=== PATIENT | male | born 1940 ===

== ENCOUNTER 2016-09-25 13:36 | Inpatient (IN) | payer MEDICARE ==
[2016-09-25 14:03] LABS: BASO % 0.8 % (0.0-2.0); EOS # 0.3 K/uL (0.0-0.7); EOS % 4.7 % (0.0-4.0); HEMATOCRIT 40.3 % (35.0-51.0); LYMPH # 0.9 K/uL (1.0-4.3); LYMPH % 17.5 % (20.0-40.0); MEAN CELL VOLUME 87.9 fl (80.0-94.0); MEAN CORPUSCULAR HEMOGLOBIN 29.4 pg (27.0-31.0); MEAN CORPUSCULAR HGB CONC 33.4 g/dL (33.0-37.0); MEAN PLATELET VOLUME 8.2 fl (7.2-11.7); MONO # 0.6 K/uL (0.0-0.8); MONO % 11.1 % (0.0-10.0); NEUT # 3.5 K/uL (1.8-7.0); NEUT % 65.9 % (50.0-75.0); NRBC % 0.1 % (0.0-0.0); RED CELL DISTRIBUTION WIDTH 14.3 % (11.5-14.5); WHITE BLOOD COUNT 5.4 K/uL (4.8-10.8)
[2016-09-25 14:17] LABS: ALB/GLOB RATIO 1.3 (1.0-2.1); ALKALINE PHOSPHATASE 84 U/L (38-126); ALT/SGPT 29 U/L (21-72); AST/SGOT 22 U/L (17-59); BILIRUBIN,TOTAL 0.5 mg/dl (0.2-1.3); BLOOD UREA NITROGEN 19 mg/dl (9-20); CALCIUM 9.3 mg/dL (8.4-10.2); CARBON DIOXIDE 24 mmol/L (22-30); CHLORIDE 107 mmol/L (98-107); CHOLESTEROL 243 mg/dL (0-199); GFR AFRICAN-AMERICAN > 60; GLUCOSE,RANDOM 91 mg/dL (75-110); POTASSIUM 4.5 MMOL/L (3.6-5.0); SODIUM 143 mmol/l (132-148); TOTAL PROTEIN 7.1 G/DL (6.3-8.2)
[2016-09-25 14:18] LABS: PARTIAL THROMBOPLASTIN TIME 23.1 SECONDS (23.3-32.5)
--- NOTE | 2016-09-25 14:28 | CT ---
PROCEDURE: CT HEAD WITHOUT CONTRAST. HISTORY: code stroke COMPARISON: None available. TECHNIQUE: Axial computed tomography images were obtained through the head/brain without intravenous contrast. Radiation dose: Total exam DLP = 847.77 MGy-cm. FINDINGS: HEMORRHAGE: No intracranial hemorrhage. BRAIN: Diffuse atrophy with prominence of the ventricles and sulci noted. No mass effect or edema. Hypodense region involving the right putamen and right anterior limb internal capsule consistent with encephalomalacia. Please note that MRI with diffusion imaging is more sensitive in the detection of acute ischemic event. VENTRICLES: Ex vacuo dilatation of the right frontal horn lateral ventricle. No hydrocephalus. CALVARIUM: Unremarkable. PARANASAL SINUSES: Unremarkable as visualized. No significant inflammatory changes. MASTOID AIR CELLS: Unremarkable as visualized. No inflammatory changes. OTHER FINDINGS: None. IMPRESSION: Evidence of encephalomalacia involving the right putamen and right anterior limb internal capsule. Generalized atrophy. Findings discussed with Dr. Basestt on 09/25/16 at 2:20 p.m..
--- NOTE | 2016-09-25 14:36 | RAD ---
HISTORY: tia COMPARISON: Chest x-ray performed 06/16/15 TECHNIQUE: Chest, one view. FINDINGS: Examination limited by habitus and hypoinflation. LUNGS: No focal consolidation. Please note that chest x-ray has limited sensitivity for the detection of pulmonary masses. PLEURA: No significant pleural effusion identified. No definite pneumothorax . CARDIOVASCULAR: Cardiomegaly. Atherosclerotic calcifications of an ectatic aorta. OSSEOUS STRUCTURES: Degenerative changes of the spine and shoulders. VISUALIZED UPPER ABDOMEN: Unremarkable. OTHER FINDINGS: None. IMPRESSION: Cardiomegaly. Atherosclerotic calcifications of an ectatic aorta.
--- NOTE | 2016-09-25 14:40 | ED PDOC ---
HPI:STROKE - Historian Historian: Patient, Spouse (according to , patient had noticed numbness around the mouth that started while he was shoveling snow with ) - Chief Complaint Chief Complaint: Numbness, Slurred speech - Onset Date: 09/25/16 Time: 12:30 - Timing Timing: Resolved - Context Context: Exercising NIHSS Stroke Scale - Date/Time Evaluation Performed Date Performed: 09/25/16 Time Performed: 13:45 When Was NIHSS Performed: Baseline - How Severe is the Stroke Level of Consciousness: 0=Alert LOC to Questions: 0=Both comments correct LOC to commands: 0=Obeys both correctly Best Gaze: 0=Normal Visual: 0=No visual loss Facial: 0=Normal Motor Arm - Left: 0=No drift Motor Arm - Right: 0=No drift Motor Leg - Left: 0=No drift Motor Leg - Right: 0=No drift Limb Ataxia: 0=Absent Sensory: 0=Normal Best Language: 0=No aphasia Dysarthia: 0=Normal articulation Extinction & Inattention (Neglect): 0=Normal, no object Score: 0 rTPA Inclusion/Exclusion - Refusal of Treatment Patient Refused Treatment: No - Inclusion Criteria for Altepase Patient is 18 years or Older: Yes The Clinical Diagnosis of Ischemic Stroke That is Causing a Potentially Disabling Neurological Deficit: Yes Time of Onset is Well Established to be Less Than 270 Minute Before Treatment Would Begin: Yes Risk/Benefit Discussed With Patient/Family Member Present: Yes - Exclusion Criteria for Altepase Uncontrolled Hypertension at Time of Treatment (Systolic BP above 185 or Diastolic BP above 110 mmHg): No Active Internal Bleeding: No Known Bleeding Diathesis Including but Not Limited to: Platelets Below 100,000/ mm,PTT Above 40 sec After Heparin Use, Current Use of Oral Anitcoagulant With INR Greater Than 1.7 or PT Greater Than 15 secs: No Evidence of an Intracranial Hemorrhage: No Evidence of Major Acute Infarct With Signs Greater Than 1/3 MCA Territory: No Suspicion of Subarachnoid Hemorrhage on Pretreatment Evaluation Even if CT Head Negative For Hemorrhage: No - Warning to TPA With Conditions Following Conditions Weighed Against Anticipated Benefit: No Condition: Stroke Serevity Too Mild Past Medical History Reviewed: Historical Data, Nursing Documentation, Vital Signs Vital Signs: Last Vital Signs Temp 98.8 F 09/25/16 13:43 Pulse 64 09/25/16 14:26 Resp 16 09/25/16 14:26 BP 148/98 H 09/25/16 14:26 Pulse Ox 97 09/25/16 14:26 - Medical History PMH: HTN Denies: Chronic Kidney Disease - Family History Family History: States: No Known Family Hx - Home Medications Home Medications: Ambulatory Orders Medication Instructions Recorded Carvedilol [Coreg] 6.25 mg PO HS 06/16/15 Dorzolamide 2%/Timolol 0.5% 1 drop EACHEYE BID 09/25/16 [Cosopt 2%-0.5% Opht] Multivitamin [Multi-Vitamin Daily] 1 tab PO DAILY 09/25/16 Valsartan [Diovan] 160 mg PO BID 09/25/16 - Allergies Allergies/Adverse Reactions: Allergies Allergy/AdvReac Type Severity Reaction Status Date / Time Penicillins Allergy RASH Verified 09/25/16 13:43 Review of Systems ROS Statement: Except As Marked, All Systems Reviewed And Found Negative Neurological: Positive for: Numbness (perioral, resolved), Change in Speech ( transiently and now resolved). Negative for: Headache Physical Exam - Reviewed Nursing Documentation Reviewed: Yes Vital Signs Reviewed: Yes - Physical Exam Appears: Positive for: Well, Non-toxic, No Acute Distress Head Exam: Positive for: ATRAUMATIC, NORMAL INSPECTION, NORMOCEPHALIC Skin: Positive for: Normal Color, Warm, DRY Eye Exam: Positive for: EOMI, Normal appearance, PERRL ENT: Positive for: Normal ENT Inspection Neck: Positive for: Normal, Painless ROM Cardiovascular/Chest: Positive for: Regular Rate, Rhythm Respiratory: Positive for: CNT, Normal Breath Sounds Gastrointestinal/Abdominal: Positive for: Normal Exam, Bowel Sounds, Soft Back: Positive for: Normal Inspection Extremity: Positive for: Normal ROM Neurologic/Psych: Positive for: Alert, Oriented - Laboratory Results Result Diagrams: 09/25/16 13:59 09/25/16 13:59 - ECG O2 Sat by Pulse Oximetry: 97 - Critical Care Total Time (In Min): 30 Medical Decision Making Medical Decision Making: case d/w Dr. Parker who accepted patient and asked for neuro consult. Case d/w Dr. Thomas. Advised ASA and statins. Disposition - Clinical Impression Clinical Impression: TIA (transient ischemic attack) - Patient ED Disposition Is Patient to be Admitted: Yes Doctor Will See Patient In The: Hospital - Disposition Disposition: Transfer of Care Disposition Time: 14:42 Condition: FAIR - Pt Status Changed To: Hospital Disposition Of: Observation - POA Present On Arrival: None
[2016-09-25] MEDS ORDERED: Enoxaparin 60 mg Syringe SC SCH (16:30)
[2016-09-25] MEDS ORDERED: Patient's Own Med (Dorzolamide 2%/Timolol 0.5% [Cosopt 2%-0.5% Opht] 1 DROP) EACHEYE SCH (17:00)
[2016-09-25 17:42] LABS: THYROID STIMULATING HORMONE 3.61 mIU/ML (0.46-4.68)
[2016-09-25] MEDS: Dorzolamide 2% Ophth Soln OU SCH (19:04)
[2016-09-25] MEDS: Enoxaparin 100 mg Syringe SC SCH (21:02)
[2016-09-26 06:11] LABS: HOMOCYSTEINE 9.1 umol/L (<11.4)
[2016-09-26 07:03] LABS: HEMATOCRIT 38.5 % (35.0-51.0); MEAN CELL VOLUME 88.1 fl (80.0-94.0); MEAN CORPUSCULAR HEMOGLOBIN 29.4 pg (27.0-31.0); MEAN CORPUSCULAR HGB CONC 33.4 g/dL (33.0-37.0); RED CELL DISTRIBUTION WIDTH 14.4 % (11.5-14.5); WHITE BLOOD COUNT 4.3 K/uL (4.8-10.8)
[2016-09-26 07:23] LABS: BLOOD UREA NITROGEN 16 mg/dl (9-20); GFR AFRICAN-AMERICAN > 60; GLUCOSE,RANDOM 95 mg/dL (75-110)
[2016-09-26 07:27] LABS: CHLORIDE 107 mmol/L (98-107); SODIUM 141 mmol/l (132-148)
[2016-09-26 07:30] LABS: CARBON DIOXIDE 23 mmol/L (22-30)
--- NOTE | 2016-09-26 07:58 | CP.PCM.CON ---
History of Present Illness - History of Present Illness History of Present Illness: 76 y/o male admitted w/ slurred speech ?CVA Left facial droop/ Right upper ext weakness PMH: HTN Hyperlipidemia Troponin: neg EKG: NSR w/ 1 PVC Past Patient History - Past Medical History & Family History Past Medical History?: Yes - Past Social History Smoking Status: Former Smoker - CARDIAC Hx Cardiac Disorders: Yes (HTN) Hx Hypercholesterolemia: Yes Hx Hypertension: Yes - PULMONARY Hx Respiratory Disorders: No - NEUROLOGICAL Hx Neurological Disorder: No - HEENT Hx HEENT Problems: No - RENAL Hx Chronic Kidney Disease: No - ENDOCRINE/METABOLIC Hx Endocrine Disorders: No - HEMATOLOGICAL/ONCOLOGICAL Hx Blood Disorders: No Hx AIDS: No Hx Human Immunodeficiency Virus (HIV): No - INTEGUMENTARY Hx Dermatological Problems: No - MUSCULOSKELETAL/RHEUMATOLOGICAL Hx Musculoskeletal Disorders: No Hx Falls: No - GASTROINTESTINAL Hx Gastrointestinal Disorders: No - GENITOURINARY/GYNECOLOGICAL Hx Genitourinary Disorders: No Hx Prostate Cancer: Yes - PSYCHIATRIC Hx Psychophysiologic Disorder: No Hx Substance Use: No - SURGICAL HISTORY Hx Surgeries: Yes Hx Herniorrhaphy: Yes (hernia repair) Other/Comment: colonscopy - ANESTHESIA Hx Anesthesia: Yes Hx Anesthesia Reactions: No Hx Malignant Hyperthermia: No Has any member of the family had a problem w/ anesthesia?: No Meds Allergies/Adverse Reactions: Allergies Allergy/AdvReac Type Severity Reaction Status Date / Time Penicillins Allergy RASH Verified 09/25/16 13:43 - Medications Medications: Current Medications Aspirin (Ecotrin) 325 mg PO DAILY [facility] Carvedilol (Coreg) 6.25 mg PO HS [facility] Last Admin: 09/25/16 21:02 Dose: 6.25 mg Clopidogrel Bisulfate (Plavix) 75 mg PO DAILY [facility] Dorzolamide HCl (Trusopt) 1 drop OU BID [facility] Last Admin: 09/25/16 19:04 Dose: 1 unit Enoxaparin Sodium (Lovenox) 90 mg SC Q12 [facility] PRN Reason: Protocol Last Admin: 09/25/16 21:02 Dose: 90 mg Timolol Maleate (Timoptic 0.5% Ophth Soln) 1 drop OU BID [facility] Last Admin: 09/25/16 19:05 Dose: 1 unit Valsartan (Diovan) 120 mg PO DAILY [facility] Results - Vital Signs Recent Vital Signs: Last Vital Signs Temp 98.1 F 09/26/16 05:00 Pulse 53 L 09/26/16 05:00 Resp 18 09/26/16 05:00 BP 146/65 09/26/16 05:00 Pulse Ox 96 09/26/16 05:00 - Labs Result Diagrams: 09/26/16 06:25 09/26/16 06:25 Labs: Laboratory Results - last 24 hr 09/25/16 09/25/16 09/26/16 16:57 20:41 06:25 WBC 4.3 L RBC 4.37 L Hgb 12.9 Hct 38.5 MCV 88.1 MCH 29.4 MCHC 33.4 RDW 14.4 Plt Count 185 ESR 14 Vitamin B12 332 Homocysteine 9.1 TSH 3rd Generation 3.61 Assessment & Plan (1) TIA (transient ischemic attack) Status: Acute (2) Essential (primary) hypertension Assessment and Plan: cardiac márquez pt appears stable Status: Acute
[2016-09-26 08:09] LABS: POTASSIUM 3.9 MMOL/L (3.6-5.0)
--- NOTE | 2016-09-26 08:26 | HP ---
The patient is a 76-year-old male who was admitted via the Emergency Room because of weakness of the left side of the face and slurred speech while he was shoveling snow on the day of admission. He edi radha around the house for several hours. He showed up in the Emergency Room after the urged him to come. He was evaluated in the Emergency Room and admitted for code stroke to rule out transient i schemic attack. He was seen by the Emergency Room physician, and again by the neurologist; thought t o have a transient ischemic attack, but while in the Emergency Room being evaluated by me, his speech became slurred again. He had no weakness of the rest of the extremities, did not lose consciousness , but then was admitted for workup to rule out a stroke in evolution. He has a past medical history of hyperlipidemia, glaucoma, and hypertension. FAMILY HISTORY: Remarkable for a sister that had a stroke, and a brother that had coronary artery di sease. SOCIALLY: He does not smoke or drink, and lives at home with . REVIEW OF SYSTEMS: Essentially unremarkable. PHYSICAL EXAMINATION: The patient is alert, oriented, appears to be in no apparent distress at present except for having sl urred speech. VITAL SIGNS: Blood pressure 149/98, pulse of 64, respiratory rate 16. He is afebrile. O2 sat 97% o n room air. SKIN: Shows fair turgor. Pupils equal and reactive to light and accommodation. Mouth shows fair hygiene. JVP flat. LUNGS: Clear. HEART: Regular. No murmurs or gallop. No carotid bruit appreciated. HEART: Regular rhythm. ABDOMEN: Soft, nontender, no organomegaly. EXTREMITIES: Show no edema or cyanosis. CENTRAL NERVOUS SYSTEM EXAMINATION: Remarkable for slurred speech. No facial asymmetry noted. No o ther gross neurologic deficits. The patient is able to ambulate. Moves all extremities with no defi cits. LABORATORY DATA: Remarkable for EKG that shows sinus rhythm with PVCs. WBC 5.4, hemoglobin 13.5, platelet count 197,000. PT 10.5, INR 1.0. Sodium 143, potassium 4.5, BUN of 19, creatinine 1.1. Cholesterol 243, triglycerides 22, LDL 147, HDL 32. CHEST X-RAY: No acute cardiopulmonary pathology noted except for cardiomegaly and atherosclerotic ca lcification of an ectatic aorta. CT scan of the brain shows evidence of encephalomalacia involving the right and right anterior limb internal capsule with generalized atrophy. IMPRESSION: Transient ischemic attack. One has to rule out stroke in evolution. Hypertension poorl y controlled, hyperlipidemia, history of glaucoma. PLAN: Administer aspirin, Lovenox subQ q. 12 corrected for weight. Cardiac and neurology evaluation. Aspirin will be given daily. Neuro checks. The patient to go to telemetry. Further workup alread y ordered, including complete neurologic and cardiac workup. MRI of the brain is ordered to rule out further intracranial pathology including a CVA. The patient is presently stable. Case was discussed at length with patient and the family at bedside in the Emergency Room. He will b e transferred to the telemetry unit for close monitoring. Tres Parker MD cc: [id number] TT: 09/25/2016 18:20:51 jn
--- NOTE | 2016-09-26 08:54 | CP.PCM.PN ---
Subjective - Date & Time of Evaluation Date of Evaluation: 09/26/16 Time of Evaluation: 08:58 - Subjective Subjective: SPEECH IS MORE SLURRED TODAY NEW R ARM WEAKNESS AND L FACIAL DROOP NO DIFFICULTY WITH SWALLOWING AND IS ABLE TO MOVE ALL EXTREMITIES AGAINST GRAVITY Objective - Vital Signs/Intake and Output Vital Signs (last 24 hours): Temp Pulse Resp BP Pulse Ox 98 F 53 L 18 133/84 96 09/26/16 08:05 09/26/16 08:05 09/26/16 08:05 09/26/16 08:05 09/26/16 08:05 Intake and Output: 09/26/16 09/26/16 06:59 18:59 Output Total 600 Balance -600 - Medications Medications: Current Medications Aspirin (Ecotrin) 325 mg PO DAILY [facility] Carvedilol (Coreg) 6.25 mg PO HS [facility] Last Admin: 09/25/16 21:02 Dose: 6.25 mg Clopidogrel Bisulfate (Plavix) 75 mg PO DAILY [facility] Dorzolamide HCl (Trusopt) 1 drop OU BID [facility] Last Admin: 09/25/16 19:04 Dose: 1 unit Enoxaparin Sodium (Lovenox) 90 mg SC Q12 [facility] PRN Reason: Protocol Last Admin: 09/25/16 21:02 Dose: 90 mg Timolol Maleate (Timoptic 0.5% Oph Soln) 1 drop OU BID [facility] Last Admin: 09/25/16 19:05 Dose: 1 unit Valsartan (Diovan) 120 mg PO DAILY [facility] - Labs Labs: 09/26/16 06:25 09/26/16 06:25 PT 10.5 SECONDS (9.6-11.2) 09/25/16 13:59 INR 1.01 (0.92-1.08) 09/25/16 13:59 APTT 23.1 SECONDS (23.3-32.5) L 09/25/16 13:59 - Constitutional Appears: Well - Head Exam Head Exam: ATRAUMATIC, NORMAL INSPECTION, NORMOCEPHALIC - Eye Exam Eye Exam: EOMI, Normal appearance, PERRL Pupil Exam: NORMAL ACCOMODATION, PERRL - ENT Exam ENT Exam: Mucous Membranes Moist, Normal Exam - Neck Exam Neck Exam: Full ROM, Normal Inspection. absent: Lymphadenopathy - Respiratory Exam Respiratory Exam: Clear to Ausculation Bilateral, NORMAL BREATHING PATTERN - Cardiovascular Exam Cardiovascular Exam: REGULAR RHYTHM, +S1, +S2. absent: Murmur - GI/Abdominal Exam GI & Abdominal Exam: Soft, Normal Bowel Sounds. absent: Tenderness - Rectal Exam Rectal Exam: NORMAL INSPECTION - Extremities Exam Extremities Exam: Full ROM, Normal Capillary Refill, Normal Inspection. absent : Joint Swelling, Pedal Edema Additional comments: WEAKNESS R ARM - Back Exam Back Exam: NORMAL INSPECTION - Neurological Exam Neurological Exam: Alert, Awake, CN II-XII Intact, Oriented x3 Neuro motor strength exam: Left Upper Extremity: 4, Right Upper Extremity: 3, Left Lower Extremity: 4, Right Lower Extremity: 4 Additional comments: L FACIAL DROOP SLURRED SPEECH - Psychiatric Exam Psychiatric exam: Normal Affect, Normal Mood - Skin Skin Exam: Dry, Intact, Normal Color, Warm Assessment and Plan - Assessment and Plan (Free Text) Assessment: ACUTE CEREBROVASCULAR ACCIDENT HYPERTENSION BETTER CONTROLLED HYPERLIPIDEMIA GLAUCOMA Plan: CONTINUE ANTICOAGULATION RX/OT/PT/SPEECH RX REHAB EVAL WILL DISCUS CASE WITH FAMILY AWAIT RESULT OF CAROTID DOPPLER AND BRAIN MRI/ECHO
[2016-09-26] MEDS: Aspirin 325 mg EC Tablets PO SCH (08:56)
[2016-09-26] MEDS: Enoxaparin 100 mg Syringe SC SCH ×2 (08:57→21:00)
--- NOTE | 2016-09-26 09:13 | MRI ---
PROCEDURE: MRI BRAIN WITHOUT CONTRAST HISTORY: Left cortical stroke COMPARISON: Noncontrast head CT from 09/25/2016 TECHNIQUE: Multiplanar, multisequence MR images of the brain were obtained without intravenous contrast enhancement. FINDINGS: HEMORRHAGE: None DWI: There is focal restricted diffusion in the left inferior paramedian alexandra with mild surrounding vasogenic edema. BRAIN PARENCHYMA: There is an large cystic encephalomalacia/ gliosis in the right basal ganglia and mild ex vacuo dilatation of the right lateral ventricle. There are mild chronic microangiopathic changes. There is no mass, mass effect or abnormal extra-axial fluid collection. VENTRICLES: There is mild age-related global parenchymal volume loss and proportionate enlargement of the ventricles and cortical sulci. CRANIUM: There is normal bone marrow signal pattern. ORBITS: Within normal limits. PARANASAL SINUSES/MASTOIDS: There is a large retention cyst/ polyp in the right maxillary sinus and mild mucosal thickening in the paranasal sinuses. The mastoid air cells are predominantly clear. VASCULAR SYSTEM: There are normal signal voids in the larger intracranial arteries. OTHER FINDINGS: None. IMPRESSION: 1. Acute left inferior paramedian alexandra infarction. Minimal surrounding vasogenic edema. 2. Cystic encephalomalacia/gliosis in the right basal ganglia. 3. Mild chronic microangiopathic changes and mild age-related global parenchymal volume loss. Important findings were discussed with Dr. Tres Parker on 09/26/2016 at 9 a.m.
--- NOTE | 2016-09-26 10:04 | US ---
PROCEDURE: Duplex ultrasound of the carotid and vertebral arteries. HISTORY: stenosis COMPARISON: None available. TECHNIQUE: Grayscale and duplex Doppler evaluation of the cervical carotid and vertebral arteries were performed. The common carotid, carotid bifurcations and cervical ICA and proximal ECA were evaluated. The vertebral arteries were evaluated for gross patency and direction. FINDINGS: There are calcified atherosclerotic plaques in the carotid bulbs, proximal internal carotid arteries and external carotid arteries. RIGHT CAROTID ARTERIES: Common Carotid Artery: Normal. Maximal flow velocity of 127.9 cm/s. Carotid Bifurcation: Normal. Internal Carotid Artery:Normal. Maximal flow velocity of 169.7 cm/s. External Carotid Artery (proximal branches): Elevated peak systolic velocity. Maximal flow velocity of 164.1 cm/s. ICA/CCA Ratio: 1.3 LEFT CAROTID ARTERIES: Common Carotid Artery: Normal. Maximal flow velocity of 131.0 cm/s. Carotid Bifurcation: Normal. Internal Carotid Artery:Normal. Maximal flow velocity of 185.8 cm/s. External Carotid Artery (proximal branches): Elevated peak systolic velocity. Maximal flow velocity of 281.3 cm/s. ICA/CCA Ratio: 1.4 VERTEBRAL ARTERIES: Right Vertebral Artery: Patent. Antegrade flow. Left Vertebral Artery: Patent. Antegrade flow. OTHER FINDINGS: None. IMPRESSION: 1. Elevated peak systolic velocity in both proximal internal carotid arteries corresponding to between 50 and 70% stenosis. No hemodynamically significant stenosis. 2. Patent vertebral arteries with antegrade flow. 2.
[2016-09-26] MEDS: Dorzolamide 2% Ophth Soln OU SCH ×2 (13:34→16:53)
[2016-09-26 17:46] LABS: FOLATE 13.2 ng/mL
--- NOTE | 2016-09-26 18:27 | MRI ---
PROCEDURE: Magnetic Resonance Angiography Brain HISTORY: TIA COMPARISON: None available. TECHNIQUE: 3D time of flight MR angiography of the intracranial arteries was performed. Rotating maximum intensity projection images were generated. FINDINGS: INTERNAL CEREBRAL ARTERIES: Unremarkable. The skull base, petrous, cavernous and supraclinoid segments are bilaterally widely patient. ANTERIOR CEREBRAL ARTERIES: Unremarkable. A1 and A2 segments are widely patent. Smaller distal branches unremarkable, as visualized. MIDDLE CEREBRAL ARTERIES: Unremarkable. M1 and M2 segments are widely patent. Perisylvian branches grossly symmetric. POSTERIOR CIRCULATION: Basilar Artery: Mild atherosclerotic changes are seen with mild stenosis in the proximal basilar Distal Vertebral Arteries: Unremarkable. Posterior Cerebral Arteries: Unremarkable. Posterior Inferior Cerebellar Arteries: Unremarkable. ANEURYSM/ VASCULAR MALFORMATIONS: None. OTHER FINDINGS: None. 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 The study is otherwise unremarkable
--- NOTE | 2016-09-26 18:33 | MRI ---
PROCEDURE: MR Angiography of the neck without contrast HISTORY: TIA COMPARISON: Doppler ultrasound from 09/25/2016 which described 50-70 percent stenosis of both internal carotid arteries TECHNIQUE: 3D [id number] angiography of the neck was performed. Rotating maximum intensity projection images of the cervical carotid and vertebral arteries were generated. The origins of the common carotid arteries were not visualized, which is a limitation inherent to the non-contrast time of flight technique. FINDINGS: RIGHT CAROTID ARTERIES: Common Carotid Artery: Normal. Carotid Bifurcation: There is a mild stenosis at the origin of the right internal carotid measuring approximately 50 percent. Internal Carotid Artery:As above External Carotid Artery (proximal branches): Normal. LEFT CAROTID ARTERIES: Common Carotid Artery: Normal. Carotid Bifurcation: There is mild atherosclerotic irregularity of the proximal internal carotid with no measurable stenosis Internal Carotid Artery:As above External Carotid Artery (proximal branches): Normal. VERTEBRAL ARTERIES: Right Vertebral Artery: Normal. Left Vertebral Artery: Larger than right OTHER FINDINGS: None. IMPRESSION: No significant stenosis
--- NOTE | 2016-09-26 18:59 | CARD ---
APPROVED REPORT EKG Measurement Heart [id number] <Conclusion> Sinus rhythm with sinus arrhythmia with premature ventricular complexes or fusion complexes Otherwise normal ECG
--- NOTE | 2016-09-26 20:30 | PN ---
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 VITAL SIGNS: Blood pressure 160/72, mean arterial pressure of 101, respiratory rate 18, temperature 98.1, pulse rate 59 regular. The patient is more awake, alert, oriented to person, place, and time. CRANIAL NERVE EXAMINATION: R ight nasolabial fold flattening, and right upper extremity drift on outstretched hand. Right leg als o weaker. Deep tendon reflexes mildly hyperreflexic on the right side, right plantars are upgoing. SENSORY EXAMINATION: Shows mild sensorimotor neuropathy. RECOMMENDATIONS: The patient to continue dual antiplatelets. Rest of the medication to be continued . Maintain the mean arterial pressure around 100. Physical therapy, and he is a good candidate for rehabilitation. The rest of the workup, echocardiog shree should be followed. Manny Thomas MD cc: [id number] TT: 09/26/2016 20:29:17 Confirmation # [id number] Dictation # [id number] aliyah
--- NOTE | 2016-09-27 08:12 | CON ---
DATE: 09/25/2016 REASON FOR THE CONSULTATION: Speech impairment, possible stroke. The patient was presenting to the [facility] following cleaning the snow. He has perioral numbness with impaired speech, which is witnessed by his , as well as himself. The patient was brought in to hospital for further evaluation. HISTORY OF PRESENTING ILLNESS: The patient is a 76-year-old right-handed male, usual state of health. This morning he got out to clean the ice. Following cleaning the ice he came to inside the house, stating his that he has mouth numbness associating with speech impairment. While he was speaking could not able to understand; does make her to understand. These same symptoms not associating with any headache, visual or bulbar dysfunction. He denies any focal weakness. PAST MEDICAL HISTORY: Hypertension, transient ischemic attack in the past. ALLERGIES: PENICILLIN. REVIEW OF SYSTEMS: As per H and P. PERSONAL HISTORY: Denies smoking or alcohol use. VITAL SIGNS: Blood pressure 159/78, mean arterial pressure of 105, respiratory rate is 16, temperature afebrile. NECK: Supple. No carotid bruit. HEART SOUNDS: NSR. CHEST: Fair air entry. EXTREMITIES: No edema in legs. NEUROLOGIC EXAMINATION: The patient is examined in the presence of his and his son. He could able to name the object, good naming, repetition is also good. He comprehended. However, his articulation is somewhat different, especially the lingual output is not that great to compare with lip as well as the pharyngeal voice. CRANIAL NERVE EXAMINATION: Visual field intact. Pupil reactive to light, extraocular movements normal, no nystagmus. No facial sensory deficit. Mild facial asymmetry manifesting as a flattening of the right nasolabial fold, however, his son denies that this is his normal as he has been before. Good gag. MOTOR EXAMINATION: Outstretched hand with eyes closed, no drift noted. Power is symmetric on either side. DEEP TENDON REFLEXES: Biceps, brachioradialis, triceps 1+. Both knees are absent, both ankles are absent. Plantars are downgoing. SENSORY EXAMINATION: Grossly intact. No cortical sensory loss. GAIT: He could able to march in one place. Rhomberg sign negative. CONCLUSION: Upon reviewing his history and neurological examination, the patient presenting with possible left cerebral dysfunction manifesting with oral numbness and dysarthria. This could be subcortical versus large vessel ischemic process. However, the symptoms are resolving at present to compare with initial onset of the symptom. 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 WORKUP: CT of the head: No acute pathologies noted. BLOOD WORKUP: WBC 5.4, hemoglobin 13.5, hematocrit 40.3,. PT was 10.4, INR 1.01, PTT 23.1. Sodium 143, potassium 4.5, chloride 107, bicarbonate 24, BUN 19. GFR more than 60. Glucose 91, calcium 9.3. Triglyceride 222, cholesterol 243, LDL 147. RECOMMENDATIONS: 1. Aspirin is added for stroke prophylaxis. 2. Angiotensin receptor blockers with statin should be given. 3. Carotid Doppler/echo/EEG/MRI of the brain also recommended for the stroke. 4. The patient should be kept neuro check evaluation. If anything progressed management will be changed. The patient's condition being extensively discussed with him, as well as his family members. They are aware of the clinical presentation. At this point, the patient can be continuing aspirin with angiotensin receptor blockers and statin. Manny Thomas MD cc: [id number] TT: 09/25/2016 17:49:02 Confirmation # [id number] Dictation # [id number] MTDD
[2016-09-27] MEDS: Enoxaparin 100 mg Syringe SC SCH ×2 (08:45→21:09)
[2016-09-27] MEDS: Dorzolamide 2% Ophth Soln OU SCH ×2 (08:46→16:42)
[2016-09-27] MEDS: Aspirin 325 mg EC Tablets PO SCH (09:00)
--- NOTE | 2016-09-27 11:29 | CARD ---
APPROVED REPORT EXAM: Two-dimensional and M-mode echocardiogram with Doppler and color Doppler. INDICATION CVA/TIA CARDIO EMBOLIC STROKE 2D DIMENSIONS IVSd1.54 (0.7-1.1cm)LVDd4.38 (3.9-5.9cm) PWd1.16 (0.7-1.1cm)IVSs1.80 (0.8-1.2cm) LVDs2.60 (2.5-4.0cm)FS (%) 40.6 % PWs1.67 (0.8-1.2cm) M-Mode DIMENSIONS Left Atrium (MM)3.71 (2.5-4.0cm)IVSd1.29 (0.7-1.1cm) Aortic Root3.32 (2.2-3.7cm)LVDd5.21 (4.0-5.6cm) Aortic Cusp Exc.1.56 (1.5-2.0cm)PWd0.97 (0.7-1.1cm) IVSs1.71 cmFS (%) 51 % LVDs2.56 (2.0-3.8cm)PWs1.71 cm Mitral Valve MV E Jxhdwwsa85.0cm/sMV DECEL [id number] A Ttvpjlvv18.5cm/s MV YIE79umR/A ratio1.1MVA (PHT)3.70cm2 TDI E/Lateral E'0.0E/Medial E'0.0 LEFT VENTRICLE The left ventricle is normal size. There is mild concentric left ventricular hypertrophy. The left ventricular function is normal. The left ventricular ejection fraction is 60% There is normal LV segmental wall motion. The left ventricular diastolic function is normal. No left ventricle thrombus noted on this study. There is no ventricular septal defect visualized. There is no left ventricular aneurysm. There is no mass noted in the left ventricle. RIGHT VENTRICLE The right ventricle is normal size. There is normal right ventricular wall thickness. The right ventricular systolic function is normal. ATRIA The left atrium size is normal. The right atrium size is normal. The interatrial septum is intact with no evidence for an atrial septal defect. AORTIC VALVE The aortic valve is normal in structure and function. There is trace aortic regurgitation. There is no aortic valvular stenosis. There is no aortic valvular vegetation. MITRAL VALVE The mitral valve is normal in structure and function. There is no evidence of mitral valve prolapse. There is no mitral valve stenosis. Mitral regurgitation is trace. TRICUSPID VALVE The tricuspid valve is normal in structure and function. There is no tricuspid valve regurgitation noted. There is no tricuspid valve prolapse or vegetation. There is no tricuspid valve stenosis. PULMONIC VALVE The pulmonary valve is normal in structure and function. There is no pulmonic valvular regurgitation. There is no pulmonic valvular stenosis. GREAT VESSELS The aortic root is normal in size. The ascending aorta is normal in size. The IVC is normal in size and collapses >50% with inspiration. PERICARDIAL EFFUSION The pericardium appears normal. There is no pleural effusion. <Conclusion> Normal LV systolic function Trace Mitral and Aortic Regurgitation
[2016-09-27] MEDS ORDERED: Sodium Chloride 0.9% 1,000 ML IV SCH ×2 (11:30→12:30)
--- NOTE | 2016-09-27 11:46 | PCM.RRTMUL ---
PRESSURE STEAMER TENDER Nurse Assessment - Situation PRESSURE STEAMER TENDER Responder Arrival Time:: 11:54 - Vital Signs Blood Pressure:: 138/73 Pulse Rate:: 80 Respiratory Rate:: 18 Temperature:: 97.6 F Responder Note - Time PRESSURE STEAMER TENDER was called Time PRESSURE STEAMER TENDER was called:: 11:52 - Location Location: [facility] - PRESSURE STEAMER TENDER Team PRESSURE STEAMER TENDER Leader:: Ernst Stevens Resident:: Dominga Marsh - Vital Signs at Initial Assessment Blood Pressure:: 118/71 Pulse Rate:: 52 Respiratory Rate:: 16 - Chest Pain Chest Pain:(If answer is yes, complete next 2 questions): No - Seizure Seizure:: No - Neurological Status Neurological Status (Select all that apply):: Responsive, Verbal - Respiratory PRESSURE STEAMER TENDER Delivery Method:: Room Air - Assessment of Findings EKG: stat. sinus bradycarcia Labs: CMP, troponin IV Fluids: 200 ml /h Summary - Summary of Event Summary of Event: PRESSURE STEAMER TENDER was called at 11:15 am for a 76 yo , m, PMhx/o HTN , Prostate CA admitted for CVA, who was noticed by his and nurse sitting on a chair unresponsive. On responder arrival patient sitting on a chair, awake, alert, pale, cold, and diaphoretic, verbal. Patient transferred to bed. Denies Chest pain, palpitation , SOB Initial VS: 118/71 HR: 47 b/min sat 100 % PE: GA: Patient lying on bed, awake, alert, responsive, follow commands in no acute distress Resp: CTA. no rales, wheezing, rhonchi. CV: RRR, + S1, S2. Bradychardia.HR: 52 b/min Abd: Soft, + BS, No TD, no guarding Neuro: AAO x3, left facial drop, RUE monoparesis. muscle strength 4/5 Impresion: Presyncope secondary to vasovagal reaction Plan -EKG stat: Sinus bradycardia, no St or t wave acute changes -Troponin stat neg -CMP Plan IV fluids NS 200 ml/h and c/w 80 ml/h -Carvedidol reduced doses 3.125 mg PO HS will follow up
[2016-09-27 12:14] LABS: ALB/GLOB RATIO 1.3 (1.0-2.1); ALKALINE PHOSPHATASE 92 U/L (38-126); ALT/SGPT 32 U/L (21-72); AST/SGOT 20 U/L (17-59); BILIRUBIN,TOTAL 0.5 mg/dl (0.2-1.3); BLOOD UREA NITROGEN 22 mg/dl (9-20); CARBON DIOXIDE 21 mmol/L (22-30); CHLORIDE 107 mmol/L (98-107); GFR AFRICAN-AMERICAN > 60; GLUCOSE,RANDOM 122 mg/dL (75-110); POTASSIUM 4.1 MMOL/L (3.6-5.0); SODIUM 140 mmol/l (132-148); TOTAL PROTEIN 7.1 G/DL (6.3-8.2)
[2016-09-27] MEDS ORDERED: Sodium Chloride 0.9% 250 ML IV SCH (12:30)
--- NOTE | 2016-09-27 13:10 | CP.PCM.PN ---
Subjective - Date & Time of Evaluation Date of Evaluation: 09/27/16 Time of Evaluation: 13:11 - Subjective Subjective: EVENTS OF THIS AM NOTED PT HAD FURNACE DOOR TENDER CALLED BECAUSE OF HYPOTENSION REPEAT CT OF BRAIN RESULTS PENDING BP IMPROVED WITH IV HYDRATION NO NEW PHYSICAL FINDINGS CASE DISCUSSED WITH AT BEDSIDE Objective - Vital Signs/Intake and Output Vital Signs (last 24 hours): Temp Pulse Resp BP Pulse Ox 97.3 F L 49 L 18 88/51 L 95 09/27/16 12:24 09/27/16 12:24 09/27/16 12:24 09/27/16 12:24 09/27/16 12:24 Intake and Output: 09/27/16 09/27/16 06:59 18:59 Intake Total 400 Output Total 425 Balance -25 - Medications Medications: Current Medications Aspirin (Ecotrin) 325 mg PO DAILY [facility] Last Admin: 09/27/16 09:00 Dose: 325 mg Atorvastatin Calcium (Lipitor) 20 mg PO DAILY [facility] Last Admin: 09/27/16 08:47 Dose: 20 mg Carvedilol (Coreg) 3.125 mg PO HS [facility] Clopidogrel Bisulfate (Plavix) 75 mg PO DAILY [facility] Last Admin: 09/27/16 08:45 Dose: 75 mg Dorzolamide HCl (Trusopt) 1 drop OU BID [facility] Last Admin: 09/27/16 08:46 Dose: 1 drop Enoxaparin Sodium (Lovenox) 90 mg SC Q12 [facility] PRN Reason: Protocol Last Admin: 09/27/16 08:45 Dose: 90 mg Sodium Chloride (Sodium Chloride 0.9%) 1,000 mls @ 200 mls/hr IV .Q5H [facility] Stop: 09/27/16 16:29 Last Admin: 09/27/16 11:58 Dose: 200 mls/hr Sodium Chloride (Sodium Chloride 0.9%) 1,000 mls @ 80 mls/hr IV .[id number] [facility] Stop: 09/28/16 00:59 Last Admin: 09/27/16 11:59 Dose: 80 mls/hr Sodium Chloride (Sodium Chloride 0.9%) 250 mls @ 250 mls/hr IV .Q1H [facility] Stop: 09/27/16 13:29 Last Admin: 09/27/16 12:28 Dose: 250 mls/hr Timolol Maleate [facility]) 1 drop OU BID [facility] Last Admin: 09/27/16 08:46 Dose: 1 drop Valsartan (Diovan) 120 mg PO DAILY [facility] Last Admin: 09/27/16 08:47 Dose: 120 mg - Labs Labs: 09/27/16 11:55 PT 10.5 SECONDS (9.6-11.2) 09/25/16 13:59 INR 1.01 (0.92-1.08) 09/25/16 13:59 APTT 23.1 SECONDS (23.3-32.5) L 09/25/16 13:59 - Constitutional Appears: Chronically Ill - Head Exam Head Exam: ATRAUMATIC, NORMAL INSPECTION, NORMOCEPHALIC - Eye Exam Eye Exam: EOMI, Normal appearance, PERRL Pupil Exam: NORMAL ACCOMODATION, PERRL - ENT Exam ENT Exam: Mucous Membranes Moist, Normal Exam - Neck Exam Neck Exam: Full ROM, Normal Inspection. absent: Lymphadenopathy - Respiratory Exam Respiratory Exam: Clear to Ausculation Bilateral, NORMAL BREATHING PATTERN - Cardiovascular Exam Cardiovascular Exam: REGULAR RHYTHM, +S1, +S2. absent: Murmur - GI/Abdominal Exam GI & Abdominal Exam: Soft, Normal Bowel Sounds. absent: Tenderness - Rectal Exam Rectal Exam: NORMAL INSPECTION - Extremities Exam Extremities Exam: Full ROM, Normal Capillary Refill, Normal Inspection. absent : Joint Swelling, Pedal Edema - Back Exam Back Exam: NORMAL INSPECTION - Neurological Exam Neurological Exam: Alert, Awake, CN II-XII Intact, Oriented x3 Additional comments: SLURRED SPEECH - Psychiatric Exam Psychiatric exam: Normal Affect, Normal Mood - Skin Skin Exam: Dry, Intact, Normal Color, Warm Assessment and Plan - Assessment and Plan (Free Text) Assessment: ACUTE CVA HYPERTENSION WITH SUDDEN HYPOTENSION Plan: WILL MONITOR IN TELE TODAY IF NO CHANGES IN PHYSICAL FINDINGS OR CT OF BRAIN,WILL TRANSFER TO ACUTE REHAB IN AM
--- NOTE | 2016-09-27 13:32 | CT ---
PROCEDURE: CT HEAD WITHOUT CONTRAST. HISTORY: hypotension, [place] cva COMPARISON: 09/25/2016 TECHNIQUE: Axial computed tomography images were obtained through the head/brain without intravenous contrast. Radiation dose: Total exam DLP = 1240.07 mGy-cm. FINDINGS: HEMORRHAGE: No intracranial hemorrhage. BRAIN: Minimal diffuse atrophy. Large area of cystic encephalomalacia involving the right putamen likely the result of remote ischemic change. No evidence of acute infarct. The restricted diffusion seen on MRI of 09/25/2016 shows no corresponding abnormality on the current CT examination. Minimal periventricular white matter lucency consistent with chronic microvascular ischemic change. VENTRICLES: Unremarkable. No hydrocephalus. CALVARIUM: Unremarkable. PARANASAL SINUSES: Retention cyst/ polyp in the inferior right maxillary antrum. MASTOID AIR CELLS: Unremarkable as visualized. No inflammatory changes. OTHER FINDINGS: None. IMPRESSION: No intracranial hemorrhage. No evidence of acute infarct. Area of restricted diffusion in the left paramedian alexandra seen on MRI examination of 09/25/2016 is not reflected on the current CT examination. Large area of cystic encephalomalacia in the right basal ganglia likely the result of remote ischemic change.
[2016-09-28] MEDS ORDERED: Gadodiamide 287 MG/ML VIAL (15ML) IV ONE (08:50)
[2016-09-28] MEDS: Aspirin 325 mg EC Tablets PO SCH (09:07)
[2016-09-28] MEDS: Enoxaparin 100 mg Syringe SC SCH ×2 (09:10→21:09)
[2016-09-28] MEDS: Dorzolamide 2% Ophth Soln OU SCH ×2 (09:11→17:35)
--- NOTE | 2016-09-28 11:29 | CP.PCM.PN ---
Subjective - Date & Time of Evaluation Date of Evaluation: 09/28/16 Time of Evaluation: 11:34 - Subjective Subjective: SPEECH IMPROVING R ARM WEAKNESS IMPROVING LEGS STILL WEAK WITH UNSTEADY GAIT Objective - Vital Signs/Intake and Output Vital Signs (last 24 hours): Temp Pulse Resp BP Pulse Ox 98.0 F 59 L 20 152/79 H 99 09/28/16 09:30 09/28/16 09:30 09/28/16 09:30 09/28/16 09:30 09/28/16 09:30 Intake and Output: 09/28/16 09/28/16 06:59 18:59 Intake Total 200 Output Total 125 Balance 75 - Medications Medications: Current Medications Aspirin (Ecotrin) 325 mg PO DAILY [facility] Last Admin: 09/28/16 09:07 Dose: 325 mg Atorvastatin Calcium (Lipitor) 20 mg PO DAILY [facility] Last Admin: 09/28/16 09:08 Dose: 20 mg Carvedilol (Coreg) 3.125 mg PO HS [facility] Last Admin: 09/27/16 21:07 Dose: 3.125 mg Clopidogrel Bisulfate (Plavix) 75 mg PO DAILY [facility] Last Admin: 09/28/16 09:10 Dose: 75 mg Dorzolamide HCl (Trusopt) 1 drop OU BID [facility] Last Admin: 09/28/16 09:11 Dose: 1 drop Enoxaparin Sodium (Lovenox) 90 mg SC Q12 [facility] PRN Reason: Protocol Last Admin: 09/28/16 09:10 Dose: 90 mg Timolol Maleate ([facility]) 1 drop OU BID [facility] Last Admin: 09/28/16 09:11 Dose: 1 drop Valsartan (Diovan) 120 mg PO DAILY [facility] Last Admin: 09/27/16 08:47 Dose: 120 mg - Labs Labs: 09/27/16 11:55 PT 10.5 SECONDS (9.6-11.2) 09/25/16 13:59 INR 1.01 (0.92-1.08) 09/25/16 13:59 APTT 23.1 SECONDS (23.3-32.5) L 09/25/16 13:59 - Constitutional Appears: Chronically Ill - Head Exam Head Exam: ATRAUMATIC, NORMAL INSPECTION, NORMOCEPHALIC - Eye Exam Eye Exam: EOMI, Normal appearance, PERRL Pupil Exam: NORMAL ACCOMODATION, PERRL - ENT Exam ENT Exam: Mucous Membranes Moist, Normal Exam - Neck Exam Neck Exam: Full ROM, Normal Inspection. absent: Lymphadenopathy - Respiratory Exam Respiratory Exam: Clear to Ausculation Bilateral, NORMAL BREATHING PATTERN - Cardiovascular Exam Cardiovascular Exam: REGULAR RHYTHM, +S1, +S2. absent: Murmur - GI/Abdominal Exam GI & Abdominal Exam: Soft, Normal Bowel Sounds. absent: Tenderness - Rectal Exam Rectal Exam: NORMAL INSPECTION - Extremities Exam Extremities Exam: Full ROM, Normal Capillary Refill, Normal Inspection. absent : Joint Swelling, Pedal Edema - Back Exam Back Exam: NORMAL INSPECTION - Neurological Exam Neurological Exam: Alert, Awake, CN II-XII Intact, Normal Gait, Oriented x3 Neuro motor strength exam: Left Upper Extremity: 3, Right Upper Extremity: 4, Left Lower Extremity: 3, Right Lower Extremity: 3 Additional comments: FACIAL DROOP IMPROVED - Psychiatric Exam Psychiatric exam: Normal Affect, Normal Mood - Skin Skin Exam: Dry, Intact, Normal Color, Warm Assessment and Plan - Assessment and Plan (Free Text) Assessment: ACUTE CVA HTN Plan: CONTINUE ANTICOAGULATION RX CASE DISCUSSED WITH PT AND ENTIRE FAMILY MAINTAIN PT IN TELE AND CONSIDER TRANSFER TO ACUTE REHAB NEXT WEEK
--- NOTE | 2016-09-28 13:52 | MRI ---
PROCEDURE: MRI examination of the brain with and without contrast HISTORY: r/o MASS LESION CVA, stroke COMPARISON: CT scan in 09/2016 17, MRI examination 09/25/2016. TECHNIQUE: MR examination of the brain was performed utilizing precontrast multiplanar imaging of multiple pulse sequences. Postcontrast axial and sagittal images were also obtained. FINDINGS: When compared with the prior MRI examination there is some mild increase in size of previously identified area of restricted perfusion in the left paramedian alexandra extending towards the midbrain region. There is larger area of restricted perfusion and decreased signal on ADC mapping. Mild amount of adjacent edema is noted. No intracranial hemorrhage is seen in this region or elsewhere in the brain. No abnormal enhancement is seen this region on the postcontrast images. Remainder the examination is unchanged including a large area of encephalomalacia in the right basal ganglia and internal capsule region. No cerebellopontine angle mass is noted. No extra-axial collection is seen. Stable small vessel changes are noted. Vascular structures are patent at the skullbase region. Cervicomedullary junction is unremarkable. No sellar masses are seen. Retro-orbital regions are unremarkable. Stable mild age related atrophy is seen. IMPRESSION: Mild increase in recent infarct in the left paramedian pontine region with mild adjacent edema and slight mass effect but no abnormal enhancement. No other recent area of infarct identified. No evidence of abnormal enhancement or mass enhancing lesion.
--- NOTE | 2016-09-28 17:06 | OP ---
PROCEDURE DATE: 09/28/2016 This is a 16-channel electroencephalogram of awake and drowsy adult. During the study photic stimula tion was performed. Hyperventilation was not performed. The resting electroencephalogram consists of 20-30 microvolt, 9-11 Hz alpha activity seen at the evaristo etal and the occipital leads. Anteriorly fast activity superimposed with 2-3 Hz delta activity seen at the frontal and the central leads. At times 2-3 Hz low amplitude delta activity seen, which is co nsistent with early drowsiness. The photic stimulation did not evoke driving response noted to 2-20 Hz. IMPRESSION: This is a normal electroencephalogram of an awake and drowsy adult. During the study, n either electroencephalographic paroxysmal activities nor focal slowing noted. Manny Thomas MD cc: [id number] TT: 09/28/2016 17:06:24 barry
--- NOTE | 2016-09-28 18:46 | PN ---
DATE: 09/28/2016 TIME OF EVALUATION: 5 p.m. 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 PHYSICAL EXAMINATION: VITAL SIGNS: Blood pressure 153/72, mean arterial pressure of 99, respiratory rate 16, temperature 98.6 with a pulse rate of 56. NEUROLOGIC: The patient is awake, alert, oriented to person, place, and time. Speech seems to be intact. No dysarthria. Mild nasolabial fold flattening on the right side. Right-sided pronator drift and the right leg at 4/5. Plantars are upgoing on the right side; left side was downgoing. The patient's workup consistent with paramedian stroke on the left side and old basal ganglia infarct with encephalomalacia (cystic changes). The patient should continue DVT prophylaxis and antiplatelets as recommended. Continue statin with ACEI. The patient's blood pressure and heart rate should be corrected with garment turner's recommendation. The patient's condition has been discussed with him as well as his family members. Recent workup also showed evidence of collagen vascular disease. I also recommended further workup to stretch the blood workup to assess his collagen vascular disease. Manny Thomas MD cc: [id number] TT: 09/28/2016 18:45:21 Confirmation # [id number] Dictation # [id number] barry MAI
[2016-09-29 08:26] LABS: HOMOCYSTEINE 11.7 umol/L (<11.4)
[2016-09-29] MEDS: Dorzolamide 2% Ophth Soln OU SCH ×2 (09:22→17:49)
[2016-09-29] MEDS: Aspirin 325 mg EC Tablets PO SCH (09:25)
--- NOTE | 2016-09-29 10:55 | CP.PCM.PN ---
Subjective - Date & Time of Evaluation Date of Evaluation: 09/29/16 Time of Evaluation: 10:59 - Subjective Subjective: CLINICALLY IMPROVING SPEECH IMPROVED WEAKNESS OF R ARM IMPROVED FACIAL DROOP BETTER Objective - Vital Signs/Intake and Output Vital Signs (last 24 hours): Temp Pulse Resp BP Pulse Ox 97.9 F 59 L 18 139/66 98 09/29/16 04:59 09/29/16 09:00 09/29/16 04:59 09/29/16 04:59 09/29/16 04:59 Intake and Output: 09/29/16 09/29/16 06:59 18:59 Output Total 150 Balance -150 - Medications Medications: Current Medications Aspirin (Ecotrin) 325 mg PO DAILY [facility] Last Admin: 09/29/16 09:25 Dose: 325 mg Atorvastatin Calcium (Lipitor) 20 mg PO DAILY [facility] Last Admin: 09/29/16 09:21 Dose: 20 mg Carvedilol (Coreg) 3.125 mg PO [facility] Last Admin: 09/28/16 21:09 Dose: 3.125 mg Clopidogrel Bisulfate (Plavix) 75 mg PO DAILY [facility] Last Admin: 09/29/16 09:21 Dose: 75 mg Dorzolamide HCl (Trusopt) 1 drop OU BID [facility] Last Admin: 09/29/16 09:22 Dose: 1 drop Timolol Maleate (Timoptic 0.5% [facility]) 1 drop OU BID [facility] Last Admin: 09/29/16 09:38 Dose: 1 drop Valsartan (Diovan) 120 mg PO DAILY [facility] Last Admin: 09/27/16 08:47 Dose: 120 mg - Labs Labs: 09/27/16 11:55 PT 10.5 SECONDS (9.6-11.2) 09/25/16 13:59 INR 1.01 (0.92-1.08) 09/25/16 13:59 APTT 23.1 SECONDS (23.3-32.5) L 09/25/16 13:59 - Constitutional Appears: No Acute Distress - Head Exam Head Exam: ATRAUMATIC, NORMAL INSPECTION, NORMOCEPHALIC - Eye Exam Eye Exam: EOMI, Normal appearance, PERRL Pupil Exam: NORMAL ACCOMODATION, PERRL - ENT Exam ENT Exam: Mucous Membranes Moist, Normal Exam - Neck Exam Neck Exam: Full ROM, Normal Inspection. absent: Lymphadenopathy - Respiratory Exam Respiratory Exam: Clear to Ausculation Bilateral, NORMAL BREATHING PATTERN - Cardiovascular Exam Cardiovascular Exam: Bradycardia, REGULAR RHYTHM, +S1, +S2. absent: Murmur - GI/Abdominal Exam GI & Abdominal Exam: Soft, Normal Bowel Sounds. absent: Tenderness - Rectal Exam Rectal Exam: NORMAL INSPECTION - Extremities Exam Extremities Exam: Full ROM, Normal Capillary Refill, Normal Inspection. absent : Joint Swelling, Pedal Edema - Back Exam Back Exam: NORMAL INSPECTION - Neurological Exam Neurological Exam: Abnormal Gait, Alert, Awake, CN II-XII Intact, Oriented x3 Additional comments: WEAKNESS OF R ARM IMPROVING - Psychiatric Exam Psychiatric exam: Normal Affect, Normal Mood - Skin Skin Exam: Dry, Intact, Normal Color, Warm Assessment and Plan - Assessment and Plan (Free Text) Assessment: ACUTE CVA EDEMA OF BRAIN WITH MASS EFFECT BUT NO MASSES NOTED ON SCAN CONNECTIVE TISSUE DZ HTN BRADYCARDIA--DUE TO MEDS Plan: ADD DECADRON TO RX MONITOR S.GLU TRANSFER TO ACUTE REHAB IN AM
[2016-09-29 13:27] LABS: HEMATOCRIT 39.9 % (35.0-51.0); MEAN CELL VOLUME 88.7 fl (80.0-94.0); MEAN CORPUSCULAR HEMOGLOBIN 28.8 pg (27.0-31.0); MEAN CORPUSCULAR HGB CONC 32.5 g/dL (33.0-37.0); RED CELL DISTRIBUTION WIDTH 14.5 % (11.5-14.5); WHITE BLOOD COUNT 5.4 K/uL (4.8-10.8)
[2016-09-29 13:36] LABS: BLOOD UREA NITROGEN 25 mg/dl (9-20); CALCIUM 8.8 mg/dL (8.4-10.2); CARBON DIOXIDE 21 mmol/L (22-30); GFR AFRICAN-AMERICAN > 60; GLUCOSE,RANDOM 134 mg/dL (75-110); POTASSIUM 4.6 MMOL/L (3.6-5.0); SODIUM 142 mmol/l (132-148)
[2016-09-29 13:37] LABS: CHLORIDE 105 mmol/L (98-107)
--- NOTE | 2016-09-29 18:55 | PN ---
DATE: 09/29/2016 NEUROLOGICAL PROBLEM: Left subcortical dysfunction manifesting with ataxic hemiparesis on his right side. VITAL SIGNS: Blood pressure 154/64, mean arterial pressure of 94, pulse rate 72 and regular. Temperature 98.6. The patient is examined in the presence of his . He is more awake, more alert. Speech has come back to normal and mentation is also normal as per his . Mild facial asymmetry again noted on his right side. Right hemiparesis with motor deficit, arm more than his leg. Deep tendon reflexes hyperreflexic on the right side. DTRs are upgoing on the right side. From a neurological point of view, the workup is completed. The patient is a good candidate for acute rehabilitation. Continue dual antiplatelets with statin and RIA inhibitors. The patient will be followed closely with you. Manny Thomas MD cc: [id number] TT: 09/29/2016 18:54:39 Confirmation # [id number] Dictation # [id number] barry MTDD
[2016-09-29] MEDS: Enoxaparin 100 mg Syringe SC SCH (21:21)
[2016-09-30 00:19] VITALS: RESP 18
[2016-09-30 07:24] LABS: HEMATOCRIT 37.7 % (35.0-51.0); MEAN CELL VOLUME 88.5 fl (80.0-94.0); MEAN CORPUSCULAR HEMOGLOBIN 28.9 pg (27.0-31.0); MEAN CORPUSCULAR HGB CONC 32.7 g/dL (33.0-37.0); RED CELL DISTRIBUTION WIDTH 14.7 % (11.5-14.5); WHITE BLOOD COUNT 5.5 K/uL (4.8-10.8)
[2016-09-30 07:40] LABS: BLOOD UREA NITROGEN 28 mg/dl (9-20); CALCIUM 8.9 mg/dL (8.4-10.2); CARBON DIOXIDE 24 mmol/L (22-30); CHLORIDE 106 mmol/L (98-107); CHOLESTEROL 161 mg/dL (0-199); GFR AFRICAN-AMERICAN > 60; GLUCOSE,RANDOM 90 mg/dL (75-110); POTASSIUM 4.5 MMOL/L (3.6-5.0); SODIUM 144 mmol/l (132-148)
[2016-09-30] MEDS: Aspirin 325 mg EC Tablets PO SCH (09:08)
[2016-09-30] MEDS: Enoxaparin 100 mg Syringe SC SCH (09:08)
[2016-09-30] MEDS: Dorzolamide 2% Ophth Soln OU SCH (09:10)
--- NOTE | 2016-09-30 09:24 | CP.PCM.DIS ---
Provider - Provider Date of Admission: 09/26/16 08:59 Attending physician: Tres Parker MD Primary care physician: Everardo Celaya Jr, MD Consults: 09/26/16 09:00 Social Work Referral Routine Comment: acute rehab eval Physician Instructions: Reason For Exam: ACUTE REHAB EVAL Time Spent in preparation of Discharge (in minutes): 30 Diagnosis - Discharge Diagnosis (1) Cerebrovascular accident Status: Acute (2) Hypertension Status: Acute (3) Connective tissue disease Status: Acute (4) Cerebral edema Status: Acute Hospital Course - Lab Results Lab Results: Most Recent Lab Values WBC 5.5 K/uL (4.8-10.8) 09/30/16 05:30 RBC 4.26 Mil/uL (4.40-5.90) L 09/30/16 05:30 Hgb 12.3 g/dL (12.0-18.0) 09/30/16 05:30 Hct 37.7 % (35.0-51.0) 09/30/16 05:30 MCV 88.5 fl (80.0-94.0) 09/30/16 05:30 MCH 28.9 pg (27.0-31.0) 09/30/16 05:30 MCHC 32.7 g/dL (33.0-37.0) L 09/30/16 05:30 RDW 14.7 % (11.5-14.5) H 09/30/16 05:30 Plt Count 177 K/uL (130-400) 09/30/16 05:30 MPV 8.2 fl (7.2-11.7) 09/25/16 13:59 Neut % (Auto) 65.9 % (50.0-75.0) 09/25/16 13:59 Lymph % (Auto) 17.5 % (20.0-40.0) L 09/25/16 13:59 Sanders % (Auto) 11.1 % (0.0-10.0) H 09/25/16 13:59 Eos % (Auto) 4.7 % (0.0-4.0) H 09/25/16 13:59 Baso % (Auto) 0.8 % (0.0-2.0) 09/25/16 13:59 Neut # 3.5 K/uL (1.8-7.0) 09/25/16 13:59 Lymph # 0.9 K/uL (1.0-4.3) L 09/25/16 13:59 Sanders # 0.6 K/uL (0.0-0.8) 09/25/16 13:59 Eos # 0.3 K/uL (0.0-0.7) 09/25/16 13:59 Baso # 0.0 K/uL (0.0-0.2) 09/25/16 13:59 ESR 14 mm/hr (0-20) 09/25/16 20:41 PT 10.5 SECONDS (9.6-11.2) 09/25/16 13:59 INR 1.01 (0.92-1.08) 09/25/16 13:59 APTT 23.1 SECONDS (23.3-32.5) L 09/25/16 13:59 Sodium 144 mmol/l (132-148) 09/30/16 05:30 Potassium 4.5 MMOL/L (3.6-5.0) 09/30/16 05:30 Chloride 106 mmol/L (98-107) 09/30/16 05:30 Carbon Dioxide 24 mmol/L (22-30) 09/30/16 05:30 Anion Gap 18 (10-20) 09/30/16 05:30 BUN 28 mg/dl (9-20) H 09/30/16 05:30 Creatinine 1.1 mg/dL (0.8-1.5) 09/30/16 05:30 Est GFR ( Amer) > 60 09/30/16 05:30 Est GFR (Non-Af Amer) > 60 09/30/16 05:30 POC Glucose (mg/dL) 102 mg/dL (65-110) 09/30/16 05:47 Random Glucose 90 mg/dL (75-110) 09/30/16 05:30 Hemoglobin A1c 5.8 % (4.2-6.5) 09/25/16 13:59 Calcium 8.9 mg/dL (8.4-10.2) 09/30/16 05:30 Total Bilirubin 0.5 mg/dl (0.2-1.3) 09/27/16 11:55 AST 20 U/L (17-59) 09/27/16 11:55 ALT 32 U/L (21-72) 09/27/16 11:55 Alkaline Phosphatase 92 U/L (38-126) 09/27/16 11:55 Troponin I < 0.0120 ng/mL (0.00-0.120) 09/27/16 11:55 Total Protein 7.1 G/DL (6.3-8.2) 09/27/16 11:55 Albumin 4.0 g/dL (3.5-5.0) 09/27/16 11:55 Globulin 3.1 gm/dL (2.2-3.9) 09/27/16 11:55 Albumin/Globulin Ratio 1.3 (1.0-2.1) 09/27/16 11:55 Triglycerides 167 mg/DL (0-149) H D 09/30/16 05:30 Cholesterol 161 mg/dL (0-199) 09/30/16 05:30 LDL Cholesterol Direct 101 mg/dL (0-129) 09/30/16 05:30 HDL Cholesterol 27 MG/DL (30-70) L 09/30/16 05:30 Vitamin B12 332 pg/mL (239-931) 09/25/16 16:57 Folate 13.2 ng/mL 09/25/16 16:57 Homocysteine 11.7 umol/L ( <11.4) H 09/28/16 07:30 TSH 3rd Generation 3.61 mIU/ML (0.46-4.68) 09/25/16 16:57 Rheum Arthritis Panel Negative (NEGATIVE) 09/28/16 07:30 ORLY Screen Positive (Negative) H 09/25/16 20:41 ORLY Titer 1:320 Titer (<1:40) H 09/25/16 20:41 ORLY Titer 2 TEST NOT PERFORMED 09/25/16 20:41 ORLY Pattern Speckled (()) H 09/25/16 20:41 ORLY Pattern 2 TEST NOT PERFORMED 09/25/16 20:41 RPR Nonreactive (NONREACTIVE) 09/25/16 20:41 Blood Type A POSITIVE 09/25/16 13:58 Antibody Screen Negative 09/25/16 13:58 BBK History Checked No verified bt 09/25/16 13:58 - Hospital Course Hospital Course: SPEECH IMPROVED WEAKNESS OF L ARM AND FACIAL DROOP IMPROVED GAIT IS STILL UNSTEADY Discharge Exam - Head Exam Head Exam: ATRAUMATIC, NORMAL INSPECTION, NORMOCEPHALIC - Eye Exam Eye Exam: EOMI, Normal appearance, PERRL Pupil Exam: NORMAL ACCOMODATION, PERRL - GI/Abdominal Exam GI & Abdominal Exam: Normal Bowel Sounds - Rectal Exam Rectal Exam: NORMAL INSPECTION - Neurological Exam Neurological exam: Abnormal Gait, Alert, CN II-XII Intact, Oriented x3, Reflexes Normal - Psychiatric Exam Psychiatric exam: Normal Affect, Normal Mood - Skin Skin Exam: Dry, Intact, Normal Color, Warm Discharge Plan - Discharge Medications Prescriptions: Aspirin 325 mg PO DAILY #30 tab - Follow Up Plan Condition: FAIR Disposition: REHAB FACILITY/REHAB UNIT Patient education suggested?: Yes Instructions: Transient Ischemic Attack (ED) Additional Instructions: patient cleared for discharge to Acute Rehab today by and cont. current meds (see reconciliation) cont. PT/))OT Referrals: Everardo Celaya MD [Primary Care Provider] - Tres Parker MD [Staff Provider] -
--- NOTE | 2016-09-30 10:17 | CARD ---
APPROVED REPORT EKG Measurement Heart [id number] <Conclusion> Sinus bradycardia Otherwise normal ECG
[2016-09-30 12:31] VITALS: BP 149/69; PULSE 66; TEMP 97.9; O2SAT 99
[2016-10-01 14:05] LABS: B2 GLYCOPROTEIN I AB(IGA) <9 SAU (<=20); B2 GLYCOPROTEIN I AB(IGG) <9 SGU (<=20); B2 GLYCOPROTEIN I AB(IGM) <9 SMU (<=20)
[2016-10-01 22:24] LABS: CARDIOLIPIN AB (IGA) <11 APL (<=11)
[2016-10-02 05:41] LABS: PHOSPHATIDYLSERINE AB IGA <20 U/mL (<20); PHOSPHATIDYLSERINE AB IGM <25 U/mL (<25)
== END 2016-09-30 14:24 | DRG 64 ==
LOC: H.ER 13:36 → H.ERHOLD 14:32 → H.TEL 16:46 → OBSVTOIN 09-26 08:59
PROVIDERS: ADMIT Internal Medicine Pulmonary Disease; ATTEND Internal Medicine Pulmonary Disease
PROC: 4A00X4Z Measurement of Central Nervous Electrical Activity, External Approach (ICD-10-PCS; principal; 2016-09-28)
DX: I63.9 Cerebral infarction, unspecified (principal); G93.6 Cerebral edema; I95.9 Hypotension, unspecified; G81.91 Hemiplegia, unspecified affecting right dominant side; G62.9 Polyneuropathy, unspecified; R00.1 Bradycardia, unspecified; I10 Essential (primary) hypertension; R29.810 Facial weakness; R47.81 Slurred speech; E78.5 Hyperlipidemia, unspecified; M35.9 Systemic involvement of connective tissue, unspecified; H40.9 Unspecified glaucoma; T50.995A Adverse effect of other drugs, medicaments and biological substances, initial encounter; Z88.0 Allergy status to penicillin; Z86.73 Personal history of transient ischemic attack (TIA), and cerebral infarction without residual deficits; Z87.891 Personal history of nicotine dependence; Z85.46 Personal history of malignant neoplasm of prostate; Y92.230 Patient room in hospital as the place of occurrence of the external cause

== ENCOUNTER 2016-09-27 19:34 | Inpatient (IN) | payer MEDICARE ==
[2016-09-30 14:09] VITALS: BMI 29.2
[2016-09-30] MEDS: Dorzolamide 2% Ophth Soln OU SCH (16:35)
[2016-09-30] MEDS: Enoxaparin 100 mg Syringe SC SCH (21:12)
[2016-10-01 07:18] LABS: HEMATOCRIT 37.8 % (35.0-51.0); MEAN CELL VOLUME 89.3 fl (80.0-94.0); MEAN CORPUSCULAR HEMOGLOBIN 28.8 pg (27.0-31.0); MEAN CORPUSCULAR HGB CONC 32.2 g/dL (33.0-37.0); RED CELL DISTRIBUTION WIDTH 14.3 % (11.5-14.5)
[2016-10-01 07:36] LABS: BLOOD UREA NITROGEN 29 mg/dl (9-20); CARBON DIOXIDE 25 mmol/L (22-30); CHLORIDE 107 mmol/L (98-107); GFR AFRICAN-AMERICAN > 60; GLUCOSE,RANDOM 86 mg/dL (75-110); POTASSIUM 4.3 MMOL/L (3.6-5.0); SODIUM 144 mmol/l (132-148)
[2016-10-01] MEDS: Enoxaparin 100 mg Syringe SC SCH ×2 (09:18→21:16)
[2016-10-01] MEDS: Dorzolamide 2% Ophth Soln OU SCH ×2 (09:19→17:10)
--- NOTE | 2016-10-01 12:06 | HP ---
The patient is a 76-year-old male who was admitted to the medical floor because of acute cerebrovascu lar accident, associated with weakness of the right arm, facial symmetry and slurred speech. He clin ically improved after therapy on the medical floor and then was transferred to acute rehab. PAST MEDICAL HISTORY: Hypertension, hyperlipidemia and recently discovered connective tissue disease . FAMILY HISTORY: Noncontributory except for a sister who had cerebrovascular accident. SOCIAL HISTORY: He does not smoke or drink. REVIEW OF SYSTEMS: Essentially unremarkable. PHYSICAL EXAMINATION: GENERAL: The patient is alert, oriented, appears to be in no acute distress. VITAL SIGNS: Blood pressure 149/64, pulse of 63, respiratory rate 20. He is afebrile. O2 sat 98% o n room air. SKIN: Shows fair turgor. HEENT: Pupils equal and reactive to light and accommodation. Mouth shows fair hygiene. NECK: JVP flat. LUNGS: Clear. HEART: Regular. No murmurs or gallops. ABDOMEN: Soft, nontender, no organomegaly. EXTREMITIES: Shows no edema or cyanosis. CENTRAL NERVOUS SYSTEM: Grossly intact. Speech has returned to normal. Weakness of extremities has also improved but gait still unsteady. LABORATORY DATA: Unremarkable. IMPRESSION: Acute cerebrovascular accidents with weakness of extremities and unsteadiness of gait, h ypertension, fairly controlled; hyperlipidemia, history of connective tissue disease. PLAN: Continue therapy as ordered, aggressive physical therapy and occupational therapy. Continue a nticoagulation. The patient to seek rheumatology evaluation as an outpatient when discharged. Tres Parker MD cc: [id number] TT: 10/01/2016 12:06:12 sn
--- NOTE | 2016-10-01 12:19 | CP.PCM.CON ---
History of Present Illness - History of Present Illness History of Present Illness: patient is a 76 year old male with right sided weakness no other complaints at present lexx to Er with slurred speech and numbness and weakness Review of Systems - Constitutional Constitutional: Weakness - Musculoskeletal Musculoskeletal: Abnormal Gait, Muscle Weakness Past Patient History - Past Medical History & Family History Past Medical History?: Yes - Past Social History Smoking Status: Former Smoker - CARDIAC Hx Cardiac Disorders: Yes (HTN) Hx Hypercholesterolemia: Yes Hx Hypertension: Yes - PULMONARY Hx Respiratory Disorders: No - NEUROLOGICAL Hx Neurological Disorder: No Other/Comment: CVA 09/25/16 - HEENT Hx HEENT Problems: Yes Hx Cataracts: Yes (w/ surgery 4 years ago) Hx Glaucoma: Yes (Both eyes) Other/Comment: Reading glasses - RENAL Hx Chronic Kidney Disease: No Hx Kidney Stones: Yes (20-30 years ago) - ENDOCRINE/METABOLIC Hx Endocrine Disorders: No - HEMATOLOGICAL/ONCOLOGICAL Hx Blood Disorders: No Hx AIDS: No Hx Human Immunodeficiency Virus (HIV): No Other/Comment: Prostate Cancer a year ago w/ radiation. - INTEGUMENTARY Hx Dermatological Problems: No - MUSCULOSKELETAL/RHEUMATOLOGICAL Hx Musculoskeletal Disorders: No Hx Falls: No - GASTROINTESTINAL Hx Gastrointestinal Disorders: No Other/Comment: Hernia surgery 3-4 yrs ago - GENITOURINARY/GYNECOLOGICAL Hx Genitourinary Disorders: No Hx Prostate Cancer: Yes (w/ radiation) - PSYCHIATRIC Hx Psychophysiologic Disorder: No Hx Substance Use: No - SURGICAL HISTORY Hx Surgeries: Yes Hx Herniorrhaphy: Yes (hernia repair) Other/Comment: colonscopy - ANESTHESIA Hx Anesthesia: Yes Hx Anesthesia Reactions: No Hx Malignant Hyperthermia: No Meds Allergies/Adverse Reactions: Allergies Allergy/AdvReac Type Severity Reaction Status Date / Time Penicillins Allergy HEADACHE Verified 09/30/16 14:09 - Medications Medications: Current Medications Aspirin (Aspirin) 325 mg PO DAILY [facility] Last Admin: 10/01/16 09:16 Dose: 325 mg Atorvastatin Calcium (Lipitor) 20 mg PO DAILY@2100 [facility] Carvedilol (Coreg) 6.25 mg PO [facility] Last Admin: 09/30/16 21:24 Dose: 6.25 mg Clopidogrel Bisulfate (Plavix) 75 mg PO DAILY [facility] Last Admin: 10/01/16 09:19 Dose: 75 mg Dexamethasone (Decadron) 2 mg PO DAILY [facility] Last Admin: 10/01/16 09:16 Dose: 2 mg Dorzolamide HCl (Trusopt) 1 drop OU BID [facility] Last Admin: 10/01/16 09:19 Dose: 1 drop Enoxaparin Sodium (Lovenox) 90 mg SC Q12 [facility] PRN Reason: Protocol Last Admin: 10/01/16 09:18 Dose: 90 mg Timolol Maleate (Timoptic 0.5% Ophth Soln) 1 drop OU BID [facility] Last Admin: 10/01/16 09:16 Dose: 1 drop Physical Exam - Head Exam Head Exam: ATRAUMATIC, NORMAL INSPECTION, NORMOCEPHALIC - Eye Exam Eye Exam: EOMI, Normal appearance, PERRL Pupil Exam: NORMAL ACCOMODATION - ENT Exam ENT Exam: Mucous Membranes Moist, Normal Exam - Respiratory Exam Respiratory Exam: NORMAL BREATHING PATTERN - Cardiovascular Exam Cardiovascular Exam: REGULAR RHYTHM - Exam External exam: NORMAL EXTERNAL EXAM - Extremities Exam Extremities exam: Positive for: normal inspection Additional comments: right leg and right arm weakness muscle strenght 3/5 sight weakness with foot dorsiflexors - Back Exam Back exam: NORMAL INSPECTION - Neurological Exam Neurological exam: Alert, CN II-XII Intact Additional comments: dtr 2 plus decreased sensation right side - Psychiatric Exam Psychiatric exam: Normal Affect, Normal Mood Results - Vital Signs Recent Vital Signs: Last Vital Signs Temp 98.2 F 10/01/16 09:00 Pulse 68 10/01/16 09:00 Resp 20 09/30/16 19:53 BP 118/55 L 10/01/16 09:00 Pulse Ox 20 L 10/01/16 09:00 - Labs Result Diagrams: 10/01/16 07:07 10/01/16 07:07 Labs: Laboratory Results - last 24 hr 09/30/16 09/30/16 10/01/16 16:25 20:59 06:58 WBC RBC Hgb Hct MCV MCH MCHC RDW Plt Count Sodium Potassium Chloride Carbon Dioxide Anion Gap BUN Creatinine Est GFR ( Amer) Est GFR (Non-Af Amer) POC Glucose (mg/dL) 105 135 H 74 Random Glucose Calcium 10/01/16 07:07 WBC 5.0 RBC 4.24 L Hgb 12.2 Hct 37.8 MCV 89.3 MCH 28.8 MCHC 32.2 L RDW 14.3 Plt Count 168 Sodium 144 Potassium 4.3 Chloride 107 Carbon Dioxide 25 Anion Gap 16 BUN 29 H Creatinine 1.0 Est GFR ( Amer) > 60 Est GFR (Non-Af Amer) > 60 POC Glucose (mg/dL) Random Glucose 86 Calcium 9.0 Assessment & Plan (1) Cerebral edema Status: Acute (2) Cerebrovascular accident Assessment and Plan: plan for physicial, occupational, receational and speech therapy Goals for modified Independent Plan for rom , strenghtening, transfers, gait training Adls , equipment and speech evaluation Status: Acute (3) Connective tissue disease Status: Acute (4) Essential (primary) hypertension Status: Acute (5) Hypertension Status: Acute (6) TIA (transient ischemic attack) Status: Acute (7) Near syncope Status: Acute
--- NOTE | 2016-10-01 12:29 | CP.PCM.PN ---
Subjective - Date & Time of Evaluation Date of Evaluation: 10/01/16 Time of Evaluation: 10:00 - Subjective Subjective: patient with weakness of right side Objective - Vital Signs/Intake and Output Vital Signs (last 24 hours): Temp Pulse Resp BP Pulse Ox 98.2 F 68 20 118/55 L 20 L 10/01/16 09:00 10/01/16 09:00 09/30/16 19:53 10/01/16 09:00 10/01/16 09:00 - Medications Medications: Current Medications Aspirin (Aspirin) 325 mg PO DAILY [facility] Last Admin: 10/01/16 09:16 Dose: 325 mg Atorvastatin Calcium (Lipitor) 20 mg PO DAILY@2100 [facility] Carvedilol (Coreg) 6.25 mg PO HS [facility] Last Admin: 09/30/16 21:24 Dose: 6.25 mg Clopidogrel Bisulfate (Plavix) 75 mg PO DAILY [facility] Last Admin: 10/01/16 09:19 Dose: 75 mg Dexamethasone (Decadron) 2 mg PO DAILY [facility] Last Admin: 10/01/16 09:16 Dose: 2 mg Dorzolamide HCl (Trusopt) 1 drop OU BID [facility] Last Admin: 10/01/16 09:19 Dose: 1 drop Enoxaparin Sodium (Lovenox) 90 mg SC Q12 [facility] PRN Reason: Protocol Last Admin: 10/01/16 09:18 Dose: 90 mg Timolol Maleate (Timoptic 0.5% Oph Soln) 1 drop OU BID [facility] Last Admin: 10/01/16 09:16 Dose: 1 drop - Labs Labs: 10/01/16 07:07 10/01/16 07:07 - Head Exam Head Exam: ATRAUMATIC, NORMAL INSPECTION, NORMOCEPHALIC - Eye Exam Eye Exam: EOMI, Normal appearance, PERRL Pupil Exam: NORMAL ACCOMODATION - ENT Exam ENT Exam: Mucous Membranes Moist, Normal Exam - Neck Exam Neck Exam: Normal Inspection - Respiratory Exam Respiratory Exam: NORMAL BREATHING PATTERN - Cardiovascular Exam Cardiovascular Exam: REGULAR RHYTHM - GI/Abdominal Exam GI & Abdominal Exam: Normal Bowel Sounds - Rectal Exam Rectal Exam: NORMAL INSPECTION - Exam Exam: NORMAL INSPECTION External exam: NORMAL EXTERNAL EXAM - Extremities Exam Extremities Exam: Normal Capillary Refill, Normal Inspection - Back Exam Back Exam: NORMAL INSPECTION - Neurological Exam Neurological Exam: Alert, Awake Neuro motor strength exam: Left Upper Extremity: 4, Right Upper Extremity: 2/1, Left Lower Extremity: 4, Right Lower Extremity: 2/1 - Psychiatric Exam Psychiatric exam: Normal Affect, Normal Mood - Skin Skin Exam: Dry, Intact, Normal Color Assessment and Plan (1) Cerebral edema Status: Acute (2) Cerebrovascular accident Assessment & Plan: plan for physcial, occupational rec therapy and speech therapy for team conference for for tomorrow Status: Acute (3) Connective tissue disease Status: Acute (4) Essential (primary) hypertension Status: Acute (5) Hypertension Status: Acute (6) TIA (transient ischemic attack) Status: Acute (7) Near syncope Status: Acute
--- NOTE | 2016-10-01 12:59 | PN ---
DATE: 10/01/2016 The patient is a 76-year-old friendly male admitted for acute inpatient rehab program on . The length of stay for this patient is 2-3 weeks. Rehab impairment of problems with slurred spe ech, gait balance, ambulation and problems with transfers. ETIOLOGICAL DIAGNOSES: Acute cerebrovascular, ICD code of 01.2; hyperlipidemia, glaucoma, hypertensi on. MEDICAL PROGNOSIS: Good. INTERVENTIONS: Physical therapy, occupational therapy, recreational therapy and speech therapy. GOALS FOR THE PATIENT: To be independent in bed mobility, independence of supervision, functional po sitional changes, independence of supervision for simple transfers, supervision and contact guard for complex transfers, independence of supervision for ambulation with assistive devices, supervision an d contact guard for elevations. Functional outcome is good. No acute barriers noted for discharge. DISCHARGE DISPOSITION: To be discharged home with supportive services with the family. The patient was independent previously and the goals are for modified independence. Otoniel Calderon MD cc: [id number] TT: 10/01/2016 12:58:12 Confirmation # [id number] Dictation # [id number]
--- NOTE | 2016-10-01 18:07 | PN ---
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 VITAL SIGNS: Blood pressure 136/67, mean arterial pressure of 90, respiratory rate is 16, temperatur e afebrile. The patient is examined in the presence of the family members. He is awake, alert, oriented to perso n, place, and time. SPEECH: At times he has dysarthria. Right arm shows mild pronator drift. Strength: Laboratory Supervisor is 4/5, proximally 5-/5. Right leg 4/5 proxima lly as well as distally noted. COORDINATION: [id number] dysmetria, and right hip proportionate to his weakness. The patient is comfortable sitting in the chair. MANAGEMENT: 1. Physical therapy should be done as per the schedule. 2. DVT prophylaxis. 3. Blood pressure control. Keep the mean arterial pressure around 100. 4. Diabetic control should be done. 5. Weight reduction and a proper exercise have been discussed with the patient. 6. Continue aspirin and Plavix for now. Manny Thomas MD cc: [id number] TT: 10/01/2016 18:07:10 Confirmation # [id number] Dictation # [id number] [id number]
--- NOTE | 2016-10-02 08:18 | CP.PCM.PN ---
Subjective - Date & Time of Evaluation Date of Evaluation: 10/02/16 Time of Evaluation: 08:20 - Subjective Subjective: CLINICALLY IMPROVING R ARM WEAKNESS AND SPEECH IMPROVING GAIT STILL UNSTEADY Objective - Vital Signs/Intake and Output Vital Signs (last 24 hours): Temp Pulse Resp BP Pulse Ox 97.9 F 64 20 142/69 100 10/01/16 20:45 10/01/16 21:19 10/01/16 20:45 10/01/16 21:19 10/01/16 20:45 - Medications Medications: Current Medications Aspirin (Aspirin) 325 mg PO DAILY [facility] Last Admin: 10/01/16 09:16 Dose: 325 mg Atorvastatin Calcium (Lipitor) 20 mg PO DAILY@2100 [facility] Last Admin: 10/01/16 21:17 Dose: 20 mg Carvedilol (Coreg) 6.25 mg PO HS [facility] Last Admin: 10/01/16 21:19 Dose: 6.25 mg Clopidogrel Bisulfate (Plavix) 75 mg PO DAILY [facility] Last Admin: 10/01/16 09:19 Dose: 75 mg Dexamethasone (Decadron) 2 mg PO DAILY [facility] Last Admin: 10/01/16 09:16 Dose: 2 mg Dorzolamide HCl (Trusopt) 1 drop OU BID [facility] Last Admin: 10/01/16 17:10 Dose: 1 drop Enoxaparin Sodium (Lovenox) 90 mg SC Q12 [facility] PRN Reason: Protocol Last Admin: 10/01/16 21:16 Dose: 90 mg Sertraline HCl (Zoloft) 25 mg PO DAILY [facility] Timolol Maleate (Timoptic 0.5% Oph Soln) 1 drop OU BID [facility] Last Admin: 10/01/16 17:10 Dose: 1 drop - Labs Labs: 10/01/16 07:07 10/01/16 07:07 - Constitutional Appears: Well - Head Exam Head Exam: ATRAUMATIC, NORMAL INSPECTION, NORMOCEPHALIC - Eye Exam Eye Exam: EOMI, Normal appearance, PERRL Pupil Exam: NORMAL ACCOMODATION, PERRL - ENT Exam ENT Exam: Mucous Membranes Moist, Normal Exam - Neck Exam Neck Exam: Full ROM, Normal Inspection. absent: Lymphadenopathy - Respiratory Exam Respiratory Exam: Clear to Ausculation Bilateral, NORMAL BREATHING PATTERN - Cardiovascular Exam Cardiovascular Exam: REGULAR RHYTHM, +S1, +S2. absent: Murmur - GI/Abdominal Exam GI & Abdominal Exam: Soft, Normal Bowel Sounds. absent: Tenderness - Rectal Exam Rectal Exam: NORMAL INSPECTION - Extremities Exam Extremities Exam: Full ROM, Normal Capillary Refill, Normal Inspection. absent : Joint Swelling, Pedal Edema - Back Exam Back Exam: NORMAL INSPECTION - Neurological Exam Neurological Exam: Abnormal Gait, Alert, Awake, CN II-XII Intact, Oriented x3 Neuro motor strength exam: Left Upper Extremity: 4, Right Upper Extremity: 3, Left Lower Extremity: 4, Right Lower Extremity: 4 - Psychiatric Exam Psychiatric exam: Depressed - Skin Skin Exam: Dry, Intact, Normal Color, Warm Assessment and Plan - Assessment and Plan (Free Text) Assessment: ACUTE CVA HTN CEREBRAL EDEMA CONNECTIVE TISSUE DZ Plan: CONTINUE RX ORDERED WILL PROBABLY D/C LOVENOX IN AM ONCE PT 'S GAIT IMPROVES
[2016-10-02] MEDS: Enoxaparin 100 mg Syringe SC SCH ×2 (08:50→22:02)
[2016-10-02] MEDS: Dorzolamide 2% Ophth Soln OU SCH ×2 (08:51→17:26)
[2016-10-02] MEDS: Pantoprazole 40 mg EC Tab PO SCH (10:00)
--- NOTE | 2016-10-02 12:05 | PSY.TMCNF ---
Nursing - Vital Signs Vital Signs (Last 8 hours): Vital Signs 10/02/16 08:36 Temperature 97.6 F Pulse Rate 58 L Respiratory 21 Rate Blood Pressure 137/57 L O2 Sat by Pulse 98 Oximetry - Medications/Other Issues Comment: Pt at moderate nutritional risk. goals: po intake of meals >75% with tolerance upon follow up. Follow-up due on 10/08/2016 - Bladder Management Bladder Pattern: Normal Voiding Method: Urinal - Bowel Management Bowel Pattern: Normal - Goals/Time Frame Comments: Pt was seen awake and alert sitting in his wheelchair in his room. Pt agreeable to participate in evaluation session. Pt was educated on the benefits of participating in recreation therapy sessions throughout stay on unit. Pt was able to identify his leisure interests such as reading, writing, and watching television. Pt also reported he enjoys completing word finds. Pt c/o weakness in R hand and reported he writes with R hand. Pt's mood was stable-positive. Physical Therapy - Transfers Sit to Stand: Verbal Cues, Moderate Assistance - Ambulation Level of Assistance: Minimal Assistance, Moderate Assistance Distance (ft.): 75 - Stair Negotiation Stairs: Level of Assistance: Not Tested Handrails: Bilateral - Standing Balance Static Stand: Minimal Assistance Dynamic Stand: Moderate Assistance - Assessment/Plan Assessment: Dustin Mills presents with 1.) mild-moderate dysarthria characterized by L facial weakness with impaired articulatory precision and mildly reduced respiration for phonation negatively impacting intelligibility; and 2.) mild cognitive deficits characterized by impaired short-term recall and linguistic thought organization. Pt presents with mild R facial droop, though oropharyngeal swallow appears WFL; he utilizes compensatory strategies independently; although pt can tolerate regular solids, he requested to remain on bite-sized secondary to R hand weakness negatively impacting his ablity to cut his food independently. Therefore, recommend maintenance of mechanical soft bite-sized solids and thin liquids; advance to regular solids per pt request. No indication for skilled dysphagia tx at this time. Pt would benefit from speech tx 3-5x/week to improve intelligibility and cognition. - Provider License Number: [id number] Occupational Therapy - Arousal/Attention/Orientation Patient Orientation: Person, Place, Time, Appropriate to Age, Appropriate to Situation - ADL/IADL Self Feeding: Minimal Assistance Grooming: Minimal Assistance - Assessment/Plan Assessment: Dustin Lina presents with 1.) mild-moderate dysarthria characterized by L facial weakness with impaired articulatory precision and mildly reduced respiration for phonation negatively impacting intelligibility; and 2.) mild cognitive deficits characterized by impaired short-term recall and linguistic thought organization. Pt presents with mild R facial droop, though oropharyngeal swallow appears WFL; he utilizes compensatory strategies independently; although pt can tolerate regular solids, he requested to remain on bite-sized secondary to R hand weakness negatively impacting his ablity to cut his food independently. Therefore, recommend maintenance of mechanical soft bite-sized solids and thin liquids; advance to regular solids per pt request. No indication for skilled dysphagia tx at this time. Pt would benefit from speech tx 3-5x/week to improve intelligibility and cognition. - Provider Therapist: mendez flores Speech Therapy - Consult Information Patient on Program: Yes Medical Diagnosis: CVA Treatment Diagnosis: - mild-moderate dysarthria. - mild cognitive deficits - Assessment Memory Impairment: Mild Speech/Articulation Impairment: Moderate Comment: mild-moderate - Plan Assessment: Dustin Mills presents with 1.) mild-moderate dysarthria characterized by L facial weakness with impaired articulatory precision and mildly reduced respiration for phonation negatively impacting intelligibility; and 2.) mild cognitive deficits characterized by impaired short-term recall and linguistic thought organization. Pt presents with mild R facial droop, though oropharyngeal swallow appears WFL; he utilizes compensatory strategies independently; although pt can tolerate regular solids, he requested to remain on bite-sized secondary to R hand weakness negatively impacting his ablity to cut his food independently. Therefore, recommend maintenance of mechanical soft bite-sized solids and thin liquids; advance to regular solids per pt request. No indication for skilled dysphagia tx at this time. Pt would benefit from speech tx 3-5x/week to improve intelligibility and cognition. Plan: Continue Speech/Language Therapy Frequency: 3-5 times per week Duration: 1 week Goals/Timeframe: Please see IE completed 10/01/16 for tx goals/POC Recommendations: ST 3-5x/week - Provider Therapist: Norma Swain License Number: [id number] Recreational Therapy - Participation Participation: Participates in Individual and/or Group Sessions - Attendance Attendance: 3-5 times per week - Activities Leisure Activities: Cards and Games - Socialization Level of Socialization: Initiates/interacts freely with care givers and peer - Diversional Time Diversional Time: television, reading - Assessment Assessment/Plan: Dustin Mills presents with 1.) mild-moderate dysarthria characterized by L facial weakness with impaired articulatory precision and mildly reduced respiration for phonation negatively impacting intelligibility; and 2.) mild cognitive deficits characterized by impaired short-term recall and linguistic thought organization. Pt presents with mild R facial droop, though oropharyngeal swallow appears WFL; he utilizes compensatory strategies independently; although pt can tolerate regular solids, he requested to remain on bite-sized secondary to R hand weakness negatively impacting his ablity to cut his food independently. Therefore, recommend maintenance of mechanical soft bite-sized solids and thin liquids; advance to regular solids per pt request. No indication for skilled dysphagia tx at this time. Pt would benefit from speech tx 3-5x/week to improve intelligibility and cognition. - Provider Therapist: Roslyn Jacobson, INTERFACE DESIGNER #[id number] Nutrition - Current Diet Current Diet/ Supplement/ Feedings: Heart healthy Advance bite size diet - Appetite Percent Meal Consumed: 50-74% - Assessment/Goals/Time Frame Assessment/Goals/Time Frame: Pt at moderate nutritional risk. goals: po intake of meals >75% with tolerance upon follow up. Follow-up due on 10/08/2016 - Provider Provider: Shara Seo RD Case Management - Discharge Plan Discharge Plan: Home with significant other/family Rehabilitation Plan - Treatment Plan Treatment Plan: Physical Therapy, Occupational Therapy, Speech, Dietary, Patient /Family Education - Recommendation Recommendation: Physical Therapy, Occupational Therapy, Speech, Dietary, Patient /Family Education - Discharge Plan Discharge to: Home
--- NOTE | 2016-10-02 12:35 | CP.PCM.PN ---
Subjective - Date & Time of Evaluation Date of Evaluation: 10/02/16 Time of Evaluation: 11:00 - Subjective Subjective: no acute complaint of any pain Objective - Vital Signs/Intake and Output Vital Signs (last 24 hours): Temp Pulse Resp BP Pulse Ox 97.6 F 58 L 21 137/57 L 98 10/02/16 12:15 10/02/16 12:15 10/02/16 12:15 10/02/16 12:15 10/02/16 08:36 - Medications Medications: Current Medications Aspirin (Aspirin) 325 mg PO DAILY [facility] Last Admin: 10/02/16 08:52 Dose: 325 mg Atorvastatin Calcium (Lipitor) 20 mg PO DAILY@2100 [facility] Last Admin: 10/01/16 21:17 Dose: 20 mg Carvedilol (Coreg) 6.25 mg PO HS [facility] Last Admin: 10/01/16 21:19 Dose: 6.25 mg Clopidogrel Bisulfate (Plavix) 75 mg PO DAILY [facility] Last Admin: 10/02/16 08:51 Dose: 75 mg Dexamethasone (Decadron) 2 mg PO DAILY [facility] Last Admin: 10/02/16 08:52 Dose: 2 mg Dorzolamide HCl (Trusopt) 1 drop OU BID [facility] Last Admin: 10/02/16 08:51 Dose: 1 drop Enoxaparin Sodium (Lovenox) 90 mg SC Q12 [facility] PRN Reason: Protocol Last Admin: 10/02/16 08:50 Dose: 90 mg Pantoprazole Sodium (Protonix Ec Tab) 40 mg PO DAILY [facility] Sertraline HCl (Zoloft) 25 mg PO DAILY [facility] Last Admin: 10/02/16 08:52 Dose: 25 mg Timolol Maleate (Timoptic 0.5% Ophth Soln) 1 drop OU BID [facility] Last Admin: 10/02/16 08:57 Dose: 1 drop - Labs Labs: 10/01/16 07:07 10/01/16 07:07 - Head Exam Head Exam: ATRAUMATIC, NORMAL INSPECTION, NORMOCEPHALIC - Eye Exam Eye Exam: EOMI, Normal appearance, PERRL Pupil Exam: NORMAL ACCOMODATION - ENT Exam ENT Exam: Mucous Membranes Moist, Normal Exam - Respiratory Exam Respiratory Exam: NORMAL BREATHING PATTERN - Cardiovascular Exam Cardiovascular Exam: REGULAR RHYTHM - GI/Abdominal Exam GI & Abdominal Exam: Normal Bowel Sounds - Rectal Exam Rectal Exam: NORMAL INSPECTION - Exam External exam: NORMAL EXTERNAL EXAM - Extremities Exam Extremities Exam: Normal Capillary Refill, Normal Inspection - Back Exam Back Exam: NORMAL INSPECTION - Neurological Exam Neurological Exam: Alert, Awake Neuro motor strength exam: Left Upper Extremity: 4, Right Upper Extremity: 2/1, Left Lower Extremity: 4, Right Lower Extremity: 2/1 - Psychiatric Exam Psychiatric exam: Normal Affect, Normal Mood - Skin Skin Exam: Dry, Intact, Normal Color Assessment and Plan (1) Cerebral edema Status: Acute (2) Cerebrovascular accident Assessment & Plan: plan for physical , occupational, recreational therapy no Dc date status post team conference e stim Status: Acute (3) Connective tissue disease Status: Acute (4) Essential (primary) hypertension Status: Acute (5) Hypertension Status: Acute (6) TIA (transient ischemic attack) Status: Acute (7) Near syncope Status: Acute
--- NOTE | 2016-10-03 08:48 | CP.PCM.PN ---
Subjective - Date & Time of Evaluation Date of Evaluation: 10/03/16 Time of Evaluation: 08:49 - Subjective Subjective: continues to improve clinically speech and arm weakness improved c/o rash of back Objective - Vital Signs/Intake and Output Vital Signs (last 24 hours): Temp Pulse Resp BP Pulse Ox 97.7 F 66 20 160/68 H 100 10/02/16 20:34 10/02/16 22:03 10/02/16 20:34 10/02/16 22:03 10/02/16 20:34 - Medications Medications: Current Medications Aspirin (Aspirin) 325 mg PO DAILY [facility] Last Admin: 10/02/16 08:52 Dose: 325 mg Atorvastatin Calcium (Lipitor) 20 mg PO DAILY@2100 [facility] Last Admin: 10/02/16 22:03 Dose: 20 mg Carvedilol (Coreg) 6.25 mg PO [facility] Last Admin: 10/02/16 22:03 Dose: 6.25 mg Clopidogrel Bisulfate (Plavix) 75 mg PO DAILY [facility] Last Admin: 10/02/16 08:51 Dose: 75 mg Dexamethasone (Decadron) 2 mg PO DAILY [facility] Last Admin: 10/02/16 08:52 Dose: 2 mg Dorzolamide HCl (Trusopt) 1 drop OU BID [facility] Last Admin: 10/02/16 17:26 Dose: 1 drop Enoxaparin Sodium (Lovenox) 90 mg SC Q12 [facility] PRN Reason: Protocol Last Admin: 10/02/16 22:02 Dose: 90 mg Pantoprazole Sodium (Protonix Ec Tab) 40 mg PO DAILY [facility] Last Admin: 10/02/16 10:00 Dose: 40 mg Sertraline HCl (Zoloft) 25 mg PO [facility] Timolol Maleate (Timoptic 0.5% Oph Soln) 1 drop OU BID [facility] Last Admin: 10/02/16 17:27 Dose: 1 drop - Labs Labs: 10/01/16 07:07 10/01/16 07:07 - Constitutional Appears: Well - Head Exam Head Exam: ATRAUMATIC, NORMAL INSPECTION, NORMOCEPHALIC - Eye Exam Eye Exam: EOMI, Normal appearance, PERRL Pupil Exam: NORMAL ACCOMODATION, PERRL - ENT Exam ENT Exam: Mucous Membranes Moist, Normal Exam - Neck Exam Neck Exam: Full ROM, Normal Inspection. absent: Lymphadenopathy - Respiratory Exam Respiratory Exam: Clear to Ausculation Bilateral, NORMAL BREATHING PATTERN - Cardiovascular Exam Cardiovascular Exam: REGULAR RHYTHM, +S1, +S2. absent: Murmur - GI/Abdominal Exam GI & Abdominal Exam: Soft, Normal Bowel Sounds. absent: Tenderness - Rectal Exam Rectal Exam: NORMAL INSPECTION - Extremities Exam Extremities Exam: Full ROM, Normal Capillary Refill, Normal Inspection. absent : Joint Swelling, Pedal Edema - Back Exam Back Exam: NORMAL INSPECTION - Neurological Exam Neurological Exam: Abnormal Gait, Alert, Awake, CN II-XII Intact, Oriented x3 - Psychiatric Exam Psychiatric exam: Normal Affect, Normal Mood - Skin Skin Exam: Dry, Intact, Normal Color, Rash, Warm Assessment and Plan - Assessment and Plan (Free Text) Assessment: cva htn skin rash Plan: d/c lovenox and decadron lotrisone crm for rash
[2016-10-03] MEDS: Pantoprazole 40 mg EC Tab PO SCH (08:52)
[2016-10-03] MEDS: Dorzolamide 2% Ophth Soln OU SCH ×2 (08:57→17:14)
--- NOTE | 2016-10-03 18:51 | PN ---
DATE: 10/03/2016 NEUROLOGICAL PROBLEM: Pontine infarct manifesting with ataxic hemiparesis. PHYSICAL EXAMINATION: VITAL SIGNS: Blood pressure 143/68, mean arterial pressure 93, respiratory rate 16, temperature 97.5 , pulse rate is 65, regular. NEUROLOGIC: The patient is more awake, alert, oriented. The patient was working on word puzzles by himself using his pen in the right hand. The patient's speech is slightly dysarthric, which is prese nt as before. Initially the patient did have some sleepiness is related to Zoloft which is unchanged to nighttime at present. The patient has been tolerating well with Zoloft. No sign of depression. No crying spell. Examination of right side hyperreflexic, which is unchanged. RECOMMENDATIONS: The patient should continue the same and active physical therapy. The patient will be followed closely with you. Manny Thomas MD cc: [id number] TT: 10/03/2016 18:50:48 Confirmation # [id number] Dictation # [id number] aliyah
[2016-10-04] MEDS: Pantoprazole 40 mg EC Tab PO SCH (08:44)
[2016-10-04] MEDS: Dorzolamide 2% Ophth Soln OU SCH ×2 (09:07→16:44)
--- NOTE | 2016-10-04 13:03 | CP.PCM.PN ---
Subjective - Date & Time of Evaluation Date of Evaluation: 10/04/16 Time of Evaluation: 11:00 - Subjective Subjective: no acute complaints of pain Objective - Vital Signs/Intake and Output Vital Signs (last 24 hours): Temp Pulse Resp BP Pulse Ox 98 F 82 20 150/70 98 10/04/16 10:00 10/04/16 10:00 10/04/16 10:00 10/04/16 10:00 10/04/16 10:00 - Medications Medications: Current Medications Aspirin (Aspirin) 325 mg PO DAILY [facility] Last Admin: 10/04/16 09:06 Dose: 325 mg Atorvastatin Calcium (Lipitor) 20 mg PO DAILY@2100 [facility] Last Admin: 10/03/16 21:10 Dose: 20 mg Carvedilol (Coreg) 6.25 mg PO [facility] Last Admin: 10/03/16 21:10 Dose: 6.25 mg Clopidogrel Bisulfate (Plavix) 75 mg PO DAILY [facility] Last Admin: 10/04/16 08:44 Dose: 75 mg Clotrimazole (Lotrimin 1% Cream) 1 applic TOP BID [facility] Last Admin: 10/04/16 08:49 Dose: 1 applic Dorzolamide HCl (Trusopt) 1 drop OU BID [facility] Last Admin: 10/04/16 09:07 Dose: 1 drop Pantoprazole Sodium (Protonix Ec Tab) 40 mg PO DAILY [facility] Last Admin: 10/04/16 08:44 Dose: 40 mg Sertraline HCl (Zoloft) 25 mg PO [facility] Last Admin: 10/03/16 21:09 Dose: 25 mg Timolol Maleate (Timoptic 0.5% Ophth Soln) 1 drop OU BID [facility] Last Admin: 10/04/16 09:06 Dose: 1 drop - Labs Labs: 10/01/16 07:07 10/01/16 07:07 - Head Exam Head Exam: ATRAUMATIC, NORMAL INSPECTION, NORMOCEPHALIC - Eye Exam Eye Exam: EOMI, Normal appearance, PERRL Pupil Exam: NORMAL ACCOMODATION - ENT Exam ENT Exam: Mucous Membranes Moist, Normal Exam - Respiratory Exam Respiratory Exam: NORMAL BREATHING PATTERN - Cardiovascular Exam Cardiovascular Exam: REGULAR RHYTHM - GI/Abdominal Exam GI & Abdominal Exam: Normal Bowel Sounds - Rectal Exam Rectal Exam: NORMAL INSPECTION - Exam External exam: NORMAL EXTERNAL EXAM - Extremities Exam Extremities Exam: Normal Capillary Refill, Normal Inspection - Neurological Exam Neurological Exam: Alert, Awake Neuro motor strength exam: Left Upper Extremity: 3, Right Upper Extremity: 2/1, Left Lower Extremity: 3, Right Lower Extremity: 2/1 - Psychiatric Exam Psychiatric exam: Normal Affect, Normal Mood - Skin Skin Exam: Dry, Normal Color Assessment and Plan (1) Cerebral edema Status: Acute (2) Cerebrovascular accident Assessment & Plan: physical, occupational , recreational therapy monitor vitals and skin Status: Acute (3) Connective tissue disease Status: Acute (4) Essential (primary) hypertension Status: Acute (5) Hypertension Status: Acute (6) TIA (transient ischemic attack) Status: Acute (7) Near syncope Status: Acute
--- NOTE | 2016-10-04 13:48 | CP.PCM.PN ---
Subjective - Date & Time of Evaluation Date of Evaluation: 10/04/16 Time of Evaluation: 13:48 - Subjective Subjective: continues to improve clinically neuro deficits resolving Objective - Vital Signs/Intake and Output Vital Signs (last 24 hours): Temp Pulse Resp BP Pulse Ox 98 F 82 20 150/70 98 10/04/16 10:00 10/04/16 10:00 10/04/16 10:00 10/04/16 10:00 10/04/16 10:00 - Medications Medications: Current Medications Aspirin (Aspirin) 325 mg PO DAILY [facility] Last Admin: 10/04/16 09:06 Dose: 325 mg Atorvastatin Calcium (Lipitor) 20 mg PO DAILY@2100 [facility] Last Admin: 10/03/16 21:10 Dose: 20 mg Carvedilol (Coreg) 6.25 mg PO [facility] Last Admin: 10/03/16 21:10 Dose: 6.25 mg Clopidogrel Bisulfate (Plavix) 75 mg PO DAILY [facility] Last Admin: 10/04/16 08:44 Dose: 75 mg Clotrimazole (Lotrimin 1% Cream) 1 applic TOP BID [facility] Last Admin: 10/04/16 08:49 Dose: 1 applic Dorzolamide HCl (Trusopt) 1 drop OU BID [facility] Last Admin: 10/04/16 09:07 Dose: 1 drop Pantoprazole Sodium (Protonix Ec Tab) 40 mg PO DAILY [facility] Last Admin: 10/04/16 08:44 Dose: 40 mg Sertraline HCl (Zoloft) 25 mg PO [facility] Last Admin: 10/03/16 21:09 Dose: 25 mg Timolol Maleate (Timoptic 0.5% Oph Soln) 1 drop OU BID [facility] Last Admin: 10/04/16 09:06 Dose: 1 drop - Labs Labs: 10/01/16 07:07 10/01/16 07:07 - Constitutional Appears: Well - Head Exam Head Exam: ATRAUMATIC, NORMAL INSPECTION, NORMOCEPHALIC - Eye Exam Eye Exam: EOMI, Normal appearance, PERRL Pupil Exam: NORMAL ACCOMODATION, PERRL - ENT Exam ENT Exam: Mucous Membranes Moist, Normal Exam - Neck Exam Neck Exam: Full ROM, Normal Inspection. absent: Lymphadenopathy - Respiratory Exam Respiratory Exam: Clear to Ausculation Bilateral, NORMAL BREATHING PATTERN - Cardiovascular Exam Cardiovascular Exam: REGULAR RHYTHM, +S1, +S2. absent: Murmur - GI/Abdominal Exam GI & Abdominal Exam: Soft, Normal Bowel Sounds. absent: Tenderness - Rectal Exam Rectal Exam: NORMAL INSPECTION - Extremities Exam Extremities Exam: Full ROM, Normal Capillary Refill, Normal Inspection. absent : Joint Swelling, Pedal Edema - Back Exam Back Exam: NORMAL INSPECTION - Neurological Exam Neurological Exam: Alert, Awake, CN II-XII Intact, Normal Gait, Oriented x3 - Psychiatric Exam Psychiatric exam: Normal Affect, Normal Mood - Skin Skin Exam: Dry, Intact, Normal Color, Warm Assessment and Plan - Assessment and Plan (Free Text) Assessment: cva htn hyperlipidemia Plan: continue aggressive pt/ot
--- NOTE | 2016-10-05 08:32 | CP.PCM.PN ---
Subjective - Date & Time of Evaluation Date of Evaluation: 10/05/16 Time of Evaluation: 08:32 - Subjective Subjective: HAD SOME URINARY INCONTENENCE YESTERDAY NEURO DEFICITS IMPROVING Objective - Vital Signs/Intake and Output Vital Signs (last 24 hours): Temp Pulse Resp BP Pulse Ox 98.1 F 69 20 145/59 L 98 10/04/16 21:10 10/04/16 21:30 10/04/16 21:10 10/04/16 21:30 10/04/16 21:10 - Medications Medications: Current Medications Aspirin (Aspirin) 325 mg PO DAILY [facility] Last Admin: 10/04/16 09:06 Dose: 325 mg Atorvastatin Calcium (Lipitor) 20 mg PO DAILY@2100 [facility] Last Admin: 10/04/16 21:30 Dose: 20 mg Carvedilol (Coreg) 6.25 mg PO [facility] Last Admin: 10/04/16 21:30 Dose: 6.25 mg Clopidogrel Bisulfate (Plavix) 75 mg PO DAILY [facility] Last Admin: 10/04/16 08:44 Dose: 75 mg Clotrimazole (Lotrimin 1% Cream) 1 applic TOP BID [facility] Last Admin: 10/04/16 16:44 Dose: 1 applic Dorzolamide HCl (Trusopt) 1 drop OU BID [facility] Last Admin: 10/04/16 16:44 Dose: 1 drop Pantoprazole Sodium (Protonix Ec Tab) 40 mg PO DAILY [facility] Last Admin: 10/04/16 08:44 Dose: 40 mg Sertraline HCl (Zoloft) 25 mg PO [facility] Last Admin: 10/04/16 21:30 Dose: 25 mg Timolol Maleate (Timoptic 0.5% Oph Soln) 1 drop OU BID [facility] Last Admin: 10/04/16 16:44 Dose: 1 drop - Labs Labs: 10/01/16 07:07 10/01/16 07:07 - Constitutional Appears: Well - Head Exam Head Exam: ATRAUMATIC, NORMAL INSPECTION, NORMOCEPHALIC - Eye Exam Eye Exam: EOMI, Normal appearance, PERRL Pupil Exam: NORMAL ACCOMODATION, PERRL - ENT Exam ENT Exam: Mucous Membranes Moist, Normal Exam - Neck Exam Neck Exam: Full ROM, Normal Inspection. absent: Lymphadenopathy - Respiratory Exam Respiratory Exam: Clear to Ausculation Bilateral, NORMAL BREATHING PATTERN - Cardiovascular Exam Cardiovascular Exam: REGULAR RHYTHM, +S1, +S2. absent: Murmur - GI/Abdominal Exam GI & Abdominal Exam: Soft, Normal Bowel Sounds. absent: Tenderness - Rectal Exam Rectal Exam: NORMAL INSPECTION - Extremities Exam Extremities Exam: Full ROM, Normal Capillary Refill, Normal Inspection. absent : Joint Swelling, Pedal Edema - Back Exam Back Exam: NORMAL INSPECTION - Neurological Exam Neurological Exam: Alert, Awake, CN II-XII Intact, Normal Gait, Oriented x3 - Psychiatric Exam Psychiatric exam: Normal Affect, Normal Mood - Skin Skin Exam: Dry, Intact, Normal Color, Warm Assessment and Plan - Assessment and Plan (Free Text) Assessment: CVA URINARY INCONTENENCE[HX OF PROSTATE CANCER IN THE PAST] Plan: BLADDER TRAINING UROLOGY EVAL IF WORSE
[2016-10-05] MEDS: Dorzolamide 2% Ophth Soln OU SCH ×2 (08:47→17:03)
[2016-10-05] MEDS: Pantoprazole 40 mg EC Tab PO SCH (09:00)
[2016-10-06] MEDS: Dorzolamide 2% Ophth Soln OU SCH ×2 (08:54→17:19)
[2016-10-06] MEDS: Pantoprazole 40 mg EC Tab PO SCH (08:54)
--- NOTE | 2016-10-06 11:25 | CP.PCM.PN ---
Subjective - Date & Time of Evaluation Date of Evaluation: 10/06/16 Time of Evaluation: 11:25 - Subjective Subjective: FEELS BETTER NO COMPLAINTS Objective - Vital Signs/Intake and Output Vital Signs (last 24 hours): Temp Pulse Resp BP Pulse Ox 96.6 F L 71 20 139/58 L 99 10/06/16 08:18 10/06/16 08:18 10/06/16 08:18 10/06/16 08:18 10/06/16 08:18 - Medications Medications: Current Medications Aspirin (Aspirin) 325 mg PO DAILY REPLACED BY [facility] Last Admin: 10/06/16 08:53 Dose: 325 mg Atorvastatin Calcium (Lipitor) 20 mg PO DAILY@2100 REPLACED BY [facility] Last Admin: 10/05/16 21:05 Dose: 20 mg Carvedilol (Coreg) 6.25 mg PO [facility] Last Admin: 10/05/16 21:05 Dose: 6.25 mg Clopidogrel Bisulfate (Plavix) 75 mg PO DAILY REPLACED BY [facility] Last Admin: 10/06/16 08:54 Dose: 75 mg Clotrimazole (Lotrimin 1% Cream) 1 applic TOP BID REPLACED BY [facility] Last Admin: 10/06/16 08:53 Dose: 1 applic Dorzolamide HCl (Trusopt) 1 drop OU BID REPLACED BY [facility] Last Admin: 10/06/16 08:54 Dose: 1 drop Pantoprazole Sodium (Protonix Ec Tab) 40 mg PO DAILY REPLACED BY [facility] Last Admin: 10/06/16 08:54 Dose: 40 mg Sertraline HCl (Zoloft) 25 mg PO [facility] Last Admin: 10/05/16 21:05 Dose: 25 mg Timolol Maleate (Timoptic 0.5% Oph Soln) 1 drop OU BID REPLACED BY [facility] Last Admin: 10/06/16 08:54 Dose: 1 drop - Labs Labs: 10/01/16 07:07 10/01/16 07:07 - Constitutional Appears: Well - Head Exam Head Exam: ATRAUMATIC, NORMAL INSPECTION, NORMOCEPHALIC - Eye Exam Eye Exam: EOMI, Normal appearance, PERRL Pupil Exam: NORMAL ACCOMODATION, PERRL - ENT Exam ENT Exam: Mucous Membranes Moist, Normal Exam - Neck Exam Neck Exam: Full ROM, Normal Inspection. absent: Lymphadenopathy - Respiratory Exam Respiratory Exam: Clear to Ausculation Bilateral, NORMAL BREATHING PATTERN - Cardiovascular Exam Cardiovascular Exam: REGULAR RHYTHM, +S1, +S2. absent: Murmur - GI/Abdominal Exam GI & Abdominal Exam: Soft, Normal Bowel Sounds. absent: Tenderness - Rectal Exam Rectal Exam: NORMAL INSPECTION - Extremities Exam Extremities Exam: Full ROM, Normal Capillary Refill, Normal Inspection. absent : Joint Swelling, Pedal Edema - Back Exam Back Exam: NORMAL INSPECTION - Neurological Exam Neurological Exam: Alert, Awake, CN II-XII Intact, Normal Gait, Oriented x3 - Psychiatric Exam Psychiatric exam: Normal Affect, Normal Mood - Skin Skin Exam: Dry, Intact, Normal Color, Warm Assessment and Plan - Assessment and Plan (Free Text) Assessment: CVA Plan: CONTINUE SAME RX
[2016-10-07] MEDS: Dorzolamide 2% Ophth Soln OU SCH ×2 (08:24→16:29)
[2016-10-07] MEDS: Pantoprazole 40 mg EC Tab PO SCH (08:28)
--- NOTE | 2016-10-07 09:35 | CP.PCM.PN ---
Subjective - Date & Time of Evaluation Date of Evaluation: 10/07/16 Time of Evaluation: 09:35 - Subjective Subjective: AMBULATING HALLWAY WITH ASSISTANCE GAIT STILL UNSTEADY Objective - Vital Signs/Intake and Output Vital Signs (last 24 hours): Temp Pulse Resp BP Pulse Ox 97.9 F 72 20 139/73 98 10/07/16 08:14 10/07/16 08:14 10/07/16 08:14 10/07/16 08:14 10/07/16 08:14 - Medications Medications: Current Medications Aspirin (Aspirin) 325 mg PO DAILY [facility] Last Admin: 10/07/16 08:27 Dose: 325 mg Atorvastatin Calcium (Lipitor) 20 mg PO DAILY@2100 [facility] Last Admin: 10/06/16 21:21 Dose: 20 mg Carvedilol (Coreg) 6.25 mg PO [facility] Last Admin: 10/06/16 21:22 Dose: 6.25 mg Clopidogrel Bisulfate (Plavix) 75 mg PO DAILY [facility] Last Admin: 10/07/16 08:28 Dose: 75 mg Clotrimazole (Lotrimin 1% Cream) 1 applic TOP BID [facility] Last Admin: 10/07/16 08:28 Dose: 1 applic Dorzolamide HCl (Trusopt) 1 drop OU BID [facility] Last Admin: 10/07/16 08:24 Dose: 1 drop Pantoprazole Sodium (Protonix Ec Tab) 40 mg PO DAILY [facility] Last Admin: 10/07/16 08:28 Dose: 40 mg Sertraline HCl (Zoloft) 25 mg PO [facility] Last Admin: 10/06/16 21:22 Dose: 25 mg Timolol Maleate (Timoptic 0.5% Oph Soln) 1 drop OU BID [facility] Last Admin: 10/07/16 08:24 Dose: 1 drop - Labs Labs: 10/01/16 07:07 10/01/16 07:07 - Constitutional Appears: No Acute Distress - Head Exam Head Exam: ATRAUMATIC, NORMAL INSPECTION, NORMOCEPHALIC - Eye Exam Eye Exam: EOMI, Normal appearance, PERRL Pupil Exam: NORMAL ACCOMODATION, PERRL - ENT Exam ENT Exam: Mucous Membranes Moist, Normal Exam - Neck Exam Neck Exam: Full ROM, Normal Inspection. absent: Lymphadenopathy - Respiratory Exam Respiratory Exam: Clear to Ausculation Bilateral, NORMAL BREATHING PATTERN - Cardiovascular Exam Cardiovascular Exam: REGULAR RHYTHM, +S1, +S2. absent: Murmur - GI/Abdominal Exam GI & Abdominal Exam: Soft, Normal Bowel Sounds. absent: Tenderness - Rectal Exam Rectal Exam: NORMAL INSPECTION - Extremities Exam Extremities Exam: Full ROM, Normal Capillary Refill, Normal Inspection. absent : Joint Swelling, Pedal Edema - Back Exam Back Exam: NORMAL INSPECTION - Neurological Exam Neurological Exam: Abnormal Gait, Alert, Awake, CN II-XII Intact, Oriented x3 - Psychiatric Exam Psychiatric exam: Normal Affect, Normal Mood - Skin Skin Exam: Dry, Intact, Normal Color, Warm Assessment and Plan - Assessment and Plan (Free Text) Assessment: CVA HTN HYPERLIPIDEMIA Plan: CONTINUE SAME RX REPEAT LABS IN AM
[2016-10-08 07:07] LABS: HEMATOCRIT 26.1 % (35.0-51.0); MEAN CELL VOLUME 87.8 fl (80.0-94.0); MEAN CORPUSCULAR HEMOGLOBIN 30.1 pg (27.0-31.0); MEAN CORPUSCULAR HGB CONC 34.3 g/dL (33.0-37.0); RED CELL DISTRIBUTION WIDTH 14.4 % (11.5-14.5); WHITE BLOOD COUNT 5.1 K/uL (4.8-10.8)
[2016-10-08 07:25] LABS: BLOOD UREA NITROGEN 30 mg/dl (9-20); CALCIUM 8.3 mg/dL (8.4-10.2); CARBON DIOXIDE 24 mmol/L (22-30); CHLORIDE 106 mmol/L (98-107); GFR AFRICAN-AMERICAN > 60; GLUCOSE,RANDOM 91 mg/dL (75-110); POTASSIUM 4.7 MMOL/L (3.6-5.0); SODIUM 141 mmol/l (132-148)
[2016-10-08] MEDS: Dorzolamide 2% Ophth Soln OU SCH ×2 (08:38→16:33)
[2016-10-08] MEDS: Pantoprazole 40 mg EC Tab PO SCH (08:39)
--- NOTE | 2016-10-08 15:16 | CP.PCM.PN ---
Subjective - Date & Time of Evaluation Date of Evaluation: 10/06/16 Time of Evaluation: 14:30 - Subjective Subjective: no acute complaints of any pain Objective - Vital Signs/Intake and Output Vital Signs (last 24 hours): Temp Pulse Resp BP Pulse Ox 98.1 F 65 20 122/63 99 10/08/16 07:52 10/08/16 07:52 10/08/16 07:52 10/08/16 07:52 10/08/16 07:52 - Medications Medications: Current Medications Aspirin (Aspirin) 325 mg PO DAILY [facility] Last Admin: 10/08/16 08:38 Dose: 325 mg Atorvastatin Calcium (Lipitor) 20 mg PO DAILY@2100 [facility] Last Admin: 10/07/16 21:14 Dose: 20 mg Carvedilol (Coreg) 6.25 mg PO [facility] Last Admin: 10/07/16 21:14 Dose: 6.25 mg Clopidogrel Bisulfate (Plavix) 75 mg PO DAILY [facility] Last Admin: 10/08/16 08:39 Dose: 75 mg Clotrimazole (Lotrimin 1% Cream) 1 applic TOP BID [facility] Last Admin: 10/08/16 08:38 Dose: 1 applic Dorzolamide HCl (Trusopt) 1 drop OU BID [facility] Last Admin: 10/08/16 08:38 Dose: 1 drop Ferrous Sulfate (Feosol) 325 mg PO BID [facility] Pantoprazole Sodium (Protonix Ec Tab) 40 mg PO DAILY [facility] Last Admin: 10/08/16 08:39 Dose: 40 mg Sertraline HCl (Zoloft) 25 mg PO [facility] Last Admin: 10/07/16 21:14 Dose: 25 mg Timolol Maleate (Timoptic 0.5% Ophth Soln) 1 drop OU BID [facility] Last Admin: 10/08/16 08:38 Dose: 1 drop - Labs Labs: 10/08/16 06:52 10/08/16 06:52 - Head Exam Head Exam: ATRAUMATIC, NORMAL INSPECTION, NORMOCEPHALIC - Eye Exam Eye Exam: EOMI, Normal appearance, PERRL Pupil Exam: NORMAL ACCOMODATION - ENT Exam ENT Exam: Mucous Membranes Moist, Normal Exam - Respiratory Exam Respiratory Exam: NORMAL BREATHING PATTERN - Cardiovascular Exam Cardiovascular Exam: REGULAR RHYTHM - GI/Abdominal Exam GI & Abdominal Exam: Normal Bowel Sounds - Rectal Exam Rectal Exam: NORMAL INSPECTION - Exam External exam: NORMAL EXTERNAL EXAM - Extremities Exam Extremities Exam: Normal Capillary Refill, Normal Inspection - Back Exam Back Exam: NORMAL INSPECTION - Neurological Exam Neurological Exam: Alert, Awake Neuro motor strength exam: Left Upper Extremity: 4, Right Upper Extremity: 3, Left Lower Extremity: 4, Right Lower Extremity: 3 - Psychiatric Exam Psychiatric exam: Normal Affect, Normal Mood - Skin Skin Exam: Dry, Intact Assessment and Plan (1) Cerebral edema Status: Acute (2) Cerebrovascular accident Assessment & Plan: physical, occupational therapy . receational and speech therapy Status: Acute (3) Connective tissue disease Status: Acute (4) Essential (primary) hypertension Status: Acute (5) Hypertension Status: Acute (6) TIA (transient ischemic attack) Status: Acute (7) Near syncope Status: Acute
--- NOTE | 2016-10-08 15:19 | CP.PCM.PN ---
Subjective - Date & Time of Evaluation Date of Evaluation: 10/08/16 Time of Evaluation: 10:30 - Subjective Subjective: no acute neck or back pain Objective - Vital Signs/Intake and Output Vital Signs (last 24 hours): Temp Pulse Resp BP Pulse Ox 98.1 F 65 20 122/63 99 10/08/16 07:52 10/08/16 07:52 10/08/16 07:52 10/08/16 07:52 10/08/16 07:52 - Medications Medications: Current Medications Aspirin (Aspirin) 325 mg PO DAILY [facility] Last Admin: 10/08/16 08:38 Dose: 325 mg Atorvastatin Calcium (Lipitor) 20 mg PO DAILY@2100 [facility] Last Admin: 10/07/16 21:14 Dose: 20 mg Carvedilol (Coreg) 6.25 mg PO [facility] Last Admin: 10/07/16 21:14 Dose: 6.25 mg Clopidogrel Bisulfate (Plavix) 75 mg PO DAILY [facility] Last Admin: 10/08/16 08:39 Dose: 75 mg Clotrimazole (Lotrimin 1% Cream) 1 applic TOP BID [facility] Last Admin: 10/08/16 08:38 Dose: 1 applic Dorzolamide HCl (Trusopt) 1 drop OU BID [facility] Last Admin: 10/08/16 08:38 Dose: 1 drop Ferrous Sulfate (Feosol) 325 mg PO BID [facility] Pantoprazole Sodium (Protonix Ec Tab) 40 mg PO DAILY [facility] Last Admin: 10/08/16 08:39 Dose: 40 mg Sertraline HCl (Zoloft) 25 mg PO [facility] Last Admin: 10/07/16 21:14 Dose: 25 mg Timolol Maleate (Timoptic 0.5% Ophth Soln) 1 drop OU BID [facility] Last Admin: 10/08/16 08:38 Dose: 1 drop - Labs Labs: 10/08/16 06:52 10/08/16 06:52 - Head Exam Head Exam: ATRAUMATIC, NORMAL INSPECTION, NORMOCEPHALIC - Eye Exam Eye Exam: EOMI, Normal appearance, PERRL Pupil Exam: NORMAL ACCOMODATION - ENT Exam ENT Exam: Mucous Membranes Moist, Normal Exam - Respiratory Exam Respiratory Exam: NORMAL BREATHING PATTERN - Cardiovascular Exam Cardiovascular Exam: REGULAR RHYTHM - Rectal Exam Rectal Exam: NORMAL INSPECTION - Exam External exam: NORMAL EXTERNAL EXAM - Extremities Exam Extremities Exam: Normal Capillary Refill - Back Exam Back Exam: NORMAL INSPECTION - Neurological Exam Neurological Exam: Alert, Awake Neuro motor strength exam: Left Upper Extremity: 4, Right Upper Extremity: 3, Left Lower Extremity: 4, Right Lower Extremity: 3 - Psychiatric Exam Psychiatric exam: Normal Affect, Normal Mood - Skin Skin Exam: Intact, Normal Color Assessment and Plan (1) Cerebral edema Status: Acute (2) Cerebrovascular accident Assessment & Plan: physical, ocuupational, receational therapy for team conference monitor skin, and vitals skin Status: Acute (3) Connective tissue disease Status: Acute (4) Essential (primary) hypertension Status: Acute (5) Hypertension Status: Acute (6) TIA (transient ischemic attack) Status: Acute (7) Near syncope Status: Acute
--- NOTE | 2016-10-09 08:13 | CP.PCM.PN ---
Subjective - Date & Time of Evaluation Date of Evaluation: 10/09/16 Time of Evaluation: 08:13 - Subjective Subjective: NO APPARENT DISTRESS Objective - Vital Signs/Intake and Output Vital Signs (last 24 hours): Temp Pulse Resp BP Pulse Ox 98.8 F 65 20 134/60 99 10/08/16 19:45 10/08/16 21:28 10/08/16 19:45 10/08/16 21:28 10/08/16 19:45 - Medications Medications: Current Medications Aspirin (Aspirin) 325 mg PO DAILY [facility] Last Admin: 10/08/16 08:38 Dose: 325 mg Atorvastatin Calcium (Lipitor) 20 mg PO DAILY@2100 [facility] Last Admin: 10/08/16 21:28 Dose: 20 mg Carvedilol (Coreg) 6.25 mg PO HS [facility] Last Admin: 10/08/16 21:28 Dose: 6.25 mg Clopidogrel Bisulfate (Plavix) 75 mg PO DAILY [facility] Last Admin: 10/08/16 08:39 Dose: 75 mg Clotrimazole (Lotrimin 1% Cream) 1 applic TOP BID [facility] Last Admin: 10/08/16 16:32 Dose: 1 applic Dorzolamide HCl (Trusopt) 1 drop OU BID [facility] Last Admin: 10/08/16 16:33 Dose: 1 drop Ferrous Sulfate (Feosol) 325 mg PO BID [facility] Last Admin: 10/08/16 16:33 Dose: 325 mg Pantoprazole Sodium (Protonix Ec Tab) 40 mg PO DAILY [facility] Last Admin: 10/08/16 08:39 Dose: 40 mg Sertraline HCl (Zoloft) 25 mg PO HS [facility] Last Admin: 10/08/16 21:28 Dose: 25 mg Timolol Maleate (Timoptic 0.5% Ophth Soln) 1 drop OU BID [facility] Last Admin: 10/08/16 16:33 Dose: 1 drop - Labs Labs: 10/08/16 06:52 10/08/16 06:52 - Constitutional Appears: Well - Head Exam Head Exam: ATRAUMATIC, NORMAL INSPECTION, NORMOCEPHALIC - Eye Exam Eye Exam: EOMI, Normal appearance, PERRL Pupil Exam: NORMAL ACCOMODATION, PERRL - ENT Exam ENT Exam: Mucous Membranes Moist, Normal Exam - Neck Exam Neck Exam: Full ROM, Normal Inspection. absent: Lymphadenopathy - Respiratory Exam Respiratory Exam: Clear to Ausculation Bilateral, NORMAL BREATHING PATTERN - Cardiovascular Exam Cardiovascular Exam: REGULAR RHYTHM, +S1, +S2. absent: Murmur - GI/Abdominal Exam GI & Abdominal Exam: Soft, Normal Bowel Sounds. absent: Tenderness - Rectal Exam Rectal Exam: NORMAL INSPECTION - Extremities Exam Extremities Exam: Full ROM, Normal Capillary Refill, Normal Inspection. absent : Joint Swelling, Pedal Edema - Back Exam Back Exam: NORMAL INSPECTION - Neurological Exam Neurological Exam: Alert, Awake, CN II-XII Intact, Normal Gait, Oriented x3 - Psychiatric Exam Psychiatric exam: Normal Affect, Normal Mood - Skin Skin Exam: Dry, Intact, Normal Color, Warm Assessment and Plan - Assessment and Plan (Free Text) Assessment: CVA ANEMIA--IRON DEFICIENCY Plan: FEOSOL BID CONTINUE OT/PT
[2016-10-09] MEDS: Pantoprazole 40 mg EC Tab PO SCH (09:04)
[2016-10-09] MEDS: Dorzolamide 2% Ophth Soln OU SCH ×2 (09:07→17:01)
[2016-10-09 09:21] LABS: RBC URINE < 1 /hpf (0-3); URINE BILIRUBIN NEGATIVE (NEGATIVE); URINE BLOOD NEGATIVE (NEGATIVE); URINE COLOR YELLOW (YELLOW); URINE GLUCOSE (UA) NEG (Normal); URINE KETONE NEGATIVE (NEGATIVE); URINE LEUKOCYTE ESTERASE NEG Leu/uL (Negative); URINE PROTEIN NEGATIVE (NEGATIVE); URINE UROBILINOGEN 0.2-1.0 mg/dL (0.2-1.0); WBC URINE < 1 /hpf (0-5)
--- NOTE | 2016-10-09 12:04 | PSY.TMCNF ---
Nursing - Vital Signs Vital Signs (Last 8 hours): Vital Signs 10/09/16 10:00 Temperature 97.5 F L Pulse Rate 62 Respiratory 20 Rate Blood Pressure 129/51 L O2 Sat by Pulse 99 Oximetry Pain: 0 - Precautions: Precautions: Fall Prevention, Aspiration - Medications/Other Issues Comment: Pt at moderate nutritional risk. goal: 1. po intake of meals >75% with tolerance upon follow up. Follow-up due on 10/08/2016 - Consults Comment: Dr. Calderon, Dr. Thomas - Toileting Toileting: Dependent - Bladder Management Bladder Pattern: Normal Voiding Method: Urinal - Bowel Management Frequency of Accidents: 0 - Transfers Transfers: Moderate Assistance - ADL's ADL's: Moderate Assistance - Patient/Family Teaching Comments: Care post CVA and safety precautions - Goals/Time Frame Comments: Per multidisciplinary careplan and goals Physical Therapy - Bed Mobility Bed Mobility: Verbal Cues, Contact Guard, Minimal Assistance - Transfers Sit to Stand: Verbal Cues, Contact Guard - Ambulation Level of Assistance: Verbal Cues, Contact Guard, Minimal Assistance Distance (ft.): 200 Assistive Devices: N/A Orthoses: Tap wrap, Dorsiflexion wrap - Stair Negotiation Stairs: Level of Assistance: Verbal Cues, Minimal Assistance Number of Stairs: 11 Stairs: Assistive Devices: Left Handrail - Standing Balance Static Stand: Contact Guard Assist Dynamic Stand: Contact Guard Assist, Minimal Assistance - Pain Pain (assessed during therapy session): 0 - Insight/Carryover Insight/Carryover: Good - Patient/Family Education Comment: safety, mobility, therapy schedule, POC, therapy goals - Assessment/Plan Assessment: The patient has done well in therapy this week, but may benefit from bracing to help improve his gait. Feel the brace will assist with the drop foot and may help minimize ataxia. Recommend further PT working on gait, transfers, bed mobility, stairs, strengthening, endurance, and balance. - Goals Timeframe: 2 weeks Goals: transfers supervision. gait 500' without an AD supervision- with toe off brace. up and down 1 flight with 1 rail supervision - Provider Therapist: Shaji Spence PT License Number: [id number] Occupational Therapy - Arousal/Attention/Orientation Patient Orientation: Person, Place, Time, Appropriate to Age, Appropriate to Situation - ADL/IADL Self Feeding: Supervision, Verbal Cues, Set-up Help, Contact Guard Grooming: Verbal Cues, Set-up Help, Contact Guard Bathing-Upper Extremity: Verbal Cues, Set-up Help, Contact Guard Bathing-Lower Extremity: Verbal Cues, Set-up Help, Contact Guard Dressing-Upper Extremity: Supervision, Verbal Cues, Set-up Help Dressing-Lower Extremity: Verbal Cues, Set-up Help, Contact Guard, Minimal Assistance - Sitting Balance Static Sitting: Independent without upper extremity support Dynamic Sitting: Reaches out of base of support, Reaches within base of support , Requires supervision - Transfers Wheelchair to Bed Transfers: Verbal Cues, Set-up Help, Contact Guard, Minimal Assistance Toilet Transfers: Verbal Cues, Set-up Help, Contact Guard, Minimal Assistance Tub Transfers: Verbal Cues, Set-up Help, Contact Guard, Minimal Assistance Comment: Pt trialed bathing transfers w tub bench. Pt trialed toilet transfer w commode. EDU ongoing. - Wheelchair Management Level of Assistance: Supervision Distance (ft.): 100 - Upper Extremity Status Right Upper Extremity Comment: RUE partial AROM t/o. PROM WFL - Pain Pain (assessed during therapy session): 0 - Insight/Carryover Insight/Carryover: Good - Patient/Family Education Comment: safety, mobility, therapy schedule, POC, therapy goals - Assessment/Plan Assessment: The patient has done well in therapy this week, but may benefit from bracing to help improve his gait. Feel the brace will assist with the drop foot and may help minimize ataxia. Recommend further PT working on gait, transfers, bed mobility, stairs, strengthening, endurance, and balance. - Goals Timeframe: 2 weeks Goals: transfers supervision. gait 500' without an AD supervision- with toe off brace. up and down 1 flight with 1 rail supervision - Provider Therapist: Carola flores License Number: [id number] Speech Therapy - Consult Information Patient on Program: Yes Medical Diagnosis: CVA Treatment Diagnosis: - mild dysarthria. - mild cognitive deficits - Assessment Memory Impairment: Mild Speech/Articulation Impairment: Mild - Plan Assessment: The patient has done well in therapy this week, but may benefit from bracing to help improve his gait. Feel the brace will assist with the drop foot and may help minimize ataxia. Recommend further PT working on gait, transfers, bed mobility, stairs, strengthening, endurance, and balance. - Provider Therapist: Elke Trevino License Number: [id number] Recreational Therapy - Participation Participation: Participates in Individual and/or Group Sessions - Attendance Attendance: 3-5 times per week - Activities Leisure Activities: Cards and Games - Socialization Level of Socialization: Initiates/interacts freely with care givers and peer - Diversional Time Diversional Time: television, reading - Assessment Assessment/Plan: The patient has done well in therapy this week, but may benefit from bracing to help improve his gait. Feel the brace will assist with the drop foot and may help minimize ataxia. Recommend further PT working on gait , transfers, bed mobility, stairs, strengthening, endurance, and balance. - Provider Therapist: Roslyn Jacobson, [employer] BLOOD TESTER #[id number] Nutrition - Current Diet Current Diet/ Supplement/ Feedings: Heart healthy advanced bite size diet - Appetite Percent Meal Consumed: 75-100% - Comments Comments: Care post CVA and safety precautions - Assessment/Goals/Time Frame Assessment/Goals/Time Frame: Pt at moderate nutritional risk. goal: 1. po intake of meals >75% with tolerance upon follow up. Follow-up due on 10/08/2016 - Provider Provider: Shara Seo RD Case Management - Psychosocial Assessment Support Systems: Patient lives with spouse and serves as primary contact. Katie Mills [phone] Psychological Interventions/Needs: Patient is alert and oriented x3 and is able to verbalize needs. Discharge Concerns: Patient with limited hands on assistance at home Patient/Family Meeting: CM met with patient and rehab team. Intervention/Goal/Outcome:: 1.Goal: SUpervision overall. 2. Plan: Home with skilled services. 3. DME needs. 4. f/u appts. 5. caregiver training- CM to coordinate with family. 6. continued emotional support, patient in better spirits today. 7. Tentative d/c date to be determined next week. - Discharge Plan Discharge Plan: Home with services Home Services: [facility] - Provider Provider: TEVIN Rubio, CERAMICS TECHNICIAN License Number: [id number] Rehabilitation Plan - Treatment Plan Treatment Plan: Physical Therapy, Occupational Therapy, Speech, Dietary, Patient /Family Education - Recommendation Recommendation: Physical Therapy, Occupational Therapy, Speech, Dietary, Patient /Family Education - Discharge Plan Discharge to: Home (october 15)
--- NOTE | 2016-10-09 13:29 | CP.PCM.PN ---
Subjective - Date & Time of Evaluation Date of Evaluation: 10/09/16 Time of Evaluation: 10:00 - Subjective Subjective: no acute complaints of pain Objective - Vital Signs/Intake and Output Vital Signs (last 24 hours): Temp Pulse Resp BP Pulse Ox 97.5 F L 62 20 129/51 L 99 10/09/16 10:00 10/09/16 10:00 10/09/16 10:00 10/09/16 10:00 10/09/16 10:00 - Medications Medications: Current Medications Aspirin (Aspirin) 325 mg PO DAILY [facility] Last Admin: 10/09/16 09:07 Dose: 325 mg Atorvastatin Calcium (Lipitor) 20 mg PO DAILY@2100 [facility] Last Admin: 10/08/16 21:28 Dose: 20 mg Carvedilol (Coreg) 6.[address] [facility] Last Admin: 10/08/16 21:28 Dose: 6.25 mg Clopidogrel Bisulfate (Plavix) 75 mg PO DAILY [facility] Last Admin: 10/09/16 09:03 Dose: 75 mg Clotrimazole (Lotrimin 1% Cream) 1 applic TOP BID [facility] Last Admin: 10/09/16 09:04 Dose: 1 applic Dorzolamide HCl (Trusopt) 1 drop OU BID [facility] Last Admin: 10/09/16 09:07 Dose: 1 drop Ferrous Sulfate (Feosol) 325 mg PO BID [facility] Last Admin: 10/09/16 09:03 Dose: 325 mg Pantoprazole Sodium (Protonix Ec Tab) 40 mg PO DAILY [facility] Last Admin: 10/09/16 09:04 Dose: 40 mg Sertraline HCl (Zoloft) [address] [facility] Last Admin: 10/08/16 21:28 Dose: 25 mg Timolol Maleate (Timoptic 0.5% Ophth Soln) 1 drop OU BID [facility] Last Admin: 10/09/16 09:04 Dose: 1 drop - Labs Labs: 10/08/16 06:52 10/08/16 06:52 - Head Exam Head Exam: ATRAUMATIC, NORMAL INSPECTION, NORMOCEPHALIC - Eye Exam Eye Exam: EOMI, Normal appearance, PERRL Pupil Exam: NORMAL ACCOMODATION - ENT Exam ENT Exam: Mucous Membranes Moist, Normal Exam - Neck Exam Neck Exam: Normal Inspection - Respiratory Exam Respiratory Exam: NORMAL BREATHING PATTERN - Cardiovascular Exam Cardiovascular Exam: REGULAR RHYTHM - GI/Abdominal Exam GI & Abdominal Exam: Normal Bowel Sounds - Exam External exam: NORMAL EXTERNAL EXAM - Extremities Exam Extremities Exam: Normal Capillary Refill - Neurological Exam Neurological Exam: Alert, Awake Neuro motor strength exam: Left Upper Extremity: 4, Right Upper Extremity: 3, Left Lower Extremity: 4, Right Lower Extremity: 3 - Psychiatric Exam Psychiatric exam: Normal Affect, Normal Mood - Skin Skin Exam: Dry, Intact Assessment and Plan (1) Cerebral edema Status: Acute (2) Cerebrovascular accident Assessment & Plan: physical, occupational therapy, rec therapy status post team conference discussed Dc planning with patient write for equipment and therapy after DC Status: Acute (3) Connective tissue disease Status: Acute (4) Essential (primary) hypertension Status: Acute (5) Hypertension Status: Acute (6) TIA (transient ischemic attack) Status: Acute (7) Near syncope Status: Acute
--- NOTE | 2016-10-09 14:32 | CP.PCM.PN ---
Subjective - Date & Time of Evaluation Date of Evaluation: 10/09/16 Time of Evaluation: 17:00 - Subjective Subjective: no acute complaints at present Objective - Vital Signs/Intake and Output Vital Signs (last 24 hours): Temp Pulse Resp BP Pulse Ox 97.5 F L 62 20 129/51 L 99 10/09/16 10:00 10/09/16 10:00 10/09/16 10:00 10/09/16 10:00 10/09/16 10:00 - Medications Medications: Current Medications Aspirin (Aspirin) 325 mg PO DAILY [facility] Last Admin: 10/09/16 09:07 Dose: 325 mg Atorvastatin Calcium (Lipitor) 20 mg PO DAILY@2100 [facility] Last Admin: 10/08/16 21:28 Dose: 20 mg Carvedilol (Coreg) 6.25 mg PO [facility] Last Admin: 10/08/16 21:28 Dose: 6.25 mg Clopidogrel Bisulfate (Plavix) 75 mg PO DAILY [facility] Last Admin: 10/09/16 09:03 Dose: 75 mg Clotrimazole (Lotrimin 1% Cream) 1 applic TOP BID [facility] Last Admin: 10/09/16 09:04 Dose: 1 applic Dorzolamide HCl (Trusopt) 1 drop OU BID [facility] Last Admin: 10/09/16 09:07 Dose: 1 drop Ferrous Sulfate (Feosol) 325 mg PO BID [facility] Last Admin: 10/09/16 09:03 Dose: 325 mg Pantoprazole Sodium (Protonix Ec Tab) 40 mg PO DAILY [facility] Last Admin: 10/09/16 09:04 Dose: 40 mg Sertraline HCl (Zoloft) 25 mg PO [facility] Last Admin: 10/08/16 21:28 Dose: 25 mg Timolol Maleate (Timoptic 0.5% Ophth Soln) 1 drop OU BID [facility] Last Admin: 10/09/16 09:04 Dose: 1 drop - Labs Labs: 10/08/16 06:52 10/08/16 06:52 - Head Exam Head Exam: ATRAUMATIC, NORMAL INSPECTION, NORMOCEPHALIC - Eye Exam Eye Exam: EOMI, Normal appearance, PERRL Pupil Exam: NORMAL ACCOMODATION - ENT Exam ENT Exam: Mucous Membranes Moist, Normal Exam - Respiratory Exam Respiratory Exam: NORMAL BREATHING PATTERN - Cardiovascular Exam Cardiovascular Exam: REGULAR RHYTHM - GI/Abdominal Exam GI & Abdominal Exam: Normal Bowel Sounds - Exam External exam: NORMAL EXTERNAL EXAM - Extremities Exam Extremities Exam: Normal Capillary Refill, Normal Inspection - Back Exam Back Exam: NORMAL INSPECTION - Neurological Exam Neurological Exam: Alert, Awake Neuro motor strength exam: Left Upper Extremity: 4, Right Upper Extremity: 3, Left Lower Extremity: 4, Right Lower Extremity: 3 - Psychiatric Exam Psychiatric exam: Normal Affect, Normal Mood - Skin Skin Exam: Dry, Intact Assessment and Plan (1) Cerebral edema Status: Acute (2) Cerebrovascular accident Assessment & Plan: physical, occupational, recreational therapy for Rom strengthening transfers and gait training Status: Acute (3) Connective tissue disease Status: Acute (4) Essential (primary) hypertension Status: Acute (5) Hypertension Status: Acute (6) TIA (transient ischemic attack) Status: Acute (7) Near syncope Status: Acute
[2016-10-10 08:06] LABS: MEAN CELL VOLUME 88.6 fl (80.0-94.0); MEAN CORPUSCULAR HEMOGLOBIN 30.1 pg (27.0-31.0); RED CELL DISTRIBUTION WIDTH 14.5 % (11.5-14.5); WHITE BLOOD COUNT 4.6 K/uL (4.8-10.8)
[2016-10-10] MEDS: Pantoprazole 40 mg EC Tab PO SCH (08:39)
[2016-10-10] MEDS: Dorzolamide 2% Ophth Soln OU SCH ×2 (08:40→17:25)
--- NOTE | 2016-10-10 09:55 | CP.PCM.PN ---
Subjective - Date & Time of Evaluation Date of Evaluation: 10/10/16 Time of Evaluation: 09:55 - Subjective Subjective: gait improving speech better Objective - Vital Signs/Intake and Output Vital Signs (last 24 hours): Temp Pulse Resp BP Pulse Ox 98.0 F 61 19 139/54 L 99 10/10/16 08:29 10/10/16 08:29 10/10/16 08:29 10/10/16 08:29 10/10/16 08:29 - Medications Medications: Current Medications Aspirin (Aspirin) 325 mg PO DAILY [facility] Last Admin: 10/09/16 09:07 Dose: 325 mg Atorvastatin Calcium (Lipitor) 20 mg PO DAILY@2100 [facility] Last Admin: 10/09/16 21:32 Dose: 20 mg Carvedilol (Coreg) 6.25 mg PO [facility] Last Admin: 10/09/16 22:01 Dose: 6.25 mg Clopidogrel Bisulfate (Plavix) 75 mg PO DAILY [facility] Last Admin: 10/10/16 08:39 Dose: 75 mg Clotrimazole (Lotrimin 1% Cream) 1 applic TOP BID [facility] Last Admin: 10/10/16 08:40 Dose: 1 applic Dorzolamide HCl (Trusopt) 1 drop OU BID [facility] Last Admin: 10/10/16 08:40 Dose: 1 drop Ferrous Sulfate (Feosol) 325 mg PO BID [facility] Last Admin: 10/10/16 08:39 Dose: 325 mg Pantoprazole Sodium (Protonix Ec Tab) 40 mg PO DAILY [facility] Last Admin: 10/10/16 08:39 Dose: 40 mg Sertraline HCl (Zoloft) 25 mg PO [facility] Last Admin: 10/09/16 22:03 Dose: 25 mg Timolol Maleate (Timoptic 0.5% Oph Soln) 1 drop OU BID [facility] Last Admin: 10/10/16 08:40 Dose: 1 drop - Labs Labs: 10/10/16 05:20 10/08/16 06:52 - Constitutional Appears: Well - Head Exam Head Exam: ATRAUMATIC, NORMAL INSPECTION, NORMOCEPHALIC - Eye Exam Eye Exam: EOMI, Normal appearance, PERRL Pupil Exam: NORMAL ACCOMODATION, PERRL - ENT Exam ENT Exam: Mucous Membranes Moist, Normal Exam - Neck Exam Neck Exam: Full ROM, Normal Inspection. absent: Lymphadenopathy - Respiratory Exam Respiratory Exam: Clear to Ausculation Bilateral, NORMAL BREATHING PATTERN - Cardiovascular Exam Cardiovascular Exam: REGULAR RHYTHM, +S1, +S2. absent: Murmur - GI/Abdominal Exam GI & Abdominal Exam: Soft, Normal Bowel Sounds. absent: Tenderness - Rectal Exam Rectal Exam: NORMAL INSPECTION - Extremities Exam Extremities Exam: Full ROM, Normal Capillary Refill, Normal Inspection. absent : Joint Swelling, Pedal Edema - Back Exam Back Exam: NORMAL INSPECTION - Neurological Exam Neurological Exam: Abnormal Gait, Alert, Awake, CN II-XII Intact, Oriented x3 - Psychiatric Exam Psychiatric exam: Normal Affect, Normal Mood - Skin Skin Exam: Dry, Intact, Normal Color, Warm Assessment and Plan - Assessment and Plan (Free Text) Assessment: cva htn anemia Plan: continue present rx
[2016-10-11] MEDS: Dorzolamide 2% Ophth Soln OU SCH ×2 (08:31→16:34)
[2016-10-11] MEDS: Pantoprazole 40 mg EC Tab PO SCH (09:00)
--- NOTE | 2016-10-11 14:48 | CP.PCM.PN ---
Subjective - Date & Time of Evaluation Date of Evaluation: 10/11/16 Time of Evaluation: 14:49 - Subjective Subjective: STILL HAS WEAKNESS OF R LEG SPEECH IMPROVED Objective - Vital Signs/Intake and Output Vital Signs (last 24 hours): Temp Pulse Resp BP Pulse Ox 97.8 F 55 L 19 118/60 100 10/11/16 07:56 10/11/16 07:56 10/11/16 07:56 10/11/16 07:56 10/11/16 07:56 - Medications Medications: Current Medications Aspirin (Aspirin) 325 mg PO DAILY [facility] Last Admin: 10/11/16 08:35 Dose: 325 mg Atorvastatin Calcium (Lipitor) 20 mg PO DAILY@2100 [facility] Last Admin: 10/10/16 21:25 Dose: 20 mg Carvedilol (Coreg) 6.25 mg PO [facility] Last Admin: 10/10/16 22:00 Dose: 6.25 mg Clopidogrel Bisulfate (Plavix) 75 mg PO DAILY [facility] Last Admin: 10/11/16 08:31 Dose: 75 mg Clotrimazole (Lotrimin 1% Cream) 1 applic TOP BID [facility] Last Admin: 10/11/16 08:31 Dose: 1 applic Dorzolamide HCl (Trusopt) 1 drop OU BID [facility] Last Admin: 10/11/16 08:31 Dose: 1 drop Ferrous Sulfate (Feosol) 325 mg PO BID [facility] Last Admin: 10/11/16 08:30 Dose: 325 mg Pantoprazole Sodium (Protonix Ec Tab) 40 mg PO DAILY [facility] Last Admin: 10/11/16 09:00 Dose: 40 mg Sertraline HCl (Zoloft) 25 mg PO [facility] Last Admin: 10/10/16 21:26 Dose: 25 mg Timolol Maleate (Timoptic 0.5% Ophth Soln) 1 drop OU BID [facility] Last Admin: 10/11/16 08:31 Dose: 1 drop - Labs Labs: 10/10/16 05:20 10/08/16 06:52 - Head Exam Head Exam: ATRAUMATIC, NORMAL INSPECTION, NORMOCEPHALIC - Eye Exam Eye Exam: EOMI, Normal appearance, PERRL Pupil Exam: NORMAL ACCOMODATION, PERRL - ENT Exam ENT Exam: Mucous Membranes Moist, Normal Exam - Neck Exam Neck Exam: Full ROM, Normal Inspection. absent: Lymphadenopathy - Respiratory Exam Respiratory Exam: Clear to Ausculation Bilateral, NORMAL BREATHING PATTERN - Cardiovascular Exam Cardiovascular Exam: REGULAR RHYTHM, +S1, +S2. absent: Murmur - GI/Abdominal Exam GI & Abdominal Exam: Soft, Normal Bowel Sounds. absent: Tenderness - Rectal Exam Rectal Exam: NORMAL INSPECTION - Extremities Exam Extremities Exam: Full ROM, Normal Capillary Refill, Normal Inspection. absent : Joint Swelling, Pedal Edema - Back Exam Back Exam: NORMAL INSPECTION - Neurological Exam Neurological Exam: Alert, Awake, CN II-XII Intact, Normal Gait, Oriented x3 - Psychiatric Exam Psychiatric exam: Normal Affect, Normal Mood - Skin Skin Exam: Dry, Intact, Normal Color, Warm Assessment and Plan - Assessment and Plan (Free Text) Assessment: CVA HTN ANEMIA Plan: CONTINUE SAME RX
[2016-10-12] MEDS: Dorzolamide 2% Ophth Soln OU SCH ×2 (08:27→17:01)
[2016-10-12] MEDS: Pantoprazole 40 mg EC Tab PO SCH (08:29)
--- NOTE | 2016-10-12 09:51 | CP.PCM.PN ---
Subjective - Date & Time of Evaluation Date of Evaluation: 10/12/16 Time of Evaluation: 09:50 - Subjective Subjective: no complaints no apparent distress Objective - Vital Signs/Intake and Output Vital Signs (last 24 hours): Temp Pulse Resp BP Pulse Ox 97.7 F 71 20 148/70 100 10/11/16 21:09 10/11/16 21:09 10/11/16 21:09 10/11/16 21:09 10/11/16 21:09 - Medications Medications: Current Medications Aspirin (Aspirin) 325 mg PO DAILY [facility] Last Admin: 10/12/16 08:31 Dose: 325 mg Atorvastatin Calcium (Lipitor) 20 mg PO DAILY@2100 [facility] Last Admin: 10/11/16 21:09 Dose: 20 mg Carvedilol (Coreg) 6.25 mg PO [facility] Last Admin: 10/11/16 21:09 Dose: 6.25 mg Clopidogrel Bisulfate (Plavix) 75 mg PO DAILY [facility] Last Admin: 10/12/16 08:28 Dose: 75 mg Clotrimazole (Lotrimin 1% Cream) 1 applic TOP BID [facility] Last Admin: 10/12/16 08:29 Dose: 1 applic Dorzolamide HCl (Trusopt) 1 drop OU BID [facility] Last Admin: 10/12/16 08:27 Dose: 1 applic Ferrous Sulfate (Feosol) 325 mg PO BID [facility] Last Admin: 10/12/16 08:29 Dose: 325 mg Pantoprazole Sodium (Protonix Ec Tab) 40 mg PO DAILY [facility] Last Admin: 10/12/16 08:29 Dose: 40 mg Sertraline HCl (Zoloft) 25 mg PO [facility] Last Admin: 10/11/16 21:10 Dose: 25 mg Timolol Maleate (Timoptic 0.5% Oph Soln) 1 drop OU BID [facility] Last Admin: 10/12/16 08:27 Dose: 1 drop - Labs Labs: 10/10/16 05:20 10/08/16 06:52 - Constitutional Appears: No Acute Distress - Head Exam Head Exam: ATRAUMATIC, NORMAL INSPECTION, NORMOCEPHALIC - Eye Exam Eye Exam: EOMI, Normal appearance, PERRL Pupil Exam: NORMAL ACCOMODATION, PERRL - ENT Exam ENT Exam: Mucous Membranes Moist, Normal Exam - Neck Exam Neck Exam: Full ROM, Normal Inspection. absent: Lymphadenopathy - Respiratory Exam Respiratory Exam: Clear to Ausculation Bilateral, NORMAL BREATHING PATTERN - Cardiovascular Exam Cardiovascular Exam: REGULAR RHYTHM, +S1, +S2. absent: Murmur - GI/Abdominal Exam GI & Abdominal Exam: Soft, Normal Bowel Sounds. absent: Tenderness - Rectal Exam Rectal Exam: NORMAL INSPECTION - Extremities Exam Extremities Exam: Full ROM, Normal Capillary Refill, Normal Inspection. absent : Joint Swelling, Pedal Edema - Back Exam Back Exam: NORMAL INSPECTION - Neurological Exam Neurological Exam: Abnormal Gait, Alert, Awake, CN II-XII Intact, Oriented x3 - Psychiatric Exam Psychiatric exam: Normal Affect, Normal Mood - Skin Skin Exam: Dry, Intact, Normal Color, Warm Assessment and Plan - Assessment and Plan (Free Text) Assessment: cva hypertension anemia Plan: continue same rx d/c home next week if stable
[2016-10-13] MEDS: Pantoprazole 40 mg EC Tab PO SCH (08:22)
[2016-10-13] MEDS: Dorzolamide 2% Ophth Soln OU SCH ×2 (08:24→16:17)
--- NOTE | 2016-10-13 11:45 | CP.PCM.PN ---
Subjective - Date & Time of Evaluation Date of Evaluation: 10/13/16 Time of Evaluation: 11:45 - Subjective Subjective: NO NEW CLINICAL FINDINGS NO NEW NEURO DEFICITS PT/OT PROGRESSING WELL FOR D/C HOME THIS WEEK Objective - Vital Signs/Intake and Output Vital Signs (last 24 hours): Temp Pulse Resp BP Pulse Ox 97.9 F 65 20 135/59 L 97 10/13/16 10:00 10/13/16 10:00 10/13/16 10:00 10/13/16 10:00 10/13/16 10:00 - Medications Medications: Current Medications Aspirin (Aspirin) 325 mg PO DAILY [facility] Last Admin: 10/13/16 08:22 Dose: 325 mg Atorvastatin Calcium (Lipitor) 20 mg PO DAILY@2100 [facility] Last Admin: 10/12/16 21:27 Dose: 20 mg Carvedilol (Coreg) 6.25 mg PO [facility] Last Admin: 10/12/16 21:27 Dose: 6.25 mg Clopidogrel Bisulfate (Plavix) 75 mg PO DAILY [facility] Last Admin: 10/13/16 08:23 Dose: 75 mg Clotrimazole (Lotrimin 1% Cream) 1 applic TOP BID [facility] Last Admin: 10/13/16 08:23 Dose: 1 applic Dorzolamide HCl (Trusopt) 1 drop OU BID [facility] Last Admin: 10/13/16 08:24 Dose: 1 drop Ferrous Sulfate (Feosol) 325 mg PO BID [facility] Last Admin: 10/13/16 08:23 Dose: 325 mg Pantoprazole Sodium (Protonix Ec Tab) 40 mg PO DAILY [facility] Last Admin: 10/13/16 08:22 Dose: 40 mg Sertraline HCl (Zoloft) 25 mg PO [facility] Last Admin: 10/12/16 21:27 Dose: 25 mg Timolol Maleate (Timoptic 0.5% Ophth Soln) 1 drop OU BID [facility] Last Admin: 10/13/16 08:24 Dose: 1 drop - Labs Labs: 10/10/16 05:20 10/08/16 06:52 - Constitutional Appears: No Acute Distress - Head Exam Head Exam: ATRAUMATIC, NORMAL INSPECTION, NORMOCEPHALIC - Eye Exam Eye Exam: EOMI, Normal appearance, PERRL Pupil Exam: NORMAL ACCOMODATION, PERRL - ENT Exam ENT Exam: Mucous Membranes Moist, Normal Exam - Neck Exam Neck Exam: Full ROM, Normal Inspection. absent: Lymphadenopathy - Respiratory Exam Respiratory Exam: Clear to Ausculation Bilateral, NORMAL BREATHING PATTERN - Cardiovascular Exam Cardiovascular Exam: REGULAR RHYTHM, +S1, +S2. absent: Murmur - GI/Abdominal Exam GI & Abdominal Exam: Soft, Normal Bowel Sounds. absent: Tenderness - Rectal Exam Rectal Exam: NORMAL INSPECTION - Exam External exam: NORMAL EXTERNAL EXAM - Extremities Exam Extremities Exam: Full ROM, Normal Capillary Refill, Normal Inspection. absent : Joint Swelling, Pedal Edema - Back Exam Back Exam: NORMAL INSPECTION - Neurological Exam Neurological Exam: Abnormal Gait, Alert, Awake, CN II-XII Intact, Oriented x3 - Psychiatric Exam Psychiatric exam: Normal Affect, Normal Mood - Skin Skin Exam: Dry, Intact, Normal Color, Warm Assessment and Plan - Assessment and Plan (Free Text) Assessment: CVA HTN Plan: CONTINUE SAME RX
[2016-10-13 21:28] VITALS: RESP 20; O2SAT 99
[2016-10-14] MEDS: Dorzolamide 2% Ophth Soln OU SCH ×2 (08:24→17:01)
[2016-10-14] MEDS: Pantoprazole 40 mg EC Tab PO SCH (08:28)
--- NOTE | 2016-10-14 08:50 | CP.PCM.PN ---
Subjective - Date & Time of Evaluation Date of Evaluation: 10/14/16 Time of Evaluation: 08:50 - Subjective Subjective: CONTINUES TO IMPROVE NO CHEST PAINS/SOB SPEECH IMPROVED GAIT IMPROVED Objective - Vital Signs/Intake and Output Vital Signs (last 24 hours): Temp Pulse Resp BP Pulse Ox 97.9 F 69 20 133/59 L 99 10/14/16 08:16 10/14/16 08:16 10/14/16 08:16 10/14/16 08:16 10/14/16 08:16 - Medications Medications: Current Medications Aspirin (Aspirin) 325 mg PO DAILY [facility] Last Admin: 10/14/16 08:27 Dose: 325 mg Atorvastatin Calcium (Lipitor) 20 mg PO DAILY@2100 [facility] Last Admin: 10/13/16 21:28 Dose: 20 mg Carvedilol (Coreg) 6.25 mg PO [facility] Last Admin: 10/13/16 21:28 Dose: 6.25 mg Clopidogrel Bisulfate (Plavix) 75 mg PO DAILY [facility] Last Admin: 10/14/16 08:28 Dose: 75 mg Clotrimazole (Lotrimin 1% Cream) 1 applic TOP BID [facility] Last Admin: 10/14/16 08:28 Dose: 1 applic Dorzolamide HCl (Trusopt) 1 drop OU BID [facility] Last Admin: 10/14/16 08:24 Dose: 1 drop Ferrous Sulfate (Feosol) 325 mg PO BID [facility] Last Admin: 10/14/16 08:28 Dose: 325 mg Pantoprazole Sodium (Protonix Ec Tab) 40 mg PO DAILY [facility] Last Admin: 10/14/16 08:28 Dose: 40 mg Sertraline HCl (Zoloft) 25 mg PO [facility] Last Admin: 10/13/16 22:30 Dose: 25 mg Timolol Maleate (Timoptic 0.5% Ophth Soln) 1 drop OU BID [facility] Last Admin: 10/14/16 08:28 Dose: 1 drop - Labs Labs: 10/10/16 05:20 10/08/16 06:52 - Constitutional Appears: No Acute Distress - Head Exam Head Exam: ATRAUMATIC, NORMAL INSPECTION, NORMOCEPHALIC - Eye Exam Eye Exam: EOMI, Normal appearance, PERRL Pupil Exam: NORMAL ACCOMODATION, PERRL - ENT Exam ENT Exam: Mucous Membranes Moist, Normal Exam - Neck Exam Neck Exam: Full ROM, Normal Inspection. absent: Lymphadenopathy - Respiratory Exam Respiratory Exam: Clear to Ausculation Bilateral, NORMAL BREATHING PATTERN - Cardiovascular Exam Cardiovascular Exam: REGULAR RHYTHM, +S1, +S2. absent: Murmur - GI/Abdominal Exam GI & Abdominal Exam: Soft, Normal Bowel Sounds. absent: Tenderness - Rectal Exam Rectal Exam: NORMAL INSPECTION - Extremities Exam Extremities Exam: Full ROM, Normal Capillary Refill, Normal Inspection. absent : Joint Swelling, Pedal Edema - Back Exam Back Exam: NORMAL INSPECTION - Neurological Exam Neurological Exam: Abnormal Gait, Alert, Awake, CN II-XII Intact, Oriented x3 - Psychiatric Exam Psychiatric exam: Normal Affect, Normal Mood - Skin Skin Exam: Dry, Intact, Normal Color, Warm Assessment and Plan - Assessment and Plan (Free Text) Assessment: CVA HTN ANEMIA HX OF PROSTATE CANCER Plan: FOR DISCHARGE IN AM
[2016-10-15 08:10] VITALS: BP 125/58; PULSE 65; TEMP 97.7
[2016-10-15] MEDS: Dorzolamide 2% Ophth Soln OU SCH (08:51)
[2016-10-15] MEDS: Pantoprazole 40 mg EC Tab PO SCH (08:53)
--- NOTE | 2016-10-15 09:40 | CP.PCM.DIS ---
Provider - Provider Date of Admission: 09/30/16 14:09 Attending physician: Tres Hameed MD Primary care physician: Everardo Celaya Jr, MD Time Spent in preparation of Discharge (in minutes): 30 Diagnosis - Discharge Diagnosis (1) Cerebral edema Status: Acute (2) Cerebrovascular accident Status: Acute (3) Connective tissue disease Status: Acute (4) Essential (primary) hypertension Status: Acute (5) Hypertension Status: Acute (6) Anemia Status: Acute Hospital Course - Lab Results Lab Results: Micro Results 10/09/16 08:32 Urine,Clean Catch Urine Culture - Final <10,000 CFU/ML. MULTIPLE SPECIES. PROBABLE CONTAMINATION. Most Recent Lab Values WBC 4.6 K/uL (4.8-10.8) L 10/10/16 05:20 RBC 2.82 Mil/uL (4.40-5.90) L 10/10/16 05:20 Hgb 8.5 g/dL (12.0-18.0) L 10/10/16 05:20 Hct 25.0 % (35.0-51.0) L 10/10/16 05:20 MCV 88.6 fl (80.0-94.0) 10/10/16 05:20 MCH 30.1 pg (27.0-31.0) 10/10/16 05:20 MCHC 34.0 g/dL (33.0-37.0) 10/10/16 05:20 RDW 14.5 % (11.5-14.5) 10/10/16 05:20 Plt Count 199 K/uL (130-400) 10/10/16 05:20 Sodium 141 mmol/l (132-148) 10/08/16 06:52 Potassium 4.7 MMOL/L (3.6-5.0) 10/08/16 06:52 Chloride 106 mmol/L (98-107) 10/08/16 06:52 Carbon Dioxide 24 mmol/L (22-30) 10/08/16 06:52 Anion Gap 16 (10-20) 10/08/16 06:52 BUN 30 mg/dl (9-20) H 10/08/16 06:52 Creatinine 1.2 mg/dL (0.8-1.5) 10/08/16 06:52 Est GFR ( Amer) > 60 10/08/16 06:52 Est GFR (Non-Af Amer) 59 10/08/16 06:52 POC Glucose (mg/dL) 84 mg/dL (65-110) 10/11/16 16:25 Random Glucose 91 mg/dL (75-110) 10/08/16 06:52 Calcium 8.3 mg/dL (8.4-10.2) L 10/08/16 06:52 Prostate Specific Ag 0.162 ng/ML (0.00-4.0) 10/10/16 05:20 Urine Color Yellow (YELLOW) 10/09/16 08:32 Urine Clarity Clear (Clear) 10/09/16 08:32 Urine pH 6.0 (5.0-8.0) 10/09/16 08:32 Ur Specific Staley 1.014 (1.003-1.030) 10/09/16 08:32 Urine Protein Negative mg/dL (NEGATIVE) 10/09/16 08:32 Urine Glucose (UA) Neg mg/dL (Normal) 10/09/16 08:32 Urine Ketones Negative mg/dL (NEGATIVE) 10/09/16 08:32 Urine Blood Negative (NEGATIVE) 10/09/16 08:32 Urine Nitrate Negative (NEGATIVE) 10/09/16 08:32 Urine Bilirubin Negative (NEGATIVE) 10/09/16 08:32 Urine Urobilinogen 0.2-1.0 mg/dL (0.2-1.0) 10/09/16 08:32 Ur Leukocyte Esterase Neg Edgard/uL (Negative) 10/09/16 08:32 Urine RBC (Auto) < 1 /hpf (0-3) 10/09/16 08:32 Urine Microscopic WBC < 1 /hpf (0-5) 10/09/16 08:32 - Hospital Course Hospital Course: CLINICALLY IMPROVED R LEG WEAKNESS IMPROVED BUT STILL PRESENT Discharge Exam - Head Exam Head Exam: ATRAUMATIC, NORMAL INSPECTION, NORMOCEPHALIC - Eye Exam Eye Exam: EOMI, Normal appearance, PERRL Pupil Exam: NORMAL ACCOMODATION, PERRL - GI/Abdominal Exam GI & Abdominal Exam: Normal Bowel Sounds - Rectal Exam Rectal Exam: NORMAL INSPECTION - Neurological Exam Neurological exam: Abnormal Gait, Alert, CN II-XII Intact, Oriented x3, Reflexes Normal - Psychiatric Exam Psychiatric exam: Normal Affect, Normal Mood - Skin Skin Exam: Dry, Intact, Normal Color, Warm Discharge Plan - Follow Up Plan Condition: GOOD Disposition: HOME/ ROUTINE Patient education suggested?: Yes Instructions: Aspirin (By mouth), Sertraline (By mouth), Atorvastatin (By mouth ), Carvedilol (By mouth), Clopidogrel (By mouth), Glaucoma (GEN), Cataracts (GEN ), Stroke (DC) Additional Instructions: FOLLOW UP WITH DR HAMEED Referrals: Everardo Celaya MD [Primary Care Provider] -
--- NOTE | 2016-10-15 14:40 | CP.PCM.PN ---
Subjective - Date & Time of Evaluation Date of Evaluation: 10/15/16 Time of Evaluation: 10:00 - Subjective Subjective: no acute complaint of any pain still with some weakness Objective - Vital Signs/Intake and Output Vital Signs (last 24 hours): Temp Pulse Resp BP Pulse Ox 97.7 F 65 20 125/58 L 99 10/15/16 08:10 10/15/16 08:10 10/15/16 08:10 10/15/16 08:10 10/15/16 08:10 - Medications Medications: Current Medications Aspirin (Aspirin) 325 mg PO DAILY [facility] Last Admin: 10/15/16 08:56 Dose: 325 mg Atorvastatin Calcium (Lipitor) 20 mg PO DAILY@2100 [facility] Last Admin: 10/14/16 21:30 Dose: 20 mg Carvedilol (Coreg) 6.25 mg PO [facility] Last Admin: 10/14/16 21:29 Dose: 6.25 mg Clopidogrel Bisulfate (Plavix) 75 mg PO DAILY [facility] Last Admin: 10/15/16 08:53 Dose: 75 mg Clotrimazole (Lotrimin 1% Cream) 1 applic TOP BID [facility] Last Admin: 10/15/16 08:52 Dose: 1 applic Dorzolamide HCl (Trusopt) 1 drop OU BID [facility] Last Admin: 10/15/16 08:51 Dose: 1 drop Ferrous Sulfate (Feosol) 325 mg PO BID [facility] Last Admin: 10/15/16 08:53 Dose: 325 mg Pantoprazole Sodium (Protonix Ec Tab) 40 mg PO DAILY [facility] Last Admin: 10/15/16 08:53 Dose: 40 mg Sertraline HCl (Zoloft) 25 mg PO [facility] Last Admin: 10/14/16 21:30 Dose: 25 mg Timolol Maleate (Timoptic 0.5% Ophth Soln) 1 drop OU BID [facility] Last Admin: 10/15/16 08:56 Dose: 1 drop - Labs Labs: 10/10/16 05:20 10/08/16 06:52 - Head Exam Head Exam: ATRAUMATIC, NORMAL INSPECTION, NORMOCEPHALIC - Eye Exam Eye Exam: EOMI, Normal appearance, PERRL Pupil Exam: NORMAL ACCOMODATION - ENT Exam ENT Exam: Mucous Membranes Moist, Normal Exam - Respiratory Exam Respiratory Exam: NORMAL BREATHING PATTERN - Cardiovascular Exam Cardiovascular Exam: REGULAR RHYTHM - GI/Abdominal Exam GI & Abdominal Exam: Normal Bowel Sounds - Rectal Exam Rectal Exam: NORMAL INSPECTION - Exam External exam: NORMAL EXTERNAL EXAM - Extremities Exam Extremities Exam: Normal Capillary Refill, Normal Inspection - Back Exam Back Exam: NORMAL INSPECTION - Neurological Exam Neurological Exam: Alert, Awake Neuro motor strength exam: Left Upper Extremity: 4, Right Upper Extremity: 3, Left Lower Extremity: 4, Right Lower Extremity: 3 - Psychiatric Exam Psychiatric exam: Normal Affect, Normal Mood - Skin Skin Exam: Dry, Intact Assessment and Plan (1) Cerebral edema Status: Acute (2) Cerebrovascular accident Assessment & Plan: plan for physcial, occupational, and rec therapy monitor skin need new brace for leg Status: Acute (3) Connective tissue disease Status: Acute (4) Essential (primary) hypertension Status: Acute (5) Hypertension Status: Acute (6) TIA (transient ischemic attack) Status: Acute (7) Near syncope Status: Acute
--- NOTE | 2016-10-15 14:58 | CP.PCM.PN ---
Subjective - Date & Time of Evaluation Date of Evaluation: 10/14/16 Time of Evaluation: 18:00 - Subjective Subjective: no acute complaints of neck or back pain Objective - Vital Signs/Intake and Output Vital Signs (last 24 hours): Temp Pulse Resp BP Pulse Ox 97.7 F 65 10/14/16 08:10 - Labs Labs: 10/10/16 05:20 10/08/16 06:52 - Head Exam Head Exam: ATRAUMATIC, NORMAL INSPECTION, NORMOCEPHALIC - Eye Exam Eye Exam: EOMI, Normal appearance, PERRL Pupil Exam: NORMAL ACCOMODATION - ENT Exam ENT Exam: Mucous Membranes Moist, Normal Exam - Neck Exam Neck Exam: Normal Inspection - Respiratory Exam Respiratory Exam: NORMAL BREATHING PATTERN - Cardiovascular Exam Cardiovascular Exam: REGULAR RHYTHM - GI/Abdominal Exam GI & Abdominal Exam: Normal Bowel Sounds - Rectal Exam Rectal Exam: NORMAL INSPECTION - Exam External exam: NORMAL EXTERNAL EXAM - Extremities Exam Extremities Exam: Normal Capillary Refill - Back Exam Back Exam: NORMAL INSPECTION - Neurological Exam Neurological Exam: Alert, Awake Neuro motor strength exam: Left Upper Extremity: 4, Right Upper Extremity: 3, Left Lower Extremity: 4, Right Lower Extremity: 3 - Psychiatric Exam Psychiatric exam: Normal Affect, Normal Mood Assessment and Plan (1) Cerebral edema Status: Acute (2) Cerebrovascular accident Assessment & Plan: range of motion , strenghtening , transfers and gait traing physcial, occupational, receational therapy Status: Acute (3) Connective tissue disease Status: Acute (4) Essential (primary) hypertension Status: Acute (5) Hypertension Status: Acute (6) TIA (transient ischemic attack) Status: Acute (7) Near syncope Status: Acute
--- NOTE | 2016-11-08 15:10 | DS ---
The patient discharged at a supervision level to get [facility] for home visiting nurse, home PT, [facility] health aide for the patient. The patient to follow up with medical physician, Dr. Celaya, and Dr Jeferson Parker. The patient was initially admitted on 09/30/2016 and discharged on 10/15 to home. The patien t did well during the rehab stay. The patient participated in 1:1 and group therapy sessions 3-5 roman es a week for speech therapy. Speech language within normal limits. Immediate recall mild impairmen t. The patient did have some problems with dysphagia and minimal mild dysarthria. For physical thera py, the patient's strength right hip 3, right knee 4, ankle 1. Mobility, transfers independent. Sit to supine supervision transfers, sit to supine supervision, dynamic sitting, reaching within the bas e of support. Static contact guard assist, dynamic contact guard to min assist. Supervision 200 fee t x 4 with cane, dorsiflexion assist with the therapist. 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 The patient's ADLs, meal preparation, supervision. Feeding, toileting, grooming m odified independent. Upper body dressing supervision. Lower body is sit up supervision, bathing low er body contact guard. The patient discharged home on 10/15. Further medical followup by the medical a ttpacheco and further additional services after discharge. Otoniel Calderon MD cc: [id number] TT: 11/08/2016 15:09:13 elaina
== END 2016-10-15 14:49 | disposition home or self-care (01) | DRG 56 ==
PROVIDERS: ADMIT Internal Medicine Pulmonary Disease; ATTEND Internal Medicine Pulmonary Disease
PROC: F08Z4FZ Home Management Treatment using Assistive, Adaptive, Supportive or Protective Equipment (ICD-10-PCS; principal; 2016-10-01)
PROC: F07L6ZZ Therapeutic Exercise Treatment of Musculoskeletal System - Lower Back / Lower Extremity (ICD-10-PCS; 2016-10-01)
PROC: F07Z9FZ Gait Training/Functional Ambulation Treatment using Assistive, Adaptive, Supportive or Protective Equipment (ICD-10-PCS; 2016-10-01)
DX: I69.951 Hemiplegia and hemiparesis following unspecified cerebrovascular disease affecting right dominant side (principal); G93.6 Cerebral edema; I10 Essential (primary) hypertension; E78.5 Hyperlipidemia, unspecified; M35.9 Systemic involvement of connective tissue, unspecified; D50.9 Iron deficiency anemia, unspecified; I69.928 Other speech and language deficits following unspecified cerebrovascular disease; Z87.891 Personal history of nicotine dependence; E78.00 Pure hypercholesterolemia, unspecified; H40.9 Unspecified glaucoma; Z85.46 Personal history of malignant neoplasm of prostate; R21 Rash and other nonspecific skin eruption

== ENCOUNTER 2017-04-02 10:57 | Inpatient (IN) | payer MEDICARE ==
[2017-04-02 10:57] VITALS: BMI 29.2
[2017-04-02 11:41] LABS: BASO % 0.8 % (0.0-2.0); EOS # 0.1 K/uL (0.0-0.7); EOS % 3.9 % (0.0-4.0); HEMATOCRIT 35.9 % (35.0-51.0); LYMPH # 0.6 K/uL (1.0-4.3); LYMPH % 15.9 % (20.0-40.0); MEAN CORPUSCULAR HEMOGLOBIN 30.3 pg (27.0-31.0); MEAN CORPUSCULAR HGB CONC 32.9 g/dL (33.0-37.0); MEAN PLATELET VOLUME 8.5 fl (7.2-11.7); MONO # 0.4 K/uL (0.0-0.8); MONO % 10.1 % (0.0-10.0); NEUT # 2.6 K/uL (1.8-7.0); NEUT % 69.3 % (50.0-75.0); NRBC % 0.2 % (0.0-0.0); RED CELL DISTRIBUTION WIDTH 14.8 % (11.5-14.5); WHITE BLOOD COUNT 3.8 K/uL (4.8-10.8)
--- NOTE | 2017-04-02 11:41 | ED PDOC ---
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 pt denies LOC. . pt has not had similar sx in the past no n/t/w/bv/dv. 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), HTN, Hypercholesterolemia Denies: HIV, Chronic Kidney Disease - Family History Family History: States: Unknown Family Hx - Living Arrangements Living Arrangements: With Family - Social History Current smoker - smoking cessation education provided: No Alcohol: None - Home Medications Home Medications: Ambulatory Orders Medication Instructions Recorded Carvedilol [Coreg] 6.25 mg PO HS 06/16/15 Aspirin 325 mg PO DAILY #30 tab 09/27/16 Atorvastatin [Lipitor] 20 mg PO DAILY tab 09/27/16 Clopidogrel [Plavix] 75 mg PO DAILY tab 09/27/16 Dorzolamide 2% [Trusopt] 1 drop OU BID bottle 09/27/16 Timolol 0.5% Ophth [Timoptic 0.5% 1 drop OU BID bottle 09/27/16 Ophth Soln] Ferrous Sulfate [Feosol] 325 mg PO BID tab 10/15/16 Sertraline [Zoloft] 25 mg PO HS tab 10/15/16 Timolol 0.5% Ophth [Timoptic 0.5% 1 drop OU BID bottle 10/15/16 Ophth Soln] - Allergies Allergies/Adverse Reactions: Allergies Allergy/AdvReac Type Severity Reaction Status Date / Time Penicillins Allergy HEADACHE Verified 09/30/16 14:09 Review of Systems ROS Statement: Except As Marked, All Systems Reviewed And Found Negative Constitutional: Negative for: Fever, Chills Cardiovascular: Positive for: Light Headedness. Negative for: Chest Pain, Palpitations Respiratory: Negative for: Cough, Shortness of Breath, SOB with Exertion Gastrointestinal: Negative for: Nausea, Vomiting, Abdominal Pain Musculoskeletal: Negative for: Neck Pain Neurological: Positive for: Headache. Negative for: Confusion, Seizures, Altered Mental Status Physical Exam - Reviewed Nursing Documentation Reviewed: Yes Vital Signs Reviewed: Yes - Physical Exam Appears: Positive for: Uncomfortable Head Exam: Positive for: NORMOCEPHALIC. Negative for: NORMAL INSPECTION ( abrasion to left buddhist) Skin: Positive for: Normal Color, Warm, Dry Eye Exam: Positive for: Normal appearance, EOMI, PERRL, Other (vf intact). Negative for: Nystagmus, Periorbital swelling, Periorbital tenderness, Conjunctival injection, Scleral icterus ENT: Positive for: Pharynx Is (clear,mmm) Neck: Positive for: Normal, Painless ROM, Supple. Negative for: Decreased ROM, Limited ROM, Trachea Midline, Pain On Movement Of Neck Cardiovascular/Chest: Positive for: Regular Rate, Rhythm, Chest Non Tender. Negative for: Edema, Gallop, Murmur, Bradycardia, Tachycardia Respiratory: Positive for: Normal Breath Sounds. Negative for: Decreased Breath Sounds, Accessory Muscle Use, Crackles, Rales, Rhonchi, Stridor, Wheezing , Respiratory Distress Pulses-Radial (L): 2+ Pulses-Radial (R): 2+ Gastrointestinal/Abdominal: Positive for: Normal Exam, Bowel Sounds, Soft. Negative for: Tenderness Back: Positive for: Normal Inspection. Negative for: L CVA Tenderness, R CVA Tenderness Extremity: Positive for: Normal ROM. Negative for: Tenderness, Pedal Edema, Calf Tenderness, Deformity, Swelling Neurologic/Psych: Positive for: Alert, cardiac technician II-XII, Oriented, Mood/Affect (calm) , Cerebellar Tests (nml). Negative for: Motor/Sensory Deficits, Aphasia, Facial Droop - Laboratory Results Result Diagrams: 04/02/17 11:30 04/02/17 11:30 - ECG ECG: Positive for: Interpreted By Me ECG Rhythm: Positive for: Normal QRS, Normal ST Segment, Sinus Rhythm. Negative for: ST/T Changes Interpretation Of Abn EKG: rate of 63, no evidence of ischemia, mildly morew prolonged qt compared to O2 Sat by Pulse Oximetry: 100 Pulse Ox Interpretation: Normal - Radiology X-Ray: Interpreted by Me X-Ray Interpretation: No Acute Disease - Progress ED Course And Treament: ct head unchnaged per pmd will admit to tele obs Re-evaluation Time: 15:00 Condition: Improved Disposition - Clinical Impression Clinical Impression: Closed head injury, Near syncope - Patient ED Disposition Is Patient to be Admitted: Yes Counseled Patient/Family Regarding: Studies Performed, Diagnosis - Disposition Disposition Time: 14:30 Condition: STABLE Forms: [employer] ([place]) - Pt Status Changed To: Hospital Disposition Of: Observation - POA Present On Arrival: None
[2017-04-02 11:50] LABS: ALB/GLOB RATIO 1.8 (1.0-2.1); ALCOHOL SERUM < 10 mg/dl (0-10); ALKALINE PHOSPHATASE 82 U/L (38-126); ALT/SGPT 31 U/L (21-72); AST/SGOT 25 U/L (17-59); BILIRUBIN,TOTAL 0.5 mg/dl (0.2-1.3); BLOOD UREA NITROGEN 16 mg/dl (9-20); CALCIUM 9.5 mg/dL (8.4-10.2); CARBON DIOXIDE 25 mmol/L (22-30); CHLORIDE 106 mmol/L (98-107); GFR AFRICAN-AMERICAN > 60; GLUCOSE,RANDOM 100 mg/dL (75-110); LIPASE 78 U/L (23-300); POTASSIUM 4.6 MMOL/L (3.6-5.0); SODIUM 143 mmol/l (132-148); TOTAL PROTEIN 6.8 G/DL (6.3-8.2)
[2017-04-02 11:54] LABS: PARTIAL THROMBOPLASTIN TIME 26.7 Seconds (25.6-37.1)
[2017-04-02 12:13] LABS: RBC URINE 2 /hpf (0-3); URINE BACTERIA RARE (<OCC); URINE BILIRUBIN NEGATIVE (NEGATIVE); URINE BLOOD NEGATIVE (NEGATIVE); URINE COLOR YELLOW (YELLOW); URINE GLUCOSE (UA) NEG (Normal); URINE KETONE NEGATIVE (NEGATIVE); URINE LEUKOCYTE ESTERASE NEG Leu/uL (Negative); URINE PROTEIN 30 mg/dL (NEGATIVE); URINE UROBILINOGEN 0.2-1.0 mg/dL (0.2-1.0); WBC URINE 1 /hpf (0-5)
--- NOTE | 2017-04-02 12:36 | CARD ---
APPROVED REPORT EKG Measurement Heart [id number] <Conclusion> Sinus rhythm with marked sinus arrhythmia Otherwise normal ECG
--- NOTE | 2017-04-02 14:45 | CT ---
PROCEDURE: CT scan brain dated 04/02/2017 HISTORY: Trauma. COMPARISON: Comparison made with prior study 09/27/2016 TECHNIQUE: Axial computed tomography images were obtained through the head/brain without intravenous contrast. Radiation dose: Total exam DLP = 791.23 mGy-cm. This CT exam was performed using one or more of the following dose reduction techniques: Automated exposure control, adjustment of the mA and/or kV according to patient size, and/or use of iterative reconstruction technique. FINDINGS: HEMORRHAGE: No acute parenchymal, subarachnoid or extra-axial hemorrhage. BRAIN: Re- demonstrated is a chronic right anterolateral basal ganglia infarct and mild diffuse/ confluent chronic white matter ischemic changes extend peripherally into the deep and to a lesser degree subcortical white matter both cerebral hemispheres. Additionally, there is also chronic infarct in the left parasagittal mid-inferior alexandra. Moderate generalized volume loss Mild vascular calcifications. VENTRICLES: No evidence of obstructive hydrocephalus CALVARIUM: No acute calvarial fracture seen. PARANASAL SINUSES: Minor mucosal thickening noted within right chamber sphenoid sinus MASTOID AIR CELLS: Unremarkable as visualized. No inflammatory changes. OTHER FINDINGS: None. IMPRESSION: No acute intracranial hemorrhage. Chronic right basal ganglia, left parasagittal mid mid-inferior alexandra
--- NOTE | 2017-04-02 15:00 | RAD ---
PROCEDURE: CHEST RADIOGRAPH, 1 VIEW HISTORY: syncope COMPARISON: 09/25/2016. FINDINGS: LUNGS: Clear. PLEURA: No pneumothorax or pleural fluid seen. CARDIOVASCULAR: No radiographic findings to suggest acute or significant cardiovascular disease. OSSEOUS STRUCTURES: No significant abnormalities. VISUALIZED UPPER ABDOMEN: Normal. OTHER FINDINGS: None. IMPRESSION: No active disease. No acute/significant interval changes. Concordant results with the preliminary interpretation rendered by the emergency department physician procedure.
[2017-04-02] MEDS ORDERED: POTASSIUM GLUCONATE PO SCH (17:15)
[2017-04-02] MEDS: Pantoprazole 40 mg EC Tab PO SCH (17:38)
--- NOTE | 2017-04-03 01:44 | CON ---
DATE OF ADMISSION: 04/02/2017 ATTENDING PHYSICIAN: Tres Parker MD LOCATION: Room #402, bed 1. REASON FOR THE CONSULTATION: Syncopal attack. CHIEF COMPLAINT: The patient was brought in by EMT with a history of syncopal attack. From neurologic point of view, I was called in to evaluate him for further management. HISTORY OF PRESENT ILLNESS: Mr. Dustin Mills is a 76-year-old, who is known to me from his previous hospitalization, who succumbed stroke in cortical region as well as brain stem region, been treated, sent to rehabilitation. Following that, he did have visit with me as an outpatient for followup. His medication been titrated for stroke prevention. He has been doing well. This morning, he woke up fine, on his way to go his library in front of the house where he was turning around, suddenly he felt dizzy, lightheaded, next he dropped on the floor. He denies loss of consciousness. No history of involuntary movements. No history bowel and bladder incontinence at the scene. Immediately, he was laid on the floor and hit his left eyebrow on the concrete. 911 was called. He was brought in to [facility]. At present, he denies headache. No visual or vulvar dysfunction. He denies any focal weakness except posttraumatic pain over his left orbit. PAST MEDICAL HISTORY: Stroke, hypertension, and dyslipidemia. ALLERGIES: NO KNOWN ALLERGIES. REVIEW OF SYSTEMS: A 16-point systems been reviewed. From neurological point, the patient does have syncopal attack. MEDICATIONS: Coreg, aspirin, iron supplement, Flomax, Lipitor, and timolol. PHYSICAL EXAMINATION: VITAL SIGNS: Blood pressure 158/74, mean arterial pressure 102, respiratory rate is 16, and temperature is 97.9, pulse rate 79, regular. NECK: Supple. No carotid bruits. HEART: Sounds regular. CHEST: Fair air entry. EXTREMITIES: No edema in legs. HEENT: Examination of the face, left orbital laceration with ecchymosis in the inferior lid. No raccoon eye. No stubbs sign. No CSF rhinorrhea in his nose as well as ear. NEUROLOGIC/MENTAL STATUS EXAMINATION: He is back to his baseline. He is awake, alert, oriented to person, place and time. Speech is clear. CRANIAL NERVE EXAMINATION: Visual field is intact. Pupils reactive to light. Extraocular movement normal. No nystagmus. No facial sensory deficit. No facial asymmetry. Hearing is normal. Tongue is midline and good gag. MOTOR EXAMINATION: Outstretched hand with eyes closed, no drift is noted. Power is symmetric on either side DEEP TENDON REFLEXES: Right-sided hyperreflexia to compare with left side. Deep tendon reflexes left side was equivocal, responsive. SENSORY EXAMINATION: No cortical sensory loss. COORDINATION: [id number] test is intact. WORKUP: CT of the head reviewed, showed encephalomalacia over right basal ganglia region adjacent to anterior limb of internal capsule. The patient also showed some encephalomalacia over the left upper alexandra. EKG, normal sinus rhythm. BLOOD WORKUP: WBC 3.8, hemoglobin 11.8, hematocrit 35.9, and platelets 211. PT 12.0, INR 1.2, PTT 26.7. Sodium 143, potassium 4.6, chloride 106, BUN 16, creatinine 1.3, GFR more than 60. Urine toxicology is negative. EKG, normal sinus rhythm. I would like put him back on stroke prophylactic medication, which he has been taking, aspirin, Plavix, angiotensin-receptor blockers, and statin. His presentation of syncopal attack, possible vertebrobasilar insufficiency versus cardiogenic cause. RECOMMENDATION: 1. No further workup is needed from neurological point of view. I would like to keep the medication as recommended. 2. In the meantime, cardiology consult also recommended to see if any cardiac cause could be explained per his problem. Continue observation at present. The patient will be followed while he is in the hospital. Manny Thomas MD MTDMarie
[2017-04-03 06:43] LABS: T4 8.44 ug/dl (5.5-11.0)
[2017-04-03 06:46] LABS: TROPONIN I 0.017 ng/mL (0.00-0.120)
[2017-04-03 06:57] LABS: THYROID STIMULATING HORMONE 3.39 mIU/ML (0.46-4.68)
[2017-04-03] MEDS: Pantoprazole 40 mg EC Tab PO SCH (08:41)
[2017-04-03] MEDS: Dorzolamide 2% Ophth Soln OU SCH ×2 (08:42→17:23)
[2017-04-03] MEDS ORDERED: Patient's Own Med (Dorzolamide 2%/Timolol 0.5% [Cosopt 2%-0.5% Opht] 1 DROP) EACHEYE SCH (09:00)
--- NOTE | 2017-04-03 10:50 | CARD ---
APPROVED REPORT EKG Measurement Heart [id number] <Conclusion> Sinus bradycardia Otherwise normal ECG
--- NOTE | 2017-04-03 11:13 | HP ---
HISTORY OF PRESENT ILLNESS: The patient is a 76-year-old male who was admitted via the emergency room yesterday following a fall while he was walking around his neighborhood on his way to the library. He indicated that he was talking to a few friends and suddenly felt dizzy and fell and struck his head on the floor. He did not pass out and did not have any chest pains or palpitations. By the time he arrived in the hospital, he was feeling much better and still feels well as of this morning. PAST MEDICAL HISTORY: Cerebrovascular accident, hypertension, hyperlipidemia, prostate cancer in the past and bradycardia. FAMILY HISTORY: Non-revealing. SOCIAL HISTORY: He does not smoke or drink. REVIEW OF SYSTEMS: Essentially unremarkable. PHYSICAL EXAMINATION: GENERAL: The patient is alert and oriented, appears to be in no apparent distress as of this morning. VITAL SIGNS: Remarkable for blood pressure of 116/67, pulse of 50, respiratory rate 18. He is afebrile. O2 saturation is 99% on room air. SKIN: Shows fair turgor. HEENT: Pupils are equal and reactive to light and accommodation. He has a small laceration of the left forehead which started bleeding and appears to be superficial. Mouth shows fair hygiene. LUNGS: Clear. HEART: Regular. Rate of 60 per minute. No murmurs or gallops appreciated. ABDOMEN: Soft. Nontender. No organomegaly. EXTREMITIES: Shows no edema or cyanosis. GENITAL AND RECTAL: Normal. CENTRAL NERVOUS SYSTEM: Grossly intact with no gross neuro deficits. LABORATORY DATA: WBC of 3.8, hemoglobin 11.8, platelet count 211,000. Sodium 143, potassium 4.6, BUN of 16, creatinine of 1.3. Troponin less than 0.012. Triglyceride 130, cholesterol 112, HDL 24, LDL of 64, G4 of 8.4, TSH 3.39. DIAGNOSTIC STUDIES: Chest x-ray, no acute cardiopulmonary pathology. EKG, sinus rhythm with marked sinus arrhythmia, otherwise normal EKG. CT scan of the brain, no acute intracranial pathology noted, chronic right basal ganglia, left parasagittal and mid inferior alexandra, ischemic changes. 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 PLAN: Monitor the patient in telemetry. Neurology evaluation already completed, and no further neurology workup indicated. With cardiac evaluation, if the patient is cleared by cardiology, we will discharge, and followup as an outpatient. Tres Parker MD
--- NOTE | 2017-04-03 11:21 | US ---
PROCEDURE: Duplex ultrasound of the carotid and vertebral arteries. HISTORY: near syncope COMPARISON: None available. TECHNIQUE: Grayscale and duplex Doppler evaluation of the cervical carotid and vertebral arteries were performed. The common carotid, carotid bifurcations and cervical ICA and proximal ECA were evaluated. The vertebral arteries were evaluated for gross patency and direction. FINDINGS: There are calcified and noncalcified atherosclerotic plaques in the carotid bulbs and proximal internal carotid arteries. RIGHT CAROTID ARTERIES: Common Carotid Artery: Normal. Maximal flow velocity of 105.2 cm/s. Carotid Bifurcation: Normal. Internal Carotid Artery:Normal. Maximal flow velocity of 110.5 cm/s. External Carotid Artery (proximal branches): Elevated peak systolic velocity. Maximal flow velocity of 181.6 cm/s. ICA/CCA Ratio: 1.1 LEFT CAROTID ARTERIES: Common Carotid Artery: Normal. Maximal flow velocity of 113.6 cm/s. Carotid Bifurcation: Normal. Internal Carotid Artery:Normal. Maximal flow velocity of 125.1 cm/s. External Carotid Artery (proximal branches): Elevated peak systolic velocity. Maximal flow velocity of 185.7 cm/s. ICA/CCA Ratio: 1.1 VERTEBRAL ARTERIES: Right Vertebral Artery: Patent. Antegrade flow. Left Vertebral Artery: Patent. Antegrade flow. OTHER FINDINGS: None. IMPRESSION: 1. No evidence of hemodynamically significant stenosis. Less than 50 percent stenosis in the left internal carotid artery. 2. Elevated peak systolic velocities in the external carotid arteries.
--- NOTE | 2017-04-03 21:15 | CP.PCM.CON ---
History of Present Illness - History of Present Illness History of Present Illness: PT W MULTIPLE NEAR SYNCOPAL EVENTS. 1ST EPISODE WAS CAUSED BY DIURETIC THERAPY PER THE PTS . THE EPISODE PRIOR TO THIS ADMISSION WAS DESCRIBED HINSON, FOLLOWED BY LIGHTHEADEDNESS AND WEAKNESS THEN FALL. NO LOC, NO SZ, NO INCONTINENCE. DENIES CP, PALP, ORTHOPNEA, PND, REMY. PT DID SUFFER HEAD TRAUMA. HE DOES HAVE HTN AND DYSLIPIDEMIA, NO HX OF KNOWN CAD. NO PRIOR CATH OR STRESS TEST. ON ASA AT HOME. WAS ON COREG 6.25MG BID. UPON ADMISSION PT WAS BORDERLINE HYPOTENSIVE AND ONELIA. Review of Systems - Constitutional Constitutional: As Per HPI, Weakness. absent: Anorexia, Chills, Daytime Sleepiness, Excessive Sweating, Fatigue, Fever, Frequent Falls, Headache, Increased Appetite, Lethargy, Malaise, Night Sweats, Snoring, Sleep Apnea, Weight Gain, Weight Loss, Other - EENT Eyes: As Per HPI. absent: Blind Spots, Blurred Vision, Change in Vision, Decreased Night Vision, Diplopia, Discharge, Dry Eye, Exophthalmos, Floaters, Irritation, Itchy Eyes, Loss of Peripheral Vision, Pain, Photophobia, Requires Corrective Lenses, Sees Flashes, Spots in Vision, Tunnel Vision, Other Visual Disturbances, Loss of Vision, Other Ears: As Per HPI. absent: Decreased Hearing, Ear Discharge, Ear Pain, Tinnitus , Abnormal Hearing, Disequilibrium, Dizziness, Other Nose/Mouth/Throat: As Per HPI. absent: Epistaxis, Nasal Congestion, Nasal Discharge, Nasal Obstruction, Nasal Trauma, Nose Pain, Post Nasal Drip, Sinus Pain, Sinus Pressure, Bleeding Gums, Change in Voice, Dental Pain, Dry Mouth, Dysphagia, Halitosis, Hoarsness, Lip Swelling, Mouth Lesions, Mouth Pain, Odynophagia, Sore Throat, Throat Swelling, Tongue Swelling, Facial Pain, Neck Pain, Neck Mass, Other - Cardiovascular Cardiovascular: As Per HPI, Dyspnea on Exertion, Lightheadedness. absent: Acrocyanosis, Chest Pain, Chest Pain at Rest, Chest Pain with Activity, Claudication, Diaphoresis, Dyspnea, Edema, Irregular Heart Rhythm, Pain Radiating to Arm/Neck/Jaw, Leg Edema, Leg Ulcers, Orthopnea, Palpitations, Paroxysmal Nocturnal Dyspnea, Pedal Edema, Radiating Pain, Rapid Heart Rate, Slow Heart Rate, Syncope, Other - Respiratory Respiratory: As Per HPI. absent: Cough, Dyspnea, Hemoptysis, Dyspnea on Exertion, Wheezing, Snoring, Stridor, Pain on Inspiration, Chest Congestion, Excessive Mucous Production, Change in Mucous Color, Pain with Coughing, Other - Gastrointestinal Gastrointestinal: As Per HPI. absent: Abdominal Pain, Belching, Bloating, Change in Bowel Habits, Change in Stool Character, Coffee Ground Emesis, Constipation, Cramping, Diarrhea, Dyspepsia, Dysphagia, Early Satiety, Excessive Flatus, Fecal Incontinence, Heartburn, Hematemesis, Hematochezia, Loose Stools, Melena, Nausea, Odynophagia, Temesmus, Vomiting, Other - Genitourinary Genitourinary: As Per HPI. absent: Change in Urinary Stream, Difficulty Urinating, Dysuria, Flank Pain, Hematuria, Pyuria, Nocturia, Urinary Incontinence, Urinary Frequency, Urinary Hesitance, Urinary Urgency, Voiding Freq/Small Amts, Freq UTI, Hx Renal/Bladder Calculi, Hx /Renal Surgery, Bladder Distension, Other - Reproductive: Male Reproductive:Male: As Per HPI - Musculoskeletal Musculoskeletal: As Per HPI. absent: Abnormal Gait, Arthralgias, Atrophy, Back Pain, Deformity, Joint Swelling, Limited Range of Motion, Loss of Height, Muscle Cramps, Muscle Weakness, Myalgias, Neck Pain, Numbness, Radiating Pain into Limb, Stiffness, Tingling, Other - Integumentary Integumentary: As Per HPI. absent: Acne, Alopecia, Bleeding Lesions, Change in Hair, Change in Nails, Change in Pigmentation, Changing Lesions, Dry Skin, Erythema, Furuncle, Hirsutism, Lesions, New Lesions, Non-Healing Lesions, Photosensitivity, Pruritus, Rash, Skin Pain, Skin Ulcer, Sores, Striae, Swelling , Unusual Bruising, Wounds, Jaundice, Other - Neurological Neurological: As Per HPI. absent: Abnormal Gait, Abnormal Hearing, Abnormal Movements, Abnormal Speech, Behavioral Changes, Burning Sensations, Confusion, Convulsions, Disequilibrium, Dizziness, Numbness, Focal Weakness, Frequent Falls , Headaches, Lack of Coordination, Loss of Vision, Memory Loss, Paresthesias, Radicular Pain, Restless Legs, Sensory Deficit, Syncope, Tingling, Tremor, Vertigo, Weakness, Other Visual Disturbances, Other - Psychiatric Psychiatric: As Per HPI. absent: Abnormal Sleep Pattern, Anhedonia, Anxiety, Auditory Hallucinations, Behavioral Changes, Change in Appetite, Change in Libido, Confusion, Depression, Difficulty Concentrating, Hallucinations, Homicidal Ideation, Hopelessness, Irritability, Memory Loss, Mood Swings, Panic Attacks, Paranoia, Suicidal Ideation, Visual Hallucinations, Tactile Hallucinations, Other - Endocrine Endocrine: As Per HPI. absent: Change in Body Appearance, Change in Libido, Cold Intolorance, Deepening of Voice, Excessive Sweating, Fatigue, Flushing, Heat Intolorance, Increase in Ring/Shoe/Hat Size, Palpitations, Polydipsia, Polyphagia, Polyuria, Other - Hematologic/Lymphatic Hematologic: As Per HPI Past Patient History - Past Medical History & Family History Past Medical History?: Yes - Past Social History Smoking Status: Former Smoker Chewing Tobacco Use: No Cigar Use: No Alcohol: None Drugs: Denies Home Situation {Lives}: With Family Domestic Violence: Negative - CARDIAC Hx Hypercholesterolemia: Yes Hx Hypertension: Yes - PULMONARY Hx Respiratory Disorders: No - NEUROLOGICAL Hx Neurological Disorder: No HX Cerebrovascular Accident: Yes (09/25/16) Hx Syncope: Yes (more than 3 months ago) Other/Comment: CVA 09/25/16 - HEENT Hx HEENT Problems: No - RENAL Hx Chronic Kidney Disease: No - ENDOCRINE/METABOLIC Hx Endocrine Disorders: No - HEMATOLOGICAL/ONCOLOGICAL Hx Anemia: Yes Hx Human Immunodeficiency Virus (HIV): No - INTEGUMENTARY Hx Dermatological Problems: No - MUSCULOSKELETAL/RHEUMATOLOGICAL Hx Falls: No - GASTROINTESTINAL Hx Gastrointestinal Disorders: No Other/Comment: Hernia surgery 3-4 yrs ago - GENITOURINARY/GYNECOLOGICAL Hx Prostate Cancer: Yes - PSYCHIATRIC Hx Substance Use: No - SURGICAL HISTORY Hx Surgeries: Yes Hx Appendectomy: Yes Hx Herniorrhaphy: Yes (hernia repair) Other/Comment: colonscopy, polyps removal - ANESTHESIA Hx Anesthesia: Yes Hx Anesthesia Reactions: No Hx Malignant Hyperthermia: No Has any member of the family had a problem w/ anesthesia?: No Meds Allergies/Adverse Reactions: Allergies Allergy/AdvReac Type Severity Reaction Status Date / Time Penicillins Allergy HEADACHE Verified 09/30/16 14:09 - Medications Medications: Current Medications Aspirin (Ecotrin) 81 mg PO QPM [facility] Last Admin: 04/03/17 17:22 Dose: 81 mg Atorvastatin Calcium (Lipitor) 20 mg PO HS [facility] Last Admin: 04/02/17 21:25 Dose: 20 mg Clopidogrel Bisulfate (Plavix) 75 mg PO DAILY [facility] Last Admin: 04/03/17 08:41 Dose: 75 mg Dorzolamide HCl (Trusopt) 1 drop OU BID [facility] Last Admin: 04/03/17 17:23 Dose: 1 drop Ferrous Sulfate (Feosol) 325 mg PO BID [facility] Last Admin: 04/03/17 17:22 Dose: 325 mg Pantoprazole Sodium (Protonix Ec Tab) 40 mg PO DAILY [facility] Last Admin: 04/03/17 08:41 Dose: 40 mg Ramipril (Altace) 5 mg PO DAILY [facility] Last Admin: 04/03/17 11:22 Dose: 5 mg Tamsulosin HCl (Flomax) 0.4 mg PO HS [facility] Last Admin: 04/02/17 21:25 Dose: 0.4 mg Timolol Maleate (Timoptic 0.5% Ophth Soln) 1 drop OU BID [facility] Last Admin: 04/03/17 17:22 Dose: 1 drop Physical Exam - Constitutional Appears: Non-toxic - Head Exam Head Exam: ATRAUMATIC, NORMAL INSPECTION, NORMOCEPHALIC - Eye Exam Eye Exam: EOMI, Normal appearance, PERRL. absent: Conjunctival injection, Nystagmus, Periorbital swelling, Periorbital tenderness, Scleral icterus Pupil Exam: NORMAL ACCOMODATION, PERRL. absent: Fixed, Irregular, Miosis, Mydriatic, Unequal - ENT Exam ENT Exam: Mucous Membranes Moist, Normal Exam. absent: Mucous Membranes Dry, Normal External Ear Exam, Normal Oropharynx, TM's Normal Bilaterally - Neck Exam Neck exam: Positive for: Normal Inspection. Negative for: Full Rom, Lymphadenopathy, Meningismus, Tenderness, Thyromegaly - Respiratory Exam Respiratory Exam: Clear to Auscultation Bilateral, NORMAL BREATHING PATTERN. absent: Accessory Muscle Use, Chest Wall Tenderness, Decreased Breath Sounds, Prolonged Expiratory Phase, Rales, Rhonchi, Wheezes, Respiratory Distress, Stridor - Cardiovascular Exam Cardiovascular Exam: REGULAR RHYTHM, +S1, +S2, Systolic Murmur. absent: Bradycardia, Tachycardia, Clicks, Diastolic murmur, Gallop, Irregular Rhythm, JVD, RRR, Rubs, +S4 - GI/Abdominal Exam GI & Abdominal Exam: Normal Bowel Sounds, Soft. absent: Bruit, Diminished Bowel Sounds, Distended, Firm, Guarding, Hernia, Hyperactive Bowel Sounds, Hypoactive Bowel Sounds, Mass, Organomegaly, Pulsatile Mass, Rebound, Rigid, Tenderness - Rectal Exam Rectal Exam: Deferred - Extremities Exam Extremities exam: Positive for: normal inspection. Negative for: calf tenderness, full ROM, joint swelling, normal capillary refill, pedal edema, tenderness, pedal pulses present - Back Exam Back exam: NORMAL INSPECTION. absent: CVA tenderness (L), CVA tenderness (R), FULL ROM, muscle spasm, paraspinal tenderness, rash noted, tenderness, vertebral tenderness - Neurological Exam Neurological exam: Alert, CN II-XII Intact, Normal Gait, Oriented x3, Reflexes Normal - Psychiatric Exam Psychiatric exam: Normal Affect, Normal Mood - Skin Skin Exam: Dry, Intact, Normal Color, Warm Results - Vital Signs Recent Vital Signs: Last Vital Signs Temp 98.4 F 04/03/17 20:02 Pulse 56 L 04/03/17 20:02 Resp 16 04/03/17 20:02 BP 122/67 04/03/17 20:02 Pulse Ox 98 04/03/17 20:02 - Labs Result Diagrams: 04/02/17 11:30 04/02/17 11:30 Labs: Laboratory Results - last 24 hr 04/02/17 04/02/17 04/03/17 11:05 21:26 05:00 POC Glucose (mg/dL) 102 Troponin I 0.0180 0.0170 Triglycerides 130 D Cholesterol 112 LDL Cholesterol Direct 64 HDL Cholesterol 24 L Thyroxine (T4) 8.44 Total T3 1.08 L TSH 3rd Generation 3.39 - EKG Data EKG Interpreted by: Myself EKG shows normal: Sinus rhythm Rate: Normal Assessment & Plan (1) Low BP Status: Acute (2) Bradycardia Status: Acute (3) HINSON (dyspnea on exertion) Status: Acute (4) Near syncope Status: Acute (5) Essential (primary) hypertension Status: Acute - Assessment and Plan (Free Text) Plan: PTS NEAR SYNCOPE MAY BE A RESULT OF BRADYCARDIA DUE TO COREG. HOWEVER PT DOES HAVE HINSON AND THIS IS HIS 2ND EPISODE OF NEAR SYNCOPE. ECHO RESULTED WNL. I RECOMMEND AN EXERCISE NUCLEAR ST TO ASSESS FOR ISCHEMIA AND FOR CHRONOTROPIC RESPONSE. WOULD D/C ALL RATE CONTROLLING AGENTS. WILL CHANGE PT TO RAMIPRIL FOR HIS HTN. BP NOW STABLE. CHECKTHROID FUNCTION GIVEN ONELIA. CHECK LYTES. WILL NEED OUTPT F/U. IF THESE EPISODES CONTINUE WILL NEED HOLTER, AND POSSIBLY TILT TABLE TESTING. 75 MIN TOTAL CARE TIME.
--- NOTE | 2017-04-03 21:58 | PN ---
DATE OF EVALUATION: 04/03/2017 NEUROLOGIC PROBLEM: Post-concussion syndrome. PHYSICAL EXAMINATION: VITAL SIGNS: Blood pressure 110/72, mean arterial pressure of 84, respiratory rate is 16, temperature 98.6. The patient was examined in the presence of his . The current examination does not show any new long tract sign besides his right hemiparesis. The patient's workup, CBC is normal. A carotid Doppler was done, which does not show any significant stenosis. Because of the syncopal attack and strong cardiac history, the patient was requested to have a cardiology consult, which is still pending. Following cardiology consult, if he is cleared from cardio, the patient can be discharged and should have a followup with me as an outpatient. Manny Thomas MD
[2017-04-04 06:13] LABS: HEMATOCRIT 33.1 % (35.0-51.0); MEAN CELL VOLUME 91.9 fl (80.0-94.0); MEAN CORPUSCULAR HEMOGLOBIN 29.6 pg (27.0-31.0); MEAN CORPUSCULAR HGB CONC 32.2 g/dL (33.0-37.0); RED CELL DISTRIBUTION WIDTH 14.4 % (11.5-14.5); WHITE BLOOD COUNT 3.9 K/uL (4.8-10.8)
[2017-04-04 06:23] LABS: BLOOD UREA NITROGEN 23 mg/dl (9-20); CALCIUM 9.1 mg/dL (8.4-10.2); CARBON DIOXIDE 24 mmol/L (22-30); CHLORIDE 107 mmol/L (98-107); GFR AFRICAN-AMERICAN > 60; GLUCOSE,RANDOM 92 mg/dL (75-110); MAGNESIUM 2.1 MG/DL (1.6-2.3); POTASSIUM 4.2 MMOL/L (3.6-5.0); SODIUM 143 mmol/l (132-148)
--- NOTE | 2017-04-04 11:50 | CARD ---
APPROVED REPORT EXAM: Two-dimensional and M-mode echocardiogram with Doppler and color Doppler. Other Information Quality : GoodRhythm : NSR INDICATION Chest Pain 2D DIMENSIONS IVSd1.25 (0.7-1.1cm)LVDd4.44 (3.9-5.9cm) LVOT Diameter2.30 (1.8-2.4cm)PWd1.15 (0.7-1.1cm) IVSs1.54 (0.8-1.2cm)LVDs3.11 (2.5-4.0cm) FS (%) 30.0 %PWs1.32 (0.8-1.2cm) M-Mode DIMENSIONS Left Atrium (MM)4.26 (2.5-4.0cm)IVSd1.29 (0.7-1.1cm) Aortic Root3.35 (2.2-3.7cm)LVDd5.24 (4.0-5.6cm) Aortic Cusp Exc.1.85 (1.5-2.0cm)PWd1.15 (0.7-1.1cm) IVSs1.50 cmFS (%) 46 % LVDs2.82 (2.0-3.8cm)PWs1.79 cm Mitral Valve MV E Hgxdhisf02.8cm/sMV DECEL [id number] A Hlqdnzbm48.0cm/s MV GVU05llM/A ratio1.1MVA (PHT)3.33cm2 TDI Lateral E' Peak V7.25cm/sMedial E' Peak V7.58cm/sE/Lateral E'8.8 E/Medial E'8.4 Pulmonary Valve PV Peak Arysmhar320.8cm/s Tricuspid Valve TR Peak Qmifzqvg769nl/sRAP [id number] Peak Gr.19mmHg [id number] LEFT VENTRICLE The left ventricle is normal size. There is normal left ventricular wall thickness. The left ventricular function is normal. The left ventricular ejection fraction is within the normal range. The Ejection Fraction is 60-65%. There is normal LV segmental wall motion. The left ventricular diastolic function is normal. No left ventricle thrombus noted on this study. There is no mass noted in the left ventricle. RIGHT VENTRICLE The right ventricle is normal size. There is normal right ventricular wall thickness. The right ventricular systolic function is normal. ATRIA The left atrium size is normal. The right atrium size is normal. The interatrial septum is intact with no evidence for an atrial septal defect. AORTIC VALVE The aortic valve is normal in structure and function. No aortic regurgitation is present. There is no aortic valvular stenosis. There is no aortic valvular vegetation. MITRAL VALVE The mitral valve is normal in structure and function. There is no evidence of mitral valve prolapse. There is no mitral valve stenosis. Mitral regurgitation is mild. TRICUSPID VALVE The tricuspid valve is normal in structure and function. There is no tricuspid valve regurgitation noted. There is no tricuspid valve prolapse or vegetation. There is no tricuspid valve stenosis. PULMONIC VALVE The pulmonary valve is normal in structure and function. There is no pulmonic valvular regurgitation. There is no pulmonic valvular stenosis. GREAT VESSELS The aortic root is normal in size. The IVC is normal in size and collapses >50% with inspiration. PERICARDIAL EFFUSION The pericardium appears normal. There is no pleural effusion. <Conclusion> The left ventricle is normal size. The left ventricular function is normal. The left ventricular ejection fraction is within the normal range. The Ejection Fraction is 60-65%. Mitral regurgitation is mild.
[2017-04-04] MEDS: Pantoprazole 40 mg EC Tab PO SCH (11:59)
[2017-04-04] MEDS: Dorzolamide 2% Ophth Soln OU SCH (12:00)
--- NOTE | 2017-04-04 13:28 | CP.PCM.PN ---
Subjective - Date & Time of Evaluation Date of Evaluation: 04/04/17 Time of Evaluation: 13:28 - Subjective Subjective: no complaints no recurrence of near syncope Objective - Vital Signs/Intake and Output Vital Signs (last 24 hours): Temp Pulse Resp BP Pulse Ox 97.3 F L 57 L 18 154/53 H 100 04/04/17 12:00 04/04/17 12:00 04/04/17 12:00 04/04/17 12:00 04/04/17 12:00 - Medications Medications: Current Medications Aspirin (Ecotrin) 81 mg PO QPM [facility] Last Admin: 04/03/17 17:22 Dose: 81 mg Atorvastatin Calcium (Lipitor) 20 mg PO HS [facility] Last Admin: 04/03/17 22:04 Dose: 20 mg Clopidogrel Bisulfate (Plavix) 75 mg PO DAILY [facility] Last Admin: 04/04/17 11:59 Dose: 75 mg Dorzolamide HCl (Trusopt) 1 drop OU BID [facility] Last Admin: 04/04/17 12:00 Dose: 1 drop Ferrous Sulfate (Feosol) 325 mg PO BID [facility] Last Admin: 04/04/17 11:58 Dose: 325 mg Finasteride (Proscar) 5 mg PO DAILY [facility] Last Admin: 04/04/17 12:00 Dose: 5 mg Pantoprazole Sodium (Protonix Ec Tab) 40 mg PO DAILY [facility] Last Admin: 04/04/17 11:59 Dose: 40 mg Ramipril (Altace) 5 mg PO DAILY [facility] Last Admin: 04/04/17 11:59 Dose: 5 mg Timolol Maleate (Timoptic 0.5% Ophth Soln) 1 drop OU BID [facility] Last Admin: 04/04/17 08:54 Dose: 1 drop - Labs Labs: 04/04/17 05:30 04/04/17 05:30 PT 12.0 Seconds (9.8-13.1) 04/02/17 11:30 INR 1.2 (0.9-1.2) 04/02/17 11:30 APTT 26.7 Seconds (25.6-37.1) 04/02/17 11:30 - Constitutional Appears: Well, No Acute Distress - Head Exam Head Exam: ATRAUMATIC, NORMAL INSPECTION, NORMOCEPHALIC - Eye Exam Eye Exam: EOMI, Normal appearance, PERRL Pupil Exam: NORMAL ACCOMODATION, PERRL - ENT Exam ENT Exam: Mucous Membranes Moist, Normal Exam - Neck Exam Neck Exam: Full ROM, Normal Inspection. absent: Lymphadenopathy - Respiratory Exam Respiratory Exam: Clear to Ausculation Bilateral, NORMAL BREATHING PATTERN - Cardiovascular Exam Cardiovascular Exam: REGULAR RHYTHM, +S1, +S2. absent: Murmur - GI/Abdominal Exam GI & Abdominal Exam: Soft, Normal Bowel Sounds. absent: Tenderness - Rectal Exam Rectal Exam: NORMAL INSPECTION - Extremities Exam Extremities Exam: Full ROM, Normal Capillary Refill, Normal Inspection. absent : Joint Swelling, Pedal Edema - Back Exam Back Exam: NORMAL INSPECTION - Neurological Exam Neurological Exam: Alert, Awake, CN II-XII Intact, Normal Gait, Oriented x3 - Psychiatric Exam Psychiatric exam: Normal Affect, Normal Mood - Skin Skin Exam: Dry, Intact, Normal Color, Warm Assessment and Plan - Assessment and Plan (Free Text) Assessment: near syncope bradycardia hx of cva htn Plan: for stress thall today d/c home if stress test is non-revealing and continue out pt eval
--- NOTE | 2017-04-04 13:33 | CP.PCM.DIS ---
Provider - Provider Date of Admission: 04/03/17 20:33 Attending physician: Tres Pressley MD Time Spent in preparation of Discharge (in minutes): 30 Diagnosis - Discharge Diagnosis (1) Bradycardia Status: Acute (2) Closed head injury Status: Acute (3) HINSON (dyspnea on exertion) Status: Acute (4) Near syncope Status: Acute (5) Anemia Status: Acute (6) Cerebrovascular accident Status: Acute (7) Essential (primary) hypertension Status: Acute Hospital Course - Lab Results Lab Results: Most Recent Lab Values WBC 3.9 K/uL (4.8-10.8) L 04/04/17 05:30 RBC 3.60 Mil/uL (4.40-5.90) L 04/04/17 05:30 Hgb 10.6 g/dL (12.0-18.0) L 04/04/17 05:30 Hct 33.1 % (35.0-51.0) L 04/04/17 05:30 MCV 91.9 fl (80.0-94.0) 04/04/17 05:30 MCH 29.6 pg (27.0-31.0) 04/04/17 05:30 MCHC 32.2 g/dL (33.0-37.0) L 04/04/17 05:30 RDW 14.4 % (11.5-14.5) 04/04/17 05:30 Plt Count 172 K/uL (130-400) 04/04/17 05:30 MPV 8.5 fl (7.2-11.7) 04/02/17 11:30 Neut % (Auto) 69.3 % (50.0-75.0) 04/02/17 11:30 Lymph % (Auto) 15.9 % (20.0-40.0) L 04/02/17 11:30 [place] % (Auto) 10.1 % (0.0-10.0) H 04/02/17 11:30 Eos % (Auto) 3.9 % (0.0-4.0) 04/02/17 11:30 Baso % (Auto) 0.8 % (0.0-2.0) 04/02/17 11:30 Neut # 2.6 K/uL (1.8-7.0) 04/02/17 11:30 Lymph # 0.6 K/uL (1.0-4.3) L 04/02/17 11:30 [place] # 0.4 K/uL (0.0-0.8) 04/02/17 11:30 Eos # 0.1 K/uL (0.0-0.7) 04/02/17 11:30 Baso # 0.0 K/uL (0.0-0.2) 04/02/17 11:30 PT 12.0 Seconds (9.8-13.1) 04/02/17 11:30 INR 1.2 (0.9-1.2) 04/02/17 11:30 APTT 26.7 Seconds (25.6-37.1) 04/02/17 11:30 Sodium 143 mmol/l (132-148) 04/04/17 05:30 Potassium 4.2 MMOL/L (3.6-5.0) 04/04/17 05:30 Chloride 107 mmol/L (98-107) 04/04/17 05:30 Carbon Dioxide 24 mmol/L (22-30) 04/04/17 05:30 Anion Gap 16 (10-20) 04/04/17 05:30 BUN 23 mg/dl (9-20) H 04/04/17 05:30 Creatinine 1.2 mg/dL (0.8-1.5) 04/04/17 05:30 Est GFR ( Amer) > 60 04/04/17 05:30 Est GFR (Non-Af Amer) 59 04/04/17 05:30 POC Glucose (mg/dL) 102 mg/dL (65-110) 04/02/17 11:05 Random Glucose 92 mg/dL (75-110) 04/04/17 05:30 Calcium 9.1 mg/dL (8.4-10.2) 04/04/17 05:30 Magnesium 2.1 MG/DL (1.6-2.3) 04/04/17 05:30 Total Bilirubin 0.5 mg/dl (0.2-1.3) 04/02/17 11:30 AST 25 U/L (17-59) 04/02/17 11:30 ALT 31 U/L (21-72) 04/02/17 11:30 Alkaline Phosphatase 82 U/L (38-126) 04/02/17 11:30 Troponin I 0.0170 ng/mL (0.00-0.120) 04/03/17 05:00 Total Protein 6.8 G/DL (6.3-8.2) 04/02/17 11:30 Albumin 4.4 g/dL (3.5-5.0) 04/02/17 11:30 Globulin 2.5 gm/dL (2.2-3.9) 04/02/17 11:30 Albumin/Globulin Ratio 1.8 (1.0-2.1) 04/02/17 11:30 Triglycerides 130 mg/DL (0-149) D 04/03/17 05:00 Cholesterol 112 mg/dL (0-199) 04/03/17 05:00 LDL Cholesterol Direct 64 mg/dL (0-129) 04/03/17 05:00 HDL Cholesterol 24 MG/DL (30-70) L 04/03/17 05:00 Lipase 78 U/L (23-300) 04/02/17 11:30 Free T4 1.10 ng/dL (0.78-2.19) 04/04/17 05:30 Thyroxine (T4) 8.44 ug/dl (5.5-11.0) 04/03/17 05:00 Total T3 1.04 nmol/L (1.49-2.60) L 04/04/17 05:30 TSH 3rd Generation 3.60 mIU/ML (0.46-4.68) 04/04/17 05:30 Urine Color Yellow (YELLOW) 04/02/17 12:00 Urine Clarity Slighty-cloudy (Clear) 04/02/17 12:00 Urine pH 6.0 (5.0-8.0) 04/02/17 12:00 Ur Specific [place] 1.019 (1.003-1.030) 04/02/17 12:00 Urine Protein 30 mg/dL (NEGATIVE) 04/02/17 12:00 Urine Glucose (UA) Neg mg/dL (Normal) 04/02/17 12:00 Urine Ketones Negative mg/dL (NEGATIVE) 04/02/17 12:00 Urine Blood Negative (NEGATIVE) 04/02/17 12:00 Urine Nitrate Negative (NEGATIVE) 04/02/17 12:00 Urine Bilirubin Negative (NEGATIVE) 04/02/17 12:00 Urine Urobilinogen 0.2-1.0 mg/dL (0.2-1.0) 04/02/17 12:00 Ur Leukocyte Esterase Neg [place]/uL (Negative) 04/02/17 12:00 Urine RBC (Auto) 2 /hpf (0-3) 04/02/17 12:00 Urine Microscopic WBC 1 /hpf (0-5) 04/02/17 12:00 Urine Bacteria Rare (<OCC) 04/02/17 12:00 Urine Opiates Screen Negative (NEGATIVE) 04/02/17 12:00 Urine Methadone Screen Negative (NEGATIVE) 04/02/17 12:00 Ur Barbiturates Screen Negative (NEGATIVE) 04/02/17 12:00 Ur Phencyclidine Scrn Negative (NEGATIVE) 04/02/17 12:00 Ur Amphetamines Screen Negative (NEGATIVE) 04/02/17 12:00 U Benzodiazepines Scrn Negative (NEGATIVE) 04/02/17 12:00 U Oth Cocaine Metabols Negative (NEGATIVE) 04/02/17 12:00 U Cannabinoids Screen Negative (NEGATIVE) 04/02/17 12:00 Alcohol, Quantitative < 10 mg/dl (0-10) 04/02/17 11:30 - Hospital Course Hospital Course: no recurrence of near syncope Discharge Exam - Head Exam Head Exam: ATRAUMATIC, NORMAL INSPECTION, NORMOCEPHALIC - Eye Exam Eye Exam: EOMI, Normal appearance, PERRL Pupil Exam: NORMAL ACCOMODATION, PERRL - GI/Abdominal Exam GI & Abdominal Exam: Normal Bowel Sounds - Rectal Exam Rectal Exam: NORMAL INSPECTION - Neurological Exam Neurological exam: Alert, CN II-XII Intact, Normal Gait, Oriented x3, Reflexes Normal - Psychiatric Exam Psychiatric exam: Normal Affect, Normal Mood - Skin Skin Exam: Dry, Intact, Normal Color, Warm Discharge Plan - Follow Up Plan Condition: STABLE Disposition: HOME/ ROUTINE Patient education suggested?: Yes Additional Instructions: follow up with dr pressley
--- NOTE | 2017-04-04 13:55 | PQF GENQUE ---
Dr. 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 Neuro consult: Imp.:.His presentation of syncopal attack, possible vertebrobasilar insufficiency versus cardiogenic cause and follow up progress note: NEUROLOGIC PROBLEM: Post- concussion syndrome, hemiparesis Cardiology consult: Cardio: W MULTIPLE NEAR SYNCOPAL EVENTS. 1ST EPISODE WAS CAUSED BY DIURETIC THERAPY PER THE PTS . THE EPISODE PRIOR TO THIS ADMISSION WAS DESCRIBED HINSON, FOLLOWED BY LIGHTHEADEDNESS AND WEAKNESS THEN FALL. NO LOC, NO SZ, . PT DID SUFFER HEAD TRAUMA. HE DOES HAVE HTN AND DYSLIPIDEMIA, NO HX OF KNOWN CAD ON ASA AT HOME. WAS ON COREG 6.25MG BID. UPON ADMISSION PT WAS BORDERLINE HYPOTENSIVE AND onelia 1) Low BP Status: Acute (2) Bradycardia : Acute (3) HINSON (dyspnea on exertion) Status: Acute (4) Near syncope Status: Acute (5) Essential (primary) hypertension Status: Acute PTS NEAR SYNCOPE MAY BE A RESULT OF BRADYCARDIA DUE TO COREG. HOWEVER PT DOES HAVE HINSON AND THIS IS HIS 2ND EPISODE OF NEAR SYNCOPE. ECHO RESULTED WNL. I RECOMMEND AN EXERCISE NUCLEAR ST TO ASSESS FOR ISCHEMIA AND FOR CHRONOTROPIC RESPONSE. WOULD D/C ALL RATE CONTROLLING AGENTS. WILL CHANGE PT TO RAMIPRIL FOR HIS HTN. BP NOW STABLE. CHECKTHROID FUNCTION GIVEN ONELIA. CHECK LYTES. WILL NEED OUTPT F/U. IF THESE EPISODES CONTINUE WILL NEED Total T3: 1.08->1.04 This form is a permanent part of the medical record Clarification of your documentation is requested to better reflect the severity of illness and intensity of treatment of your patient. Indicators present [x] Specify: []NEAR SYNCOPE-ETIOLOGY UNDETERMINED [] Specify: [] [] Specify: [] [] Specify: [] Location in the medical record that reflects the above clinical findings: [] Treatment Provided: [] PHYSICIAN'S RESPONSE Based on your medical judgment of the clinical indicators outlined above please clarify the following: [] Practitioner response [X] If unable to determine, please check the box, sign and date. Present On Admission (POA) Indicator: [] Present at the time of admission [] Not present at the time of admission [X] Clinically Undetermined In responding to this query, please exercise your independent professional judgment. The fact that a question is asked does not imply that any particular answer is desired or expected. Thank you for your clarification on this documentation. If you have any questions please call. * Thank you, Kaylie Yanez RN ext. #[phone]: Julia MAI
[2017-04-04 16:11] VITALS: BP 110/63; PULSE 58; RESP 14; TEMP 97.9; O2SAT 98
[2017-04-04 17:13] LABS: CORTISOL AM 8.4 ug/dL (4.46-22.7)
--- NOTE | 2017-04-04 17:44 | CP.PCM.PN ---
Objective - Vital Signs/Intake and Output Vital Signs (last 24 hours): Temp Pulse Resp BP Pulse Ox 97.9 F 58 L 14 110/63 98 04/04/17 16:10 04/04/17 16:10 04/04/17 16:10 04/04/17 16:10 04/04/17 16:10 - Medications Medications: Current Medications Aspirin (Ecotrin) 81 mg PO QPM COUNT INCLUDES THE [facility] Last Admin: 04/03/17 17:22 Dose: 81 mg Atorvastatin Calcium (Lipitor) 20 mg PO HS COUNT INCLUDES THE [facility] Last Admin: 04/03/17 22:04 Dose: 20 mg Clopidogrel Bisulfate (Plavix) 75 mg PO DAILY COUNT INCLUDES THE [facility] Last Admin: 04/04/17 11:59 Dose: 75 mg Dorzolamide HCl (Trusopt) 1 drop OU BID COUNT INCLUDES THE [facility] Last Admin: 04/04/17 12:00 Dose: 1 drop Ferrous Sulfate (Feosol) 325 mg PO BID COUNT INCLUDES THE [facility] Last Admin: 04/04/17 11:58 Dose: 325 mg Finasteride (Proscar) 5 mg PO DAILY COUNT INCLUDES THE [facility] Last Admin: 04/04/17 12:00 Dose: 5 mg Pantoprazole Sodium (Protonix Ec Tab) 40 mg PO DAILY COUNT INCLUDES THE [facility] Last Admin: 04/04/17 11:59 Dose: 40 mg Ramipril (Altace) 5 mg PO DAILY COUNT INCLUDES THE [facility] Last Admin: 04/04/17 11:59 Dose: 5 mg Timolol Maleate [facility]) 1 drop OU BID COUNT INCLUDES THE [facility] Last Admin: 04/04/17 08:54 Dose: 1 drop - Labs Labs: 04/04/17 05:30 04/04/17 05:30 PT 12.0 Seconds (9.8-13.1) 04/02/17 11:30 INR 1.2 (0.9-1.2) 04/02/17 11:30 APTT 26.7 Seconds (25.6-37.1) 04/02/17 11:30 Assessment and Plan (1) Low BP Status: Acute (2) Bradycardia Status: Acute (3) HINSON (dyspnea on exertion) Status: Acute (4) Near syncope Status: Acute (5) Essential (primary) hypertension Status: Acute
--- NOTE | 2017-04-05 02:08 | CARD ---
APPROVED REPORT Protocol: NEO Test Type: Stress Nuclear Medications: ASA 81MG, ATORVASTATIN 20MG, CLOPIDOGREL 75MG, DORZOLAMIDE, FERROUS 325MG, PROTONIX 40MG, ALTACE 5MG, FLOMAX 0.4MG TIMOPTIC Medical History: CVA 09/25/2016, SYNCOPE, HYPERTENSION, PROSTATED CANCER, HYPERLIPIDEMIA, GLACOMA Target HR: 142 bpm Resting ECG: normal Resting Heart Rate: 58 bpm Resting Blood Pressure: 148/60mmHg submaximum (85%): 121 bpm TEST SUMMARY [id number]/60.0. [id number]/60.0. [id number]/60.0. PRETESTWARM-UP90:[id number]/60.0. EXERCISESTAGE 103:[id number]/60.0. [id number]/60.0. POST EXERCISE Reason for Termination: Developed LBBB Target HR: No Max HR: 106 bpm 76% of Maximum Predicted HR: 142 bpm Exercise duration: 03:00 min:sec, 1 Stage Exercise capacity: 4.6METs Max Blood Pressure: 160/60mmHg Blood Pressure response to exercise: normal resting BP - appropriate response Heart Rate response to exercise: appropriate Chest Pain: No, none Angina index: 0 Arrhythmia: Yes, ventricular premature beats-isolated ST Change: No, none Deviation: 0 mm Stress EKG Interpretation Nondiagnostic stress test EXAM: Myocardial Perfusion REST/STRESS Image QualityGood Imaging Protocol The imaging protocol used to acquire images was Rest Tc-99m/stress Tc-99m 1 day Rest Spect myocardial perfusion imaging was performed in supine position 60 minutes following the injection of 10 mCi of Tc-99 Myoview. Time of rest injection: 7:55 Time of rest imagin:00 At peak stress, the patient was injected intravenously with 30mCi of Tc-99 tetrofosmin after an infusion time of minutes and seconds. Time of stress injection: 11:30 Time of stress imagin:45 Gated Stress Spect was performed 75 minutes after intravenous Tc-99 Myoview injection. The images were gated to evaluate regional wall motion and calculate ventricular ejection fraction. NUCLEAR IMAGE INTERPRETATION LV Perfusion 1 The rest and stress images show normal perfusion. CONCLUSION 1. Negative Myoview stress test at Peak Exercise HR of 76% of PMHR 2. The patient developed LBBB at peak exercise 3. Normal EF and wall motion
== END 2017-04-04 17:00 | disposition home or self-care (01) | DRG 312 ==
LOC: H.ER 10:57 → H.ERHOLD 15:22 → H.TEL 16:36 → OBSVTOIN 04-03 20:33
PROVIDERS: ADMIT Internal Medicine Pulmonary Disease; ATTEND Internal Medicine Pulmonary Disease
DX: R55 Syncope and collapse (principal); I69.351 Hemiplegia and hemiparesis following cerebral infarction affecting right dominant side; I95.9 Hypotension, unspecified; R00.1 Bradycardia, unspecified; D64.9 Anemia, unspecified; S01.81XA Laceration without foreign body of other part of head, initial encounter; I10 Essential (primary) hypertension; W18.39XA Other fall on same level, initial encounter; E78.00 Pure hypercholesterolemia, unspecified; E78.5 Hyperlipidemia, unspecified; Z88.0 Allergy status to penicillin; Z85.46 Personal history of malignant neoplasm of prostate; T44.7X5A Adverse effect of beta-adrenoreceptor antagonists, initial encounter; Y92.9 Unspecified place or not applicable; Y99.9 Unspecified external cause status

== ENCOUNTER 2017-12-29 15:59 | Emergency (ER) | payer MEDICARE ==
[2017-12-29 15:59] VITALS: BMI 29.2
[2017-12-29] MEDS ORDERED: Sodium Chloride 0.9% 500 ML IV STA (16:22)
--- NOTE | 2017-12-29 16:25 | ED PDOC ---
HPI: Chest Pain Time Seen by Provider: 12/29/17 16:14 Chief Complaint (Nursing): Chest Pain Chief Complaint (Provider): Chest pain History Per: Patient History/Exam Limitations: no limitations Onset/Duration Of Symptoms: Days (2) Current Symptoms Are (Timing): Still Present Additional Complaint(s): Pt. with chest pain left upper. Dyspnea on exertion. No nausea, vomit, diarrhea, weakness, headaches, dizziness. No leg pain. Swelling of legs off and on. No cough. Seen by Dr. Reyes today and sent to ER after 4 baby ASA. Currently no pain. 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), HTN, Hypercholesterolemia, Kidney Stones (20-30 years ago) Denies: HIV, Chronic Kidney Disease - Surgical History Surgical History: Appendectomy - Family History Family History: States: Unknown Family Hx - Living Arrangements Living Arrangements: With Family - Social History Alcohol: None Drugs: Denies - Home Medications Home Medications: Ambulatory Orders Medication Instructions Recorded Atorvastatin [Lipitor] 20 mg PO HS 04/02/17 Clopidogrel [Plavix] 75 mg PO DAILY 04/02/17 Dorzolamide 2%/Timolol 0.5% 1 drop EACHEYE BID 04/02/17 [Cosopt 2%-0.5% Opht] Ferrous Sulfate [Feosol] 325 mg PO BID 04/02/17 Ramipril [Altace] 5 mg PO DAILY #30 cap 04/04/17 Finasteride [Proscar] 5 mg PO HS 12/29/17 Folic Acid [Folic Acid] 1 mg PO DAILY 12/29/17 Thiamine [Vitamin B1 Tab] 100 mg PO DAILY 12/29/17 - Allergies Allergies/Adverse Reactions: Allergies Allergy/AdvReac Type Severity Reaction Status Date / Time Penicillins Allergy HEADACHE Verified 12/29/17 16:00 Review of Systems ROS Statement: Except As Marked, All Systems Reviewed And Found Negative Cardiovascular: Positive for: Chest Pain Respiratory: Positive for: SOB with Exertion Physical Exam - Reviewed Nursing Documentation Reviewed: Yes Vital Signs Reviewed: Yes - Physical Exam Appears: Positive for: Uncomfortable Head Exam: Positive for: ATRAUMATIC, NORMAL INSPECTION, NORMOCEPHALIC Skin: Positive for: Normal Color, Warm, DRY Eye Exam: Positive for: EOMI, Normal appearance, PERRL ENT: Positive for: Normal ENT Inspection Neck: Positive for: Normal, Painless ROM Cardiovascular/Chest: Positive for: Regular Rate, Rhythm. Negative for: Chest Non Tender (mild left upper) Respiratory: Positive for: CNT, Normal Breath Sounds Gastrointestinal/Abdominal: Positive for: Normal Exam, Soft. Negative for: Tenderness Back: Positive for: Normal Inspection. Negative for: L CVA Tenderness, R CVA Tenderness Extremity: Positive for: Normal ROM. Negative for: Tenderness, Pedal Edema Neurologic/Psych: Positive for: Alert, Oriented - Laboratory Results Result Diagrams: 12/29/17 17:00 12/29/17 17:00 Interpretation Of Abn Labs: 0.298 - ECG ECG: Positive for: Interpreted By Me, Viewed By Me ECG Rhythm: Positive for: Normal QRS, Sinus Rhythm, Nonspecific Changes ( inferior leads) O2 Sat by Pulse Oximetry: 99 Pulse Ox Interpretation: Normal - Progress ED Course And Treament: 1800: Spoke with Dr. Reyes. Will admit to his service. No additional meds. Pt. took ASA x4 at his office. He took his plavix in the morning. Pt. pain free. Will need admit for NSTEMI evaluation. Will hold heparin and othe anticoagulants at this time. Dr. Tellez pagedaniel and pending call back. 182: Pt. complains of palpitations and some pain to left upper chest. Will give nitro po and repeat ekg. Will tylenol to help alleviate headache from the nitro. 183: Repeat EKG show st elevation MA inferior. Dr. Giraldo contacted. Code heart activated. 184: Pt. accepted for code heart. Will go to [facility] clinical laboratory director. Pain free currently. Family and pt. agree for transfer. Wants plavix 300mg and heparin 4000 units with no drip. No other meds. 184: Dr. Reyes aware of plan. - Core Measure Core Measure Indicators: Code Heart - Critical Care Total Time (In Min): 30 Documented Critical Care: Time excludes all time spent performint seperately billable procedures Disposition - Clinical Impression Clinical Impression: STEMI (ST elevation myocardial infarction) - Patient ED Disposition Is Patient to be Admitted: Yes Counseled Patient/Family Regarding: Studies Performed, Diagnosis - Disposition Disposition Time: 18:06 Condition: SERIOUS
--- NOTE | 2017-12-29 16:52 | RAD ---
HISTORY: Dyspnea. COMPARISON: Comparison chest 04/02/2017 FINDINGS: LUNGS: No active pulmonary disease. PLEURA: No significant pleural effusion identified, no pneumothorax apparent. CARDIOVASCULAR: Heart appears mildly enlarged OSSEOUS STRUCTURES: No significant abnormalities. VISUALIZED UPPER ABDOMEN: Normal. OTHER FINDINGS: None. IMPRESSION: No active disease.
[2017-12-29 17:15] LABS: BASO % 0.7 % (0.0-2.0); EOS # 0.2 K/uL (0.0-0.7); EOS % 3.6 % (0.0-4.0); LYMPH # 0.9 K/uL (1.0-4.3); MEAN CORPUSCULAR HEMOGLOBIN 28.5 pg (27.0-31.0); MEAN CORPUSCULAR HGB CONC 32.4 g/dL (33.0-37.0); MEAN PLATELET VOLUME 8.7 fl (7.2-11.7); MONO # 0.6 K/uL (0.0-0.8); NEUT # 4.7 K/uL (1.8-7.0); NEUT % 72.7 % (50.0-75.0); RBC 4.56 Mil/uL (4.40-5.90); RED CELL DISTRIBUTION WIDTH 15.5 % (11.5-14.5); WHITE BLOOD COUNT 6.5 K/uL (4.8-10.8)
[2017-12-29 17:25] LABS: ALB/GLOB RATIO 1.3 (1.0-2.1); ALT/SGPT 38 U/L (21-72); AST/SGOT 36 U/L (17-59); BLOOD UREA NITROGEN 22 mg/dl (9-20); CALCIUM 9.1 mg/dL (8.4-10.2); GFR AFRICAN-AMERICAN > 60; GFR NON-AFRICAN AMERICAN 58
[2017-12-29 17:42] LABS: PARTIAL THROMBOPLASTIN TIME 27.7 Seconds (25.6-37.1)
[2017-12-29 17:51] LABS: B-TYPE NATRIURETIC PEPTIDE 324 pg/ml (0-900)
[2017-12-29 19:00] VITALS: TEMP 98.2
[2017-12-29 19:03] VITALS: PULSE 85
[2017-12-29 19:14] VITALS: BP 142/77; RESP 16
[2017-12-29 19:15] VITALS: O2SAT 99
--- NOTE | 2017-12-30 08:44 | CARD ---
APPROVED REPORT EKG Measurement Heart [id number] MI [id number] <Conclusion> Normal sinus rhythm Marked ST abnormality, possible lateral subendocardial injury Abnormal ECG
--- NOTE | 2017-12-30 08:46 | CARD ---
APPROVED REPORT EKG Measurement Heart [id number] MD [id number] <Conclusion> Normal sinus rhythm Normal ECG
== END 2017-12-29 19:25 | disposition short-term general hospital (02) ==
LOC: H.ER 15:59 → H.ERHOLD 17:52 → UNDOADMIN 17:52 → UNDODISIN 19:25
DX: I21.3 ST elevation (STEMI) myocardial infarction of unspecified site (principal); I10 Essential (primary) hypertension; E78.00 Pure hypercholesterolemia, unspecified; I69.951 Hemiplegia and hemiparesis following unspecified cerebrovascular disease affecting right dominant side; D64.9 Anemia, unspecified; Z87.891 Personal history of nicotine dependence
CPT/HCPCS: 71045; 80053; 83880; 84484; 85025; 85610; 85730; 86850; 86900; 93005; 96374; 99285; J1644; J7040